=== PATIENT | female | born 1990 | race Caucasian/White ===

== ENCOUNTER 2018-02-10 17:46 | Emergency (ER) | payer BC, SELFPAY ==
--- NOTE | 2018-02-10 17:46 | DT_ITS ---
This patient was seen during an EMR downtime February 07, 2018 - February 14, 2018. This patient may have a combination of paper and electronic documentation or all paper documentation. All documentation is viewable within the e-chart portion of [facility] for each patient visit.
== END 2018-02-10 18:00 | disposition home or self-care (01) ==
LOC: ED 02-11 10:48
PROVIDERS: Emergency Provider Emergency Medicine
DX: O21.1 Hyperemesis gravidarum with metabolic disturbance (principal); Z3A.01 Less than 8 weeks gestation of pregnancy
CPT/HCPCS: 96374; 99283; J7030; A4216; J2405

== ENCOUNTER 2018-02-12 19:03 | Observation (INO) | payer BC, SELFPAY ==
--- NOTE | 2018-02-12 22:00 | DT_ITS ---
This patient was seen during an EMR downtime February 07, 2018 - February 14, 2018. This patient may have a combination of paper and electronic documentation or all paper documentation. All documentation is viewable within the e-chart portion of [facility] for each patient visit.
[2018-02-15 16:30] LABS: Thyroid Stim Hormone (TSH) 0.14 uIU/mL (0.358-3.74)
[2018-02-15 16:40] LABS: BUN 12 mg/dL (7-18); BUN/Creat Ratio 17.6 RATIO (10-20); Creatinine, Serum 0.68 mg/dL (0.55-1.02); EST Glomerular Filtration Rate 108 mL/min (>60); Est Glom Filt Rate - Afr Amer 131 mL/min (>60); Glucose 77 mg/dL (74-106)
[2018-02-15 16:41] LABS: Anion Gap 17 (5-15); Calcium,Total 9.2 mg/dL (8.5-10.1); Chloride 105 mmol/L (98-107); Sodium Level 136 mmol/L (136-145)
== END 2018-02-13 19:30 | disposition home or self-care (01) ==
LOC: ED 02-13 09:46 → MS3 02-13 11:25
PROVIDERS: Admitting Provider Obstetrics & Gynecology; Emergency Provider Emergency Medicine; Visit Provider Obstetrics & Gynecology
DX: O21.0 Mild hyperemesis gravidarum (principal); Z3A.01 Less than 8 weeks gestation of pregnancy; E86.0 Dehydration
CPT/HCPCS: 36415; 80048; 84443; 87086; 96361; 96374; 96376; 99218; 99283; 99284; J7030; A4216; G0378; J2405

== ENCOUNTER 2018-03-01 07:06 | Emergency (ER) | payer BC, SELFPAY ==
[2018-03-01 07:06] VITALS: BP 111/73; PULSE 76; RESP 18; TEMP 36.6; O2SAT 98; BMI 16.7
--- NOTE | 2018-03-01 07:34 | US_ITS ---
STUDY: FIRST TRIMESTER OBSTETRICAL ULTRASOUND REASON FOR EXAM: Female, 28 years old. Left pelvic pain. The patient is . LMP: December 23, 2017. TECHNIQUE: Transvaginal PRIOR ULTRASOUND: None. FINDINGS: There is visualization of a single gestational sac in a normal intrauterine position. There is a visualized yolk sac. The placenta is non-visualized. There is visualization of a live embryo. The crown-rump length (CRL) measures 3.4 cm, indicating an estimated gestational age (EGA) of 10 weeks, 2 days. There is demonstrated cardiac activity with a heart rate of 160 bpm. The estimated gestation age (EGA) by LMP is 9 weeks, 5 days. The estimated date of delivery ([place]) by LMP is September 29, 2018. The estimated gestation age (EGA) by US is 10 weeks, 2 days. The estimated date of delivery ([place]) by US is September 25, 2018. The uterus measures 10.4 cm x 7.3 cm x 6.4 cm. There is no demonstrated uterine fibroid. The cervix is closed. The right ovary measures 2.0 cm x 2.3 cm x 1.7 cm. There is no right ovarian cyst. There is no visualized right adnexal mass or complex lesion. The left ovary measures 3.0 cm x 2.5 cm x 2.1 cm. A dominant follicle is seen within the left ovary measuring 1.4 cm x 1.1 cm x 1.2 cm. There is no visualized left adnexal mass or complex lesion. There is no fluid in the cul de sac. US/Transvaginal w/Preg US IMPRESSION: Single live intrauterine gestation with a mean gestational age of 10 weeks and 2 days. Dominant follicle in the left ovary measuring 1.4 cm x 1.1 cm x 1.2 cm. Electronically Signed: Shahab Abbott MD at 8:41 EDT Tel [phone], Service support ,
--- NOTE | 2018-03-01 07:37 | ED.DCSUM_ITS ---
- ER Visit Summary Date of Service: 03/01/18 Chief Complaint: Left lower quadrant abdominal pain History of Present Illness: The patient is a 28 F presenting with left lower quadrant abdominal pain. Patient states this started in the middle of night. She started have pain in the left lower abdomen. She states that it then radiated to her hip. She denies injury. Denies vaginal bleeding. She is 10 weeks . Denies nausea or vomiting. She states symptoms lasted for approximately 3 hours. She has complete resolution of her symptoms currently. Physical Examination: Vitals are stable. Patient is afebrile. Alert no acute distress. HEENT exam is unremarkable. Neck is supple. Lungs are clear and equal bilaterally. Heart is regular rate and rhythm. Abdomen is soft nontender nondistended. No guarding rebound. Extremities are unremarkable. Skin is warm and dry. No focal neurologic deficit. Remainder of exam is unremarkable. Emergency Department Course and Treatment: Urinalysis shows 10-25 white blood cells, 25-50 red blood cells, 1+ bacteria. Pelvic ultrasound shows single live IUP 10 weeks 2 days. Patient is resting comfortably in the emergency department. She has no return of her symptoms. She is given Keflex. 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 Advised return to ED if worsening complaints Disposition: Discharge home Impression: Abdominal pain resolved; , UTI This note was generated with [employer] dictation software. It may contain incorrect words, spelling, and punctuation that were not noted in review of the chart prior to signing ED Disposition - Plan for ED Patient: Chief Complaint: Abd Pain Instructions: Care for a Healthy Baby, ED UTI Cystitis Female Prescriptions: Cephalexin Suspension [Keflex Suspension] 500 mg PO Q12 #7 days Referrals: Liset Waller CNM [Certified Nurse Cutter Operator [facility]] - Adonis Mccormack MD [Primary Care Provider] -
[2018-03-01 08:03] LABS: Color, Urine Yellow (Yellow); Glucose, Dipstick Normal (Normal); Ketone-Dipstick Negative (Negative); Leukocyte Esterase-Dipstick 100 /ul (Negative); Nitrite-Dipstick Negative (Negative); Occult Blood-Urine 250 /ul (Negative); Protein-Dipstick 30 mg/dl (Negative); Urine Bilirubin Dipstick Negative (Negative); Urine Clarity Sl. Cloudy (Clear); Urine Urobilinogen Normal (Normal)
[2018-03-01 08:19] LABS: Bacteria 1+ /hpf (None Seen); Mucous, Urine 1+ /hpf (<or=2+); Red Blood Cells-Urine 25-50 SEEN /hpf (0-5); Squamous Epithelial Cells - UA 0-5 SEEN /hpf (5-10); White Blood Cells 10-25 SEEN /hpf (0-5)
[2018-03-01 09:15] VITALS: BP 113/80; PULSE 67; RESP 16; O2SAT 100
--- NOTE | 2018-03-01 09:15 | ED.DEP ---
ED Disposition - Plan for ED Patient: Chief Complaint: Abd Pain Instructions: Care for a Healthy Baby, ED UTI Cystitis Female Prescriptions: Cephalexin Suspension [Keflex Suspension] 500 mg PO Q12 #7 days Referrals: Adonis Mccormack MD [Primary Care Provider] - Liset Waller CNM [Certified Nurse Complex Case Manager] -
== END 2018-03-01 09:52 | disposition home or self-care (01) ==
LOC: ED 07:31
PROVIDERS: Emergency Provider Emergency Medicine
DX: O23.41 Unspecified infection of urinary tract in pregnancy, first trimester (principal); Z3A.10 10 weeks gestation of pregnancy
CPT/HCPCS: 76817; 81001; 87086; 87088; 99282

== ENCOUNTER → 2018-08-08 12:03 | Outpatient (CLI) | payer BC, SELFPAY ==
[2018-08-08 12:44] LABS: Fetal Fibronectin Negative
--- OUTSIDE RECORDS SUMMARY | 2018-10-01 18:17 | XMS RPT_ITS ---
:1990 Author Organization OHIP Care Team Providers Name Role Phone DAYNA KAMINSKI Attending Unavailable LUZ WALLER (CNM) Referring Unavailable ASHISH GREGG Attending Unavailable ASHISH GREGG Attending Unavailable ASHISH GREGG Referring Unavailable ASHISH GREGG Attending Unavailable LUZ WALLER (CNM) Attending Unavailable ASHISH GREGG Referring Unavailable LUZ WALLER (CNM) Attending Unavailable LUZ WALLER (CNM) Referring Unavailable LUZ WALLER (CNM) Attending Unavailable LUZ WALLRE (CNM) Referring Unavailable LUZ WALLER (CNM) Attending Unavailable VELASQUEZ WALLERSSICA (CNM) Attending Unavailable VELASQUEZ WALLERSSICA (CNM) Attending Unavailable VELASQUEZ WALLERSSICA (CNM) Referring Unavailable NEYHART RAMIREZ, ASHISH Attending Unavailable PEYTON VILLAFANA (CNM) Attending Unavailable NEYHART RAMIREZ, ASHISH Attending Unavailable NEYHART RAMIREZ, ASHISH Referring Unavailable LUZ WALLER (CNM) Attending Unavailable KAMINSKI, DAYNA A Attending Unavailable NEYHART RAMIREZ, ASHISH Referring Unavailable KAMINSKI, DAYNA A Attending Unavailable NEYHART RAMIREZ, ASHISH Referring Unavailable WALLERLUZ (CNM) Attending Unavailable KAMINSKI, DAYNA A Attending Unavailable NEYHART RAMIREZ, ASHISH Referring Unavailable NEYHART RAMIREZ, ASHISH Referring Unavailable PEYTON VILLAFANA (CNM) Attending Unavailable NEYRYLIET RAMIREZ, ASHISH Attending Unavailable Irma Little Attending Unavailable Irma Little Referring Unavailable Adonis Mccormack Primary Care Unavailable Irma Little Admitting Unavailable Adonis Mccormack Primary Care Unavailable Nettie Spann Admitting Unavailable Nettie Spann Attending Unavailable ANT CESPEDES Attending Unavailable ANT CESPEDES Referring Unavailable Adonis Mccormack Primary Care Unavailable Adonis Mccormack Primary Care Unavailable Susan Arguelles Attending Unavailable Peyton Villafana Attending Unavailable Adonis Mccormack Primary Care Unavailable Peyton Villafana Referring Unavailable PROBLEMS PROBLEMS DATE TYPE CONDITION / CODE ATTENDING STATUS SOURCE 08/10/2018 Unknown O09.219 - Peyton Villafana Active [place] Supervision of [facility] with Hospital history of Repository pre-term labor, unspecified trimester / O09.219(ICD-10) 06/27/2018 Active Encounter for NA Active [facility] [place] [facility] supervision of [facility] other normal Repository , second trimester / Z34.82(ICD-10) 06/27/2018 Active 27 weeks gestation NA Active [facility] Z3A.27(ICD-10) Repository 03/16/2018 Active Anemia NA Active [facility] [place] [facility] complicating [facility] , first Repository trimester / O99.011(ICD-10) 03/16/2018 Active 12 weeks gestation NA Active [facility] Z3A.12(ICD-10) Repository 03/16/2018 Active Encounter for YAMILEX, Active [facility] [place] [facility] DAYNA A [facility] screening for Repository nuchal translucency / Z36.82(ICD-10) 02/21/2018 Active 8 weeks gestation LUZ WALLER Active [facility] [place] [facility] of / ([facility]) [facility] Z3A.08(ICD-10) Repository 02/14/2018 Active Supervision of NA Active [facility] [place] [facility] high risk [facility] , Repository unspecified, first trimester / O09.91(ICD-10) 02/14/2018 Active Unknown / LUZ WALLER Active [facility] [place] [facility] UNK(Unknown) ([facility]) [facility] Repository 06/02/2018 Unknown O21.0 - Mild Zana, Active [place] hyperemesis Nettie [facility] gravidarum / Hospital O21.0(ICD-10) Repository PROCEDURES PROCEDURES No Procedure Records FoundRESULTS RESULTS DISCHARGE INSTRUCTION Observed: 08/19/2018 Status: F Source: [place] 8:24 AM [facility] REPOSITORY [facility] Medical Records Department [address] [place] [address] Instructions for Home/Discharge Instructions 08/19/18822 MR#: [id number] Acct: [id number] Name: SHAYE QUEEN Rep #: [id number] : 1990 28 From: Ashish Ramirez MD PCP: Adonis Mccormack MD Status: ADM IN Discharge Diet: No Restrictions Discharge Activity: Return to Normal Activity, May not drive while taking narcotic pain medications., May Shower May resume sexual activity in: 4-6 weeks Additional Activity Instructions:: Nothing in the vagina for 4-6 weeks. You may return to work/school in 6 weeks. Call your doctor if your incision/area has: Continuous Slow Oozing, Sudden Increased Bleeding, Increased Pain/ Swelling, Increased Redness, Foul Smelling Discharge Additional Instructions: If you experience any of the following, contact your healthcare provider. * Bleeding that soaks a pad every hour for 2 hours * Fever 100.4 or higher * Unrelieved incision or abdominal pain * Swelling, redness, discharge or bleeding from your incision or episiotomy site * Your incision begins to separate * Problems urinating (including inability to urinate or burning while urinating). * Visual changes * Severe headache * Flu-like symptoms * Pain or redness in one of both of your breasts * Pain, warmth, tenderness or swelling in your legs, especially the calf area * Frequent nausea and vomiting * Symptoms of depression or anxiety If you experience any of the following, call 911 or go to the nearest Emergency Room. * Chest pain * Problems breathing * Seizure activity * Partial or complete paralysis of a body part, slurred speech, weakness or drooping of the face, or a sudden inability to walk or hold your balance Allergies/Adverse Reactions: Allergies Penicillins Allergy (Verified 03/01/18 07:08) Unknown Medications to take at Discharge Ibuprofen Liquid [Motrin Liquid] 600 mg PO Q6H PRN PRN 7 Days udc 08/19/18 The following prescriptions were given: Ibuprofen Liquid [Motrin Liquid] 600 mg PO Q6H PRN PRN 7 Days udc PRN Reason: Mild Pain (1-310) When: Call to make an appointment with your doctor in 6 weeks. If you had elevated Blood Pressure or 4th degree laceration you will need to be seen in 2 weeks. Primary Care Physician: Adonis Mccormack MD [Primary Care Provider] - Test Results: Test results from this visit will be discussed in further detail at your follow-up appointment, if applicable. 08/19/18823 <Electronically signed by Ashish Ramirez MD> Date Ashish Donald MD CC: Adonis Mccormack MD OPERATIVE REPORT Observed: 08/18/2018 Status: F Source: [place] 8:58 PM [facility] REPOSITORY [facility] Medical Records Department [address] [place] [address] Operative Report 08/18/182038 MR#: [id number] Acct: [id number] Name: SHAYE QUEEN Rep #: [id number] : 1990 28 From: Irma Little PCP: Adonis Mccormack MD Status: ADM IN Location: [id number] Vaginal Delivery Maternal Presentation: Active Labor Amniotic Membrane Rupture Type: Spontaneous Amniotic Fluid Description: Bloody Final VALENTINA: 09/22/18 Gestational age: 35 Weeks and 0 Days Date of Procedure: 08/18/18 Pre-Operative Diagnosis: (1) labor (2) Suspected placental abruption Post-Operative Diagnosis: (1) labor (2) Placental abruption Surgery/ Procedure Performed: Spontaneous Vaginal Delivery Type of Anesthesia: Epidural Description of Procedure: Patient prepped AND draped when c/c/+2. She pushed to deliver head. Shoulders AND body easily followed. placed on maternal abdomen AND 3VC clamped and cut in delayed fashion. Placenta delivered quickly with minimal traction. Good uterine tone obtained. Presentation: LUIS ANTONIO Placental Delivery Description: Spontaneous Placenta Disposition: [facility] Cord Vessel Description: 3 Vessels Cord Entanglement: None Estimated Blood Loss: 200ml Infant A gender: Female (1 minute): 8 (5 minute): 9 Episiotomy Description: None Laceration: None Medications given after delivery: IV Pitocin Complications: None 08/18/182057 <Electronically signed by Irma Little > Date Irma Little CC: Adonis Mccormack MD; Irma Little Signed CBC-COMPLETE BLOOD CNT Collected: 08/18/2018 Status: F Source: [place] NO DIFF 2:00 PM [facility] REPOSITORY TYPE CODE TESTS RESULT OUT OF RANGE REFERENCE UNITS LAB L100.1000 4.4-11.0 K/mm3 Normal WBC 9.8 LAB L100.1200 4.2-5.4 M/mm3 Low RBC 3.95 LAB L100.1300 12.0-15.0 g/dl Low HGB 11.1 LAB L100.1400 37-47 % Low HCT 33.9 LAB L100.1500 81-99 fL Normal MCV 85.8 LAB L100.1600 27.0-32.0 pg Normal MCH 28.1 LAB L100.1700 32-36 g/gl Normal MCHC 32.7 LAB L100.1810 11.6-14.6 % Normal RDW CV 12.7 LAB L100.1820 35.1-43.9 fl Normal RDW SD 39.1 LAB L100.1900 150-450 K/mm3 Normal PLT 193 LAB L100.2000 6.2-12.0 fl Normal MPV 11.5 Performed By: #### L100.0500, B101.7450 #### [facility] [address] [place], [address] TYPE AND SCREEN Collected: 08/18/2018 Status: F Source: [place] 2:00 PM [facility] REPOSITORY Order Comment: Reason for Type AND Screen/Red Cells: ROUTINE TYPE CODE TESTS RESULT OUT OF RANGE REFERENCE UNITS LAB B10.0800 A Normal BLOOD TYPE GEL POSITIVE LAB B100.4000 Normal Antibody NEGATIVE Screen Performed By: #### L100.0500, B101.7450 #### [facility] [address] [place], [address] HISTORY AND PHYSICAL Observed: 08/18/2018 Status: F Source: [place] EXAM 1:46 PM [facility] REPOSITORY [facility] Medical Records Department [address] [place] [address] History and Physical 08/18/18 1337 MR#: [id number] Acct: [id number] Name: SHAYE QUEEN Rep #: [id number] : 1990 28 From: Irma Little PCP: Adonis Mccormack MD Status: REG CLI Y Location: [place] [address] History Date of Admission: 08/18/18 Final VALENTINA: 09/22/18 Final VALENTINA Source: US <20 weeks Gestational age: 35 Weeks and 0 Days History of this : This is a 28 year-old, G [], P [], at weeks gestational age. Surgical History: Surgical History (Last Updated 08/18/18 @ 13:39 by Irma Little) History of breast surgery Z98.890 History of tonsillectomy Z90.89 Allergies Penicillins Allergy (Verified 03/01/18 07:08) Unknown Home Medications: Home Medications Hydroxyprogesterone Caproate [Shidler] 250 mg IM Q7D 08/18/18 Smoking Status: Never smoker Heart Tracin with mod variability, accels TOCO Analysis: Q 4-5 min History Past Pregnancies: Past Pregnancies h/o 32 AND 34wk deliverie Delivery Name GA/Weeks Outcome Route WeiInfant GeLabor LenAnesthesiDelivery Provider FOB Date ght [facility] a Location Labs: See [facility] H AND P Patient getting weekly Mckenna injections Physical Exam General: Alert, Oriented x3 Abdomen: Soft, Non Tender, Non-Distended, Gravid Estimated gestational size: Appropriate for gestational size Presentation: Cephalic Cervix Dilation (cm): 3 Station: -2 Effacement (%): 80 Assessment/Plan All Active Problems Threatened in early (Acute) UTI (urinary tract infection) during (Acute) 28yo female @ 35 weeks with threatened PTL Admit for observation FWB - BMZ #1 given, EFM reassuring Rapid GBS sent IVF AND admission labs Routine care 08/18/18 1346 <Electronically signed by Irma Little > Date Irma Little Cosigner Signature: Date (if applicable) CC: Adonis Mccormack MD; Irma Little Signed GROUP B STREP DNA Collected: 08/18/2018 Status: F Source: [place] BY PCR 1:35 PM [facility] REPOSITORY Order Comment: Has pt arrived? Y Comments: rapid gbs TYPE CODE TESTS RESULT OUT OF RANGE REFERENCE UNITS LAB L8200.0100 Negative Normal GBS TEST Negative RESULT Performed By: #### L8200.0000 #### [facility] [address] [place], [place], [address] Observed: 08/18/2018 Status: F Source: [place] CULTURE, GROUP B 12:00 AM [facility] STREPTOC[facility]CCUS REPOSITORY RICARDO Culture Group B Beta Streptococcus is not isolated. Performed By: #### M100.1800 #### [facility] [address] [place], [place], [address] PROGRESS Observed: 08/10/2018 Status: COMPLETED Source: [place] 9:58 AM [facility] REPOSITORY HNO ID: [id number] Author: Sangeetha Mccormack Ma Service: (none) Author Type: (none) Type: Progress Notes Filed: 08/10/2018 12:33 PM Note Text: Patient identified by name and date of . Shaye Queen presents today for a vaccination of Tdap. Patient denies an allergy to latex: yes Patient denies a severe (life-threatening) allergy to a previous dose of Tdap, DTP, DTaP, DT or Td vaccine. Yes Patient denies history of epilepsy or neurological problems: Yes Patient is afebrile and denies being moderately or severely ill: Yes Patient denies history of Guillain-Francitas Syndrome (a severe paralytic illness): Yes Tdap Adacel injection was given without incident. See immunizations for details of immunizations administered today. VIS sheet provided: Yes Provider Luz Waller CNM was present in office at time of injection. Sangeetha Mccormack Ma FIBRONECTIN Collected: 08/08/2018 Status: F Source: [place] 11:30 AM [facility] REPOSITORY Order Comment: CALL RESULTS TO: [phone] TYPE CODE TESTS RESULT OUT OF RANGE REFERENCE UNITS LAB L205.0100 Normal fFN Negative Performed By: #### L205.0000 #### [facility] [address] [place], [address] CNPN Observed: 08/08/2018 Status: COMPLETED Source: [place] 12:00 AM [facility] REPOSITORY Telephone (WOOB) SHAYE QUEEN ([id number]) 1990 F Date Time Provider Department 08/08/18 PEYTON VILLAFANA) ELROY During your visit today, we recorded the following information about you: Peyton Villafana APRN.CNM 08/08/2018 2:08 PM Signed Phone call to patient re: negative fFN result. No answer. Unable to leave a message in voice mail box as it was full. Will notify patient in person at next visit on Wednesday08/10/18. Peyton Villafana APRN.ANGY Morales LPN 08/08/2018 2:44 PM Signed Patient called back and was given results Allergies As of Date: 08/08/2018 Noted Allergy Reaction PENICILLINS 04/04/2009 Comments: CHILDHOOD REACTION Date Reviewed: 08/08/2018 Reviewed by: Peyton Villafana - Fully Assessed Reason for Visit: fFN negative result [Other] Primary Visit Diagnosis:History of delivery, currently [O09.219] Prescriptions as of 08/08/2018 Sig: MCKENNA (PF) 275 MG/1.1 ML SUB* PROMETHAZINE 25 MG RECTAL SUP* 25 mg by RECTAL route every 6* DOXYLAMINE 10 MG-PYRIDOXINE (* Day 1: Take 2 tabs at bedtime* Patient not taking: Reported on 02/21/2018 FOLIC ACID 1 MG TABLET Take 1 tablet by mouth once d* Patient not taking: Reported on 05/11/2018 Problem List As Of Date 08/08/2018 Noted Resolved History of delivery, currently *INVALID FOR* More... Vaginal bleeding in [O46.90] INVALID FOR*01/22/2016 More... UTI in [O23.40] INVALID FOR*01/22/2016 More... Nausea and vomiting in [O21.9] INVALID FOR*01/22/2016 More... History of mitral valve prolapse [Z86.79] INVALID FOR* More... Patient requested diagnostic testing [Z01.89] INVALID FOR*01/22/2016 More... 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 Nausea and vomiting in [O21.9] INVALID FOR*03/08/2017 More... MVP (mitral valve prolapse) [I34.1] INVALID FOR* More... UTI (urinary tract infection) in , ant*INVALID FOR*03/08/2017 More... History of delivery, currently *INVALID FOR*03/08/2017 More... History of recent travel [Z78.9] INVALID FOR*03/08/2017 More... BV (bacterial vaginosis) [N76.0, B96.89] INVALID FOR*03/08/2017 Nausea and vomiting during [O21.9] INVALID FOR* More... Anemia in [O99.019] INVALID FOR* More... Encounter Status:Closed by PEYTON VILLAFANA CNM on 08/08/18 PROGRESS Observed: 07/15/2018 Status: COMPLETED Source: [place] 10:10 AM [facility] REPOSITORY HNO ID: [id number] Author: Ashish Ramirez Service: (none) Author Type: Physician Type: Progress Notes Filed: 07/15/2018 11:17 AM Note Text: NST SUMMARY PROVIDER ASSESSMENT AND INTERPRETATION Shaye Sanchez is a 28 year old female, , who is at 30w1d with an AVLENTINA of 09/22/2018, by Ultrasound dating method. Indications for NST: Other: h/o PT deliveries- new onset back pain Baseline: 140 Variability: Moderate Accelerations: Present 15 X 15 Decelerations: None Contractions: TOCO: None Interpretation: Category I and Reactive SIGNATURE: Ashish Donald MD Observed: 07/14/2018 Status: F Source: [place] URINE CULTURE 11:00 [facility] REPOSITORY Sp. Request/Comment: - Specimen received in preservative Culture Result - <10,000 CFU/ml Normal urogenital marion Performed By: #### URCUL #### [facility] [place] [facility] [address], [place] [address] CBC AND DIFFERENTIAL Collected: 06/27/2018 Status: F Source: [place] 10:30 AM [facility] REPOSITORY TYPE CODE TESTS RESULT OUT OF REFERENCE UNITS RANGE LAB WBC 3.70-11.00 k/uL WBC 8.37 LAB RBC 3.90-5.20 m/uL Low RBC 3.59 LAB HGB 11.5-15.5 g/dL Low Hemoglobin 11.0 LAB HCT 36.0-46.0 % Low Hematocrit 34.0 LAB MCV 80.0-100.0 fL MCV 94.7 LAB MCH 26.0-34.0 pG MCH 30.6 LAB MCHC 30.5-36.0 g/dL MCHC 32.4 LAB RDWCV 11.5-15.0 % RDW-CV 12.1 LAB PLTCT 150-400 k/uL Platelet Count 196 LAB MPV 9.0-12.7 fL MPV 11.6 LAB ANEUT % Neut% 74.7 LAB AANEUT 1.45-7.50 k/uL Abs Neut 6.25 LAB ALYMP % Lymph% 19.0 LAB AALYMP 1.00-4.00 k/uL Abs Lymph 1.59 LAB AMONO % [place]% 5.4 LAB AAMONO <0.87 k/uL Abs [place] 0.45 LAB AEOS % Eosin% 0.7 LAB AAEOS <0.46 k/uL Abs Eosin 0.06 LAB ABASO % Baso% 0.2 LAB AABASO <0.11 k/uL Abs Baso <0.03 LAB AUNRBC 0 /100 WBC NRBCs 0.0 LAB ABNRBC <0.01 k/uL Absolute nRBC <0.01 LAB DTYP DTYPE Auto Diff Performed By: #### CBCDIF #### [facility] [address] [place], [place] [address] 50G, 1HR GEST. Collected: 06/27/2018 Status: F Source: [place] GSCN 10:30 AM [facility] REPOSITORY TYPE CODE TESTS RESULT OUT OF REFERENCE UNITS RANGE LAB GLUP 74-134 mg/dL Glucose 114 Screen, Preg Result Comment: [place] [employer] ([place]) guidelines state a gestational diabetes mellitus positive screen is made, in women not previously diagnosed with overt diabetes, when the 1 hr plasma glucose level is equal to or above 140 mg/dL. The [facility] [employer] [facility] [place] recommends a 135 mg/dL cutoff. Performed By: #### GLTGST #### [facility] [place] [facility] [address], [place] [address] PROGRESS Observed: 06/07/2018 Status: COMPLETED Source: [place] 3:35 PM [facility] [place] REPOSITORY HNO ID: [id number] Author: Sangeetha Mccormack Ma Service: (none) Author Type: (none) Type: Progress Notes Filed: 06/08/2018 12:09 PM Note Text: 28 year old female here for INACTIVATED INFLUENZA VACCINE. [id number] Season Patient is identified by name and date of : Yes [] CONTRAINDICATIONS color enhanced section Age less than 6 months? No Allergy to eggs, chicken, chicken feathers, or chicken dander? No Allergy to thimerosal (a preservative) or formaldehyde, gelatin? No History of severe reaction to any vaccine component or a previous dose of influenza vaccination? No History of Guillain-Francitas Syndrome within 6 weeks after a previous influenza vaccine? No Patient is not moderately or severely ill? No Current temperature greater or equal to 100.4F? No History of Bone Marrow Transplant prior 6 months or solid organ transplant in the past 3 months ? No History of fainting after a prior injection or medical procedure? No- ? If patient has fainted in the past, the CDC recommends sitting or lying down for 15 minutes after the vaccination. [] VERIFICATION color enhanced section Was the answer Yes for any of the above contraindications? No contraindications present. Acceptable to proceed with vaccine. Patient/guardian agrees the above answers are true to the best of their knowledge? Yes Flu vaccine information sheet given? Yes See immunization activity in [facility] for details of immunizations adminstered today. Patient age: [age] year old For The 7368-2859 Flu Season 6-35 months old: Fluzone 0.25 ml - IM (Preservative Free) 3 years of age: Fluzone 0.5 ml - IM (Preservative Free) 3 years and older: Fluzone 0.5 ml- IM-(with Preservatives) 65+ years old: 2-49 years old Fluzone High-Dose 0.5 ml - IM (Preservative Free) FLUMIST- intranasal REMEMBER: If patient is less than 9 years of age and this is the first vaccine of Influenza to be received in any flu season, they should receive a second dose in one months time. PROGRESS Observed: 05/26/2018 Status: COMPLETED Source: [place] 10:53 AM [facility] REPOSITORY HNO ID: [id number] Author: Dayna Kaminski Service: (none) Author Type: Physician Type: Progress Notes Filed: 05/26/2018 10:55 AM Note Text: A sylvester intrauterine has been noted. The heart rate is regular without dysrhythmias and falls within the normal range for gestational age. Estimated Date of Delivery: 09/22/18 EGA = 23w0d AGA at the 56 th% Evaluation of the cervix: Evaluation of the cervix has been performed by transvaginal ultrasound secondary to PTD x 2. The cervix measure 33.4 mm. No dynamic changes have been visualized. No sludge is noted near the cervix There is no evidence of hydrops. The amniotic fluid volume is in the normal range. The placenta is fundal. The limitations of ultrasound in detecting malformations and chromosomal anomalies has been addressed. Body mass index is 20.18 kg/m?. RECOMMENDATIONS: - Follow up ultrasound as clinically indicated - On 17 P PROGRESS Observed: 05/12/2018 Status: COMPLETED Source: [place] 9:28 AM [facility] REPOSITORY HNO ID: [id number] Author: Dayna Kaminski Service: (none) Author Type: Physician Type: Progress Notes Filed: 05/12/2018 9:31 AM Note Text: A sylvester intrauterine has been noted. The heart rate is regular without dysrhythmias and falls within the normal range for gestational age. Estimated Date of Delivery: 09/22/18 EGA = 21w0d Evaluation of the cervix: Evaluation of the cervix has been performed by transvaginal ultrasound secondary to PTD x 2. The cervix measure 35 mm. No dynamic changes have been visualized. No sludge is noted near the cervix There is no evidence of hydrops. The amniotic fluid volume is in the normal range. The placenta is fundal. The limitations of ultrasound in detecting malformations and chromosomal anomalies has been addressed. RECOMMENDATIONS: - Follow up ultrasound after 2 weeks for cervical length secondary to history of PTD at 32 and 34 weeks - On 17 P PROGRESS Observed: 04/27/2018 Status: COMPLETED Source: [place] 11:42 AM [facility] REPOSITORY HNO ID: [id number] Author: Dayna Kaminski Service: (none) Author Type: Physician Type: Progress Notes Filed: 04/27/2018 11:49 AM Note Text: A sylvester fetus in utero with symmetric measurements Adequate growth (AGA). Estimated Date of Delivery: 09/22/18 EGA = 18w6d The anatomy appears normal. There are no evident malformations and /or effusions. No genetic markers are noted. The amniotic fluid volume is within normal limits. Norml cervical length without dynamic changes The sensitivity of ultrasound in the detection of malformations overall is approximately 35%. RECOMMENDATIONS: - Follow up ultrasound every 2 weeks for cervical length secondary to PTD x 2 - 17 P therapy secondary to PTD at 32 and 34 weeks SEQUENT SCRN SECOND Collected: 04/13/2018 Status: F Source: [facility] 10:12 AM [facility] REPOSITORY TYPE CODE TESTS RESULT OUT OF REFERENCE UNITS RANGE LAB SE1PAP MoM 1.37 SE1 MALENA A LAB SE2AFP MoM 0.61 SE2 AFP LAB SE2HCG MoM 0.41 SE2 hCG LAB SE2UE3 MoM 1.31 SE2 Unconj uE3 LAB SE2INH MoM 0.67 SE2 Dimrc Inhibin A LAB SE1HCG MoM 0.79 SE1 hCG LAB SE2INT Screen Negative SE2 Interp Screen Negative LAB SE2SDN SE2 Scrn Rsk 1:9900 Dn Synd LAB SE2ADN 1:710 SE2 Age Rsk Dn Snyd LAB SE2STS SE2 Scr Rsk <1:13538 Trsmy 13 LAB SE2STR SE2 Scr Rsk <1:21533 Trsmy18 LAB SE2SON SE2 Scr Rsk 1:7000 ONTD LAB SE2RS View Seq Scrn results in Second Trim Scanned Documents link when available. LAB SEQLRV SEQ Staff Reviewed by Review Pardeep Sifuentes MD, PhD ([id number]) Performed By: #### SEQL2 #### [facility] [address] [address] CNPN Observed: 04/07/2018 Status: COMPLETED Source: [place] 12:00 AM [facility] REPOSITORY Telephone (HIOB) SHAYE SANCHEZ ([id number]) 1990 F Date Time Provider Department 04/07/18 COMB[facility] INFORMATION [facility]ENTER OFFICER MANE During your visit today, we recorded the following information about you: Mary Ellen Hendricks RN 04/07/2018 11:38 AM Signed Call placed to patient to check on status of Mckenna receipt and start. LMTCB. Mary Ellen Hendricks RN 04/07/2018 1:07 PM Signed Patient advises she has yet to hear from [facility] regarding shipping. Call to [facility] with patient on line. Ready to ship, $25 co-pay. Patient recently acquired a secondary [facility] insurance plan. Patient gave policy number to [facility] rep to process to see if this covers the co-pay. They will process this, it will take 3-5 business days. Will check back in a few days. Patient agrees to pay the 1st $25 co-pay in the meantime and knows there is not guarantee the 2nd plan will reimburse. The rep released it, and they will call her in 1 hour or so to arrange delivery to her home. Mary Ellen Hendricks RN 04/11/2018 8:48 AM Signed Call placed to patient to check on status of receipt and start of Mckenna. LMTCB. Mary Ellen Hendricks RN 04/11/2018 11:13 AM Signed Mckenna to arrive Wednesday. Patient to start it the same day. Allergies As of Date: 04/07/2018 Noted Allergy Reaction PENICILLINS 04/04/2009 Comments: CHILDHOOD REACTION Date Reviewed: 03/16/2018 Reviewed by: Sayra Greene Ma - Fully Assessed Reason for Visit: Care Coordination [4625] Cmt: Mckenna update Prescriptions as of 04/07/2018 Sig: PROMETHAZINE 25 MG RECTAL SUP* 25 mg by RECTAL route every 6* DOXYLAMINE 10 MG-PYRIDOXINE (* Day 1: Take 2 tabs at bedtime* Patient not taking: Reported on 02/21/2018 FOLIC ACID 1 MG TABLET Take 1 tablet by mouth once d* Problem List As Of Date 04/07/2018 Noted Resolved History of delivery, currently *INVALID FOR* More... Vaginal bleeding in [O46.90] INVALID FOR*01/22/2016 More... UTI in [O23.40] INVALID FOR*01/22/2016 More... Nausea and vomiting in [O21.9] INVALID FOR*01/22/2016 More... History of mitral valve prolapse [Z86.79] INVALID FOR* More... Patient requested diagnostic testing [Z01.89] INVALID FOR*01/22/2016 More... 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 Nausea and vomiting in [O21.9] INVALID FOR*03/08/2017 More... MVP (mitral valve prolapse) [I34.1] INVALID FOR* More... UTI (urinary tract infection) in , ant*INVALID FOR*03/08/2017 More... History of delivery, currently *INVALID FOR*03/08/2017 More... History of recent travel [Z78.9] INVALID FOR*03/08/2017 More... BV (bacterial vaginosis) [N76.0, B96.89] INVALID FOR*03/08/2017 Nausea and vomiting during [O21.9] INVALID FOR* More... Anemia in [O99.019] INVALID FOR* More... Encounter Status:Closed by MARY ELLEN HENDRICKS RN on 04/07/18 PROGRESS Observed: 03/16/2018 Status: COMPLETED Source: [place] 11:59 AM [facility] REPOSITORY O ID: [id number] Author: Dayna Kaminski Service: (none) Author Type: Physician Type: Progress Notes Filed: 03/16/2018 12:07 PM Note Text: A single intrauterine gestational sac is noted with a regular outline. There is no decidual hemorrhage. The yolk sac is visualized and shows normal shape and echogenicity. A living single fetus is noted. The heart rate is within normal range. The CRL corresponds to the gestational age. Estimated Date of Delivery: 09/22/18 EGA = 12w6d Negative NT screen for Trisomy 21. The sensitivity of nuchal translucency measurement for Trisomy 21 is ~60%. The anatomy appears normal in the areas visualized. RECOMMENDATIONS: - The patient requested the sequential screening. The test has been ordered - Ultrasound examination at 18 to 20 weeks SEQUENT SCRN FIRST Collected: 03/16/2018 Status: F Source: [place] [facility] PATIENTS ONLY 11:29 AM [facility] REPOSITORY TYPE CODE TESTS RESULT OUT OF REFERENCE UNITS RANGE LAB SE1PAP MoM 1.23 SE1 MALENA A LAB SE1HCG MoM 0.77 SE1 hCG LAB SE1INT Final result pending second Final trimester SE1 result pending sample Interp second trimester sample LAB SE1SDN SE1 Scrn 1:5400 Rsk Dn Synd LAB SE1ADN 1:530 SE1 Age Rsk Dn Synd LAB SE1STR SE1 Scr <1:21238 Rsk Trsmy18 LAB SE1ATR SE1 Age 1:2000 Rsk Trsmy18 LAB SE1RS View Seq Scrn results in First Trim Scanned Documents link when available. LAB SEQLRV SEQ Staff Reviewed by Review Pardeep Sifuentes MD, PhD ([id number]) Performed By: #### SEQL1 #### [facility] [place] [facility] [address] [place], [place] [address] Observed: 03/08/2018 Status: F Source: [place] URINE CULTURE 11:15 AM [facility] REPOSITORY Sp. Request/Comment: - Specimen received in preservative Culture Result - <10,000 CFU/ml Normal urogenital marion Performed By: #### URCUL #### [facility] [address] [address] CNPN Observed: 03/03/2018 Status: COMPLETED Source: [place] 12:00 [facility] REPOSITORY Telephone (WOOB) TYRELMARGESHAYE WANG ([id number]) 1990 F Date Time Provider Department 03/03/18 IRMA LITTLE During your visit today, we recorded the following information about you: Demetrice High RN 03/03/2018 11:37 AM Signed Patient 10w0d calling to notify office that she was seen at [facility] ER on 03/01 for abdominal pain. Per patient while she was in the ER it was determined that she had a bladder infection and she was discharged home with an Rx for Keflex, 500 mg BID x 7 days. Patient states she is concerned because the antibiotic is making her nausea worse and she vomited twice yesterday. Per patient she is taking the antibiotic with food. Patient has been struggling with nausea/vomiting this and is currently on phenergan suppositories. Patient states the suppositories have been helping, but states she stopped them because she wasn't sure if she could take them while she was on the antibiotic. Patient instructed to start using the phenergan suppositories again and to continue taking antibiotic. Per patient urinary symptoms have improved. Please address if you have any further instructions for the patient. ER report in [address] for review. Demetrice Little MD 03/03/2018 2:37 PM Signed Please check for urine culture at [facility] If not collected there please get a urine culture She can stop antibiotics until we have the results MD Giovani Pearson LPN 03/03/2018 3:00 PM Signed [facility] is going to run a urine culture off urine sample they collected 03/01/18. Patient notified of directions Josette Sykes RN 03/08/2018 9:24 AM Signed Luz, please review Urine culture results. patient states she is having frequency of urination and pelvic pain that radiates from front to back starting at 3 AM this morning. . Rates pain an 8-10 on pain scale. Please see urine culture report on your desk Carolyn and review in Dr Little absence. Luz Waller APRN.CNM 03/08/2018 9:32 AM Signed Patient was seen in ER on 03/01/18 and started on Keflex and stopped it on 03/03/18. Please have her come in for appointment today. Probable contamination of U/A with low colony count. Luz Waller APRN.CNM Demetrice High RN 03/08/2018 10:02 AM Signed Patient called and appointment given for today. Demetrice High RN Allergies As of Date: 03/03/2018 Noted Allergy Reaction PENICILLINS 04/04/2009 Comments: CHILDHOOD REACTION Date Reviewed: 02/21/2018 Reviewed by: Sangeetha Mccormack Ma - Fully Assessed Reason for Visit: Patient Update [1234] Prescriptions as of 03/03/2018 Sig: PROMETHAZINE 25 MG RECTAL SUP* 25 mg by RECTAL route every 6* DOXYLAMINE 10 MG-PYRIDOXINE (* Day 1: Take 2 tabs at bedtime* Patient not taking: Reported on 02/21/2018 FOLIC ACID 1 MG TABLET Take 1 tablet by mouth once d* Problem List As Of Date 03/03/2018 Noted Resolved History of delivery, currently *INVALID FOR* More... Vaginal bleeding in [O46.90] INVALID FOR*01/22/2016 More... UTI in [O23.40] INVALID FOR*01/22/2016 More... Nausea and vomiting in [O21.9] INVALID FOR*01/22/2016 More... History of mitral valve prolapse [Z86.79] INVALID FOR* More... Patient requested diagnostic testing [Z01.89] INVALID FOR*01/22/2016 More... 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 Nausea and vomiting in [O21.9] INVALID FOR*03/08/2017 More... MVP (mitral valve prolapse) [I34.1] INVALID FOR* More... UTI (urinary tract infection) in , ant*INVALID FOR*03/08/2017 More... History of delivery, currently *INVALID FOR*03/08/2017 More... History of recent travel [Z78.9] INVALID FOR*03/08/2017 More... BV (bacterial vaginosis) [N76.0, B96.89] INVALID FOR*03/08/2017 Nausea and vomiting during [O21.9] INVALID FOR* More... Anemia in [O99.019] INVALID FOR* More... Encounter Status:Closed by GIOVANI MORALES LPN on 03/03/18 EMERGENCY DEPARTMENT Observed: 03/01/2018 Status: F Source: [place] SUMMARY 9:23 AM [facility] REPOSITORY [facility] Medical Records Department [address] [place] [address] Emergency Department Summary 03/01/18 0736 MR#: [id number] Acct: [id number] Name: SHAYE SANCHEZ Rep #: [id number] : 1990 28 From: Susan Arguelles MD PCP: Adonis Mccormack MD Status: REG ER - ER Visit Summary Date of Service: 03/01/18 Chief Complaint: Left lower quadrant abdominal pain History of Present Illness: The patient is a 28 F presenting with left lower quadrant abdominal pain. Patient states this started in the middle of night. She started have pain in the left lower abdomen. She states that it then radiated to her hip. She denies injury. Denies vaginal bleeding. She is 10 weeks . Denies nausea or vomiting. She states symptoms lasted for approximately 3 hours. She has complete resolution of her symptoms currently. Physical Examination: Vitals are stable. Patient is afebrile. Alert no acute distress. HEENT exam is unremarkable. Neck is supple. Lungs are clear and equal bilaterally. Heart is regular rate and rhythm. Abdomen is soft nontender nondistended. No guarding rebound. Extremities are unremarkable. Skin is warm and dry. No focal neurologic deficit. Remainder of exam is unremarkable. Emergency Department Course and Treatment: Urinalysis shows 10-25 white blood cells, 25-50 red blood cells, 1+ bacteria. Pelvic ultrasound shows single live IUP 10 weeks 2 days. Patient is resting comfortably in the emergency department. She has no return of her symptoms. She is given Keflex. She is advised to follow-up with her RESIDENCY COORDINATOR. Advised return to ED if worsening complaints Disposition: Discharge home Impression: Abdominal pain resolved; , UTI This note was generated with Hire[employer] software. It may contain incorrect words, spelling, and punctuation that were not noted in review of the chart prior to signing ED Disposition - Plan for ED Patient: Chief Complaint: Abd Pain Instructions: Care for a Healthy Baby, ED UTI Cystitis Female Prescriptions: Cephalexin Suspension [Keflex Suspension] 500 mg PO Q12 #7 days Referrals: Luz Waller CNM [Certified Nurse Mail Forwarding System Markup Clerk] - Adonis Mccormack MD [Primary Care Provider] - What to do if you have Problems For any increased pain, shortness of breath, bleeding, nausea or vomiting, chest pain, or any unexpected problems, contact your Primary Care Provider. Call [facility] ([phone]) or report to the closest Emergency Room. Call 911 if necessary. 03/01/18922 <Electronically signed by Susan Arguelles MD> Date Susan Arguelles MD Cosigner Signature (If Indicated): Date CC: Adonis Mccormack MD DISCHARGE INSTRUCTION Observed: 03/01/2018 Status: F Source: [place] 9:19 AM [facility] REPOSITORY [facility] Medical Records Department [address] [place] [address] Discharge Instruction 03/01/18914 MR#: [id number] Acct: [id number] Name: SHAYE SANCHEZ Rep #: [id number] : 1990 28 From: Susan Arguelles MD PCP: Adonis Mccormack MD Status: REG ER ED Disposition - Plan for ED Patient: Chief Complaint: Abd Pain Instructions: Care for a Healthy Baby, ED UTI Cystitis Female Prescriptions: Cephalexin Suspension [Keflex Suspension] 500 mg PO Q12 #7 days Referrals: Adonis Mccormack MD [Primary Care Provider] - Luz Waller CNM [Certified Nurse Mail Forwarding System Markup Clerk] - What to do if you have Problems For any increased pain, shortness of breath, bleeding, nausea or vomiting, chest pain, or any unexpected problems, contact your Primary Care Provider. Call [facility] ([phone]) or report to the closest Emergency Room. Call 911 if necessary. 03/01/18 0919 <Electronically signed by Susan Arguelles MD> Date Susan Arguelles MD Cosigner Signature (If Indicated): Date CC: Adonis Mccormack MD URINALYSIS, COMPLETE Collected: 03/01/2018 Status: F Source: [place] 7:35 AM [facility] REPOSITORY Order Comment: How was Urine Obtained? DRAGLINE MECHANIC TO SPECIFY TYPE CODE TESTS RESULT OUT OF RANGE REFERENCE UNITS LAB L400.3000 Yellow COLOR Normal Yellow LAB L400.3050 Clear Normal CLARITY Sl. Cloudy LAB L400.3200 Normal mg/dl Normal GLUCOSE, UR Normal LAB L400.3300 Negative mg/dL Normal BILIRUBIN URINE Negative LAB L400.3400 Negative mg/dl Normal KETONE UR Negative LAB L400.3465 1.002-1.030 Normal SP.GR. DIPSTX 1.010 LAB L400.3550 5.0 - 8.0 pH UR Normal 7.0 LAB L400.3600 Negative mg/dl High PROT 30 DIPSTX LAB L400.3700 Normal mg/dl Normal UROBILI Normal LAB L400.3750 Negative Normal NITRITE UR Negative LAB L400.3780 Negative /ul High OCCULT BLOOD-UR 250 LAB L400.3800 Negative /ul High LEUK ESTERASE 100 LAB L400.4050 0-5 /hpf WBC Normal 10-25 SEEN LAB L400.4100 0-5 /hpf Normal RBC-UA 25-50 SEEN LAB L400.4150 5-10 /hpf SQUAM Normal EPI 0-5 SEEN LAB L400.4300 None Seen /hpf 1+ Normal BACTERIA LAB L400.4350 <or=2+ /hpf 1+ Normal MUCUS, URINE Performed By: #### L400.0001 #### [facility] [address] [place], [place], [address] TRANSVAGINAL W/PREG US Observed: 03/01/2018 Status: F Source: [place] 7:34 AM [facility] REPOSITORY [facility] [place] [address] Transvaginal w/Preg US MR#: [id number] Acct: [id number] Name: SHAYE SANCHEZ Rep #: [id number] : 1990 F 28 From: Shahab Abbott MD PCP: Adonis Mccormack MD Status: REG ER Study: Transvaginal w/Preg US Date of Exam: 03/01/18 Exam# [id number] Ordering Dr: Susan Arguelles MD STUDY: FIRST TRIMESTER OBSTETRICAL ULTRASOUND REASON FOR EXAM: Female, 28 years old. Left pelvic pain. The patient is . LMP: December 23, 2017. TECHNIQUE: Transvaginal PRIOR ULTRASOUND: None. FINDINGS: There is visualization of a single gestational sac in a normal intrauterine position. There is a visualized yolk sac. The placenta is non-visualized. There is visualization of a live embryo. The crown-rump length (CRL) measures 3.4 cm, indicating an estimated gestational age (EGA) of 10 weeks, 2 days. There is demonstrated cardiac activity with a heart rate of 160 bpm. The estimated gestation age (EGA) by LMP is 9 weeks, 5 days. The estimated date of delivery ([place]) by LMP is September 29, 2018. The estimated gestation age (EGA) by US is 10 weeks, 2 days. The estimated date of delivery ([place]) by US is September 25, 2018. The uterus measures 10.4 cm x 7.3 cm x 6.4 cm. There is no demonstrated uterine fibroid. The cervix is closed. The right ovary measures 2.0 cm x 2.3 cm x 1.7 cm. There is no right ovarian cyst. There is no visualized right adnexal mass or complex lesion. The left ovary measures 3.0 cm x 2.5 cm x 2.1 cm. A dominant follicle is seen within the left ovary measuring 1.4 cm x 1.1 cm x 1.2 cm. There is no visualized left adnexal mass or complex lesion. There is no fluid in the cul de sac. US/Transvaginal w/Preg US IMPRESSION: Single live intrauterine gestation with a mean gestational age of 10 weeks and 2 days. Dominant follicle in the left ovary measuring 1.4 cm x 1.1 cm x 1.2 cm. Electronically Signed: Shahab Abbott MD at 8:41 EDT Tel [phone], Service support , CC: Susan Arguelles MD; Adonis Mccormack MD Bookkeepers Supervisor: Signed Observed: 02/28/2018 Status: F Source: [place] CULTURE, URINE 12:00 AM [facility] REPOSITORY THIS IS FROM WHEN PT WAS IN THE ER ON 03/01/18 THEY WANT A CULTURE PLEASE ADD IF POSSIBLE IF NOT THIS CANCEL THIS TEST. Urine Culture ORGANISM 1: Mixed Gram Positive Organisms [place] Count 1000-10,000 MIX CULTURE Mixed contaminants. Submit a new specimen if indicated. Performed By: #### M100.0650 #### [facility] [address] [place] [address]. [place], [address] DOWNTIME REPORT Observed: 02/23/2018 Status: F Source: [place] 2:17 PM [facility] Medical Records Department [facility] [place] [address] Downtime Report MR#: [id number] Acct: [id number] Name: SHAYE SANCHEZ Rep #: [id number] : 1990 28 From: Walker Pop MD PCP: Adonis Mccormack MD Status: DEP ER This patient was seen during an EMR downtime February 07, 2018 - February 14, 2018. This patient may have a combination of paper and electronic documentation or all paper documentation. All documentation is viewable within the e-chart portion of [employer] for each patient visit. DOWNTIME REPORT Observed: 02/23/2018 Status: F Source: [place] 1:25 PM [facility] REPOSITORY [facility] Medical Records Department [address] [facility] [place] [address] Downtime Report MR#: [id number] Acct: [id number] Name: SHAYE SANCHEZ Rep #: [id number] : 1990 28 From: Walker Pop MD PCP: Adonis Mccormack MD Status: DIS BENI This patient was seen during an EMR downtime February 07, 2018 - February 14, 2018. This patient may have a combination of paper and electronic documentation or all paper documentation. All documentation is viewable within the e-chart portion of [employer] for each patient visit. TOXICOLOGY SCREEN,UR Collected: 02/14/2018 Status: F Source: [place] 2:45 PM [facility] [place] REPOSITORY TYPE CODE TESTS RESULT OUT OF REFERENCE UNITS RANGE LAB UPCP2 Negative Negative Phencyclidin e, Urine Result Comment: Cutoff threshold at 25 ng/mL. LAB UBENZ2 Negative Benzodiazepines, Ur Negative Result Comment: Cutoff threshold at 200 ng/mL. LAB UCOC2 Negative Cocaine, Negative Urine Result Comment: Cutoff threshold at 300 ng/mL. LAB UAMPH2 Negative Amphetamines, Urine Negative Result Comment: Cutoff threshold at 1000 ng/mL. LAB UTHC2 Negative Cannabinoids, Urine Negative Result Comment: Cutoff threshold at 50 ng/mL. LAB UOPI2 Negative Opiates, Negative Urine Result Comment: Cutoff threshold at 300 ng/mL. LAB UBARB2 Negative Barbiturates, Urine Negative Result Comment: Cutoff threshold at 200 ng/mL. LAB UETOH <11 mg/dL <11 Ethanol, Urine LAB UOXYC Negative Oxycodone, Negative Urine Result Comment: Cutoff threshold at 100 ng/mL. Comment: Immunoassay screen only. Cross reactivity with other substances can occur with immunoassay screening. Detection of any drug(s) in this urine toxicology panel is presumptive only. These tests are for med ical purposes only and should not be used for compliance monitoring, legal, or forensic use. Samples should be within normal physiological conditions (e.g. pH). This assay does not include adulteration/specimen validity testing. In clinical settings, confirmatory testing is at the practitioner's discretion [1]. If clinically indicated, confirmation by high specificity, quantitative methodology, which includes adulteration/spec imen validity testing, may be requested on the same specimen through Client Services ([phone]) if contacted within 48 hours of initial testing. [1]Substance Abuse and Mental Health Services Administration (2012). Clinical Drug Testing in Primary Care Technical Assistance Publication Series 32. Department of Health and Human Services, [place], p.10. These tests were developed and their performance characteristics determined by [facility] ( [facility]). They have not been cleared or a pproved by the FDA. [facility] is regulated under CLIA as qualified to perform high complexity testing. These tests are used for clinical purposes. They should not be regarded as investigational or for research. Performed By: #### UTOX2 #### [facility] [place] [facility] [address], [place] [id number] CBC Collected: 02/14/2018 Status: F Source: [place] 2:04 [facility] REPOSITORY TYPE CODE TESTS RESULT OUT OF REFERENCE UNITS RANGE LAB WBC 3.70-11.00 k/uL WBC 8.08 LAB RBC 3.90-5.20 m/uL RBC 5.03 LAB HGB 11.5-15.5 g/dL Hemoglobin 14.8 LAB HCT 36.0-46.0 % Hematocrit 43.4 LAB MCV 80.0-100.0 fL MCV 86.3 LAB MCH 26.0-34.0 pG MCH 29.4 LAB MCHC 30.5-36.0 g/dL MCHC 34.1 LAB RDWCV 11.5-15.0 % RDW-CV 12.1 LAB PLTCT 150-400 k/uL Platelet Count 250 LAB MPV 9.0-12.7 fL MPV 11.0 LAB ABSNUC <0.01 k/uL Absolute nRBC <0.01 Performed By: #### CBC, CMP, TSH, SYPHGX, RUBIGG, HBSAG, HIV12C #### [facility] [address] [place], [place] [address] COMP METABOLIC PANEL Collected: 02/14/2018 Status: F Source: [place] 2:04 [facility] REPOSITORY TYPE CODE TESTS RESULT OUT OF REFERENCE UNITS RANGE LAB TP 6.3-8.0 g/dL Protein, High Total 8.3 LAB ALB 3.9-4.9 g/dL Albumin 4.6 LAB CA 8.5-10.2 mg/dL Calcium, Total 9.2 LAB TBIL 0.2-1.3 mg/dL Bilirubin, Total 1.3 LAB ALKP 32-117 U/L Alkaline Phosphatase 70 LAB AST 13-35 U/L AST 27 LAB GLU 74-99 mg/dL Glucose 84 Result Comment: The [place] Diabetes Association (ADA) provides guidance for cutoff values for fasting glucose and random glucose. The ADA defines fasting as no caloric intake for at least 8 hours. Fas ting plasma glucose results between 100 to 125 mg/dL indicate increased risk for diabetes (prediabetes). Fasting plasma glucose results greater than or equal to 126 mg/dL meet the criteria for diagnosis of diabetes. In the absence of unequivocal hyperglycemia, results should be confirmed by repeat testing. In a patient with classic symptoms of hyperglycemia or hyperglycemic crisis, random plasma glucose results greater than or equal to 200 mg/dL meet the criteria for diagnosis of diabetes. Reference: Standards of Medical Care in Diabetes 2016, [place] Diabetes Association. Diabetes Care. 2016.39(Suppl 1). LAB BUN 7-21 mg/dL BUN 8 LAB CRET 0.58-0.96 mg/dL Creatinine Low 0.56 LAB NA 136-144 mmol/L Sodium Low 135 LAB K 3.7-5.1 mmol/L Potassium Low 3.5 LAB CL 97-105 mmol/L Chloride 99 LAB CO2 22-30 mmol/L CO2 Low 18 LAB AGAP 9-18 mmol/L Anion Gap 18 LAB ALT 7-38 U/L ALT 21 LAB GFRAA eGFR- Amer. >60 LAB GFRNAA . eGFR-All Other Races >60 Result Comment: eGFR (Estimated GFR) Units of measure: mL/min/1.73 meters squared eGFR is derived from the reexpressed MDRD Study equation using the following parameters: serum creatinine, age, gender and race. The creatinine assay has been calibrated to be traceable to IDMS. An eGFR <60 mL/min/1.73m2 for >3 months is consistent with chronic kidney disease. Refer to KDOQI guidelines for clinical interpretation. In patients with unstable renal function, e.g. those with acute kidney injury, the eGFR may not accurately reflect actual GFR. Performed By: #### CBC, CMP, TSH, SYPHGX, RUBIGG, HBSAG, HIV12C #### [facility] [address] [place], [place] [address] TSH Collected: 02/14/2018 Status: F Source: [place] 2:04 PM [facility] [place] REPOSITORY TYPE CODE TESTS RESULT OUT OF RANGE REFERENCE UNITS LAB TSH 0.400-5.500 uU/mL Low TSH 0.135 Result Comment: If the patient is , TSH reference range varies by gestational period: First Trimester 0.100-2.500 uU/mL Second Trimester 0.200-3.000 uU/mL Third Trimester 0.300-3.000 uU/mL References: 1. Cm L, Barrie M, Butch EK, et al. Management of Thyroid Dysfunction during and : An Endocrine Society Clinical Practice Guideline. J Clin Endocrinol Metab, 2012:97:6930-4941. 2. [place] BLANKENSHIP. Overview of thyroid disease in . UpToDate. 2016. Accessed on February 21, 2016. Performed By: #### CBC, CMP, TSH, SYPHGX, RUBIGG, HBSAG, HIV12C #### [facility] [address] [place] [address] SYPHILIS IGG WITH Collected: 02/14/2018 Status: F Source: [facility] 2:04 PM [facility] REPOSITORY TYPE CODE TESTS RESULT OUT OF REFERENCE UNITS RANGE LAB SYPHQL Nonreactive Syphilis IgG, Nonreactive Qual Result Comment: In conjunction with this result, the immune status of the patient should be evaluated based on their clinical status, related risk factors, and other diagnostic test results. LAB SYPHLG AI Syphilis IgG <0.2 Result Comment: Antibody index is interpreted as follows: Non reactive SPECIMENS <=0.8 Weak reactive SPECIMENS 0.9 to 5.9 Reactive SPECIMENS >=6.0 Performed By: #### CBC, CMP, TSH, SYPHGX, RUBIGG, HBSAG, HIV12C #### [facility] [address] [place] [address] RUBELLA IGG ANTIBODY Collected: 02/14/2018 Status: F Source: [place] 2:04 PM [facility] REPOSITORY TYPE CODE TESTS RESULT OUT OF RANGE REFERENCE UNITS LAB RUBGQL Negative Abnormal Rubella IgG Positive Alert Ab, Qual Result Comment: Sample is considered positive for IgG antibodies to rubella virus. A positive result indicates previous exposure to Rubella virus or vaccination. LAB RUBQNT Index Value Rubella IgG Ab 4.05 Result Comment: Index values are interpreted as follows: Negative specimens <0.90 Equivocol specimens 0.90 to 0.99 Positive specimens >0.99 The magnitude of the measured result is not indicative of the amount of antibody present. Performed By: #### CBC, CMP, TSH, SYPHGX, RUBIGG, HBSAG, HIV12C #### [place] [phone] HEPATITIS B SURF. AG Collected: 02/14/2018 Status: F Source: [place] [address] [place] [address] REPOSITORY TYPE CODE TESTS RESULT OUT OF REFERENCE UNITS RANGE LAB HBSAG Negative Hepatitis B Negative Surf. Ag Performed By: #### CBC, CMP, TSH, SYPHGX, RUBIGG, HBSAG, HIV12C #### [place] [phone] HIV 12 COMBO (AG/AB) Collected: 02/14/2018 Status: F Source: [place] [address] [place] [address] REPOSITORY TYPE CODE TESTS RESULT OUT OF REFERENCE UNITS RANGE LAB HVAGAB Non Reactive HIV Non Reactive 12 Ag/Ab Result Comment: (NOTE) HIV Information: [place] Rev. Code 3701.243(E): This information has been disclosed to you from confidential records protected from disclosure by state law. You shall make no further disclosure of this information without the specific, written, and informed release of the individual to whom it pertains, or as otherwise permitted by state law. A general authorization for the release of medical or other information is not sufficient for the purpose of the release of HIV test results or diagnoses. Performed By: #### CBC, CMP, TSH, SYPHGX, RUBIGG, HBSAG, HIV12C #### [place] [phone] TYPE AND SCR,PRENATL Collected: 02/14/2018 Status: F Source: [place] [address] [place] [address] REPOSITORY TYPE CODE TESTS RESULT OUT OF REFERENCE UNITS RANGE LAB %ABR A ABO/RH(D) POSITIVE LAB % Antibody NEG Screen Performed By: #### TSPN #### [address] [place], [place] [address] GC/CHLAMYDIA AMPLIF Collected: 02/14/2018 Status: F Source: [place] 2:00 PM [facility] REPOSITORY TYPE CODE TESTS RESULT OUT OF REFERENCE UNITS RANGE LAB GCCTSR GC/Chlam Amp Cervix Source LAB GCAMPL GC Negative Amplification for Neisseria gonorrhoeae by amplification. LAB CLAMPL Chlamydia Negative Amplif for Chlamydia trachomatis by amplification. Performed By: #### GCCT #### [address] [address] Observed: 02/14/2018 Status: F Source: [place] URINE CULTURE 2:00 PM [facility] REPOSITORY Sp. Request/Comment: - Specimen received in preservative Culture Result - No growth (<1,000 CFU/ml) Performed By: #### URCUL #### [address] [address] PROGRESS Observed: 02/14/2018 Status: COMPLETED Source: [place] 1:03 PM [facility] REPOSITORY HNO ID: [id number] Author: Luz Waller Service: (none) Author Type: Mail Forwarding System Markup Clerk Type: Progress Notes Filed: 02/14/2018 4:35 PM Note Text: Dictating Machine Transcriber offered: Patient declines. INITIAL OB ASSESSMENT OB Provider: Luz Waller CNM HPI: Shaye Sanchez is a 28 year old female here to establish Obstetrical Care. Patient's last menstrual period was 12/23/2017 (exact date). from OB Dating Form. Cycle length: 26 days 7w4d with VALENTINA: 09/29/18 Complaints: nausea and vomiting. History of severe N/V with last and had Reglan pump. Has been seen in ER twice and admitted to Medical Surgical unit on 02/12/18 for Hypremesis with weight loss and dehydration with metabolic disturbance. Patient was discharged home yesterday evening. Since being home emesis has only been twice, once when leaving hospital and once today when coming to appointment. Phenergan suppositories have helped and sleeping a lot of the time. Drinking water but has not attempted to eat. Also frequent spitting. Reviewed emotional state through this, denies depression at this time but does have some sadness due to not feeling well. Denies any SI/HI. Boyfriend very attentive and supportive. 110 lbs prior to , currently 100lbs, 10lb weight loss. was unplanned but accepted. Obstetric History T0 L2 SAB1 TAB0 Ectopic0 Multiple0 Live Births2 Prior : never History of 4th degree laceration: No Patient's Risk Screening for delivery: History of abnormal pap: Yes Prior treatment for cervical dysplasia: none. History of STDs: chlamydia Tobacco use: No Caffeine use: Yes Drug use: No Alcohol use: No Multivitamin with Folic acid: No, unable to take pills. Occupation: [employer] heritage: No Would refuse blood transfusion if medically necessary: No BMI 16.14 kg/(m2) Patient BMI over 30? 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 No current facility-administered medications on file prior to visit. Review of Systems: GENERAL: Negative for: Fever or Chills HEENT: Negative for: Headache, Impaired Vision, Ringing in Ears, Nosebleeds NECK: Negative for: Swelling, Pain, Stiffness RESPIRATORY: Negative for: Cough, Shortness of breath, Wheezing GASTROINTESTINAL: Negative for: Heartburn, Constipation, Diarrhea, Blood in stool. Nausea and Vomiting, seen in ER for multiple visit. MUSCULOSKELETAL: Negative for: Muscle or joint pain, stiffness, Joint swelling NEUROLOGIC/PSYCHIATRIC: Negative for: Weakness, Paralysis, Numbness, Tingling, Tremor, Anxiety, Depression, Memory loss SKIN: Negative for: Rash, Itching GENITOURINARY: Negative for: vaginal itching, vaginal discharge, hematuria or dysuria PHYSICAL EXAM: BP 96/58 Ht 5' 6 (1.68m) Wt 100 lb (45.4kg) LMP 12/23/2017 BMI 16.15 kg/(m2). GENERAL: pleasant female in no apparent distress DERMATOLOGY: Normal, without lesions, non-icteric and non-hirsute NECK: Supple, full range of motion, no adenopathy and thyroid normal CHEST: Clear to auscultation Normal inspiratory effort Regular rate and rhythm No murmurs, clicks, rubs or gallops BREAST: soft, non-tender, symmetric, no dominant mass, normal nipple-areolar complex, no lymphadenopathy and no nipple discharge ABDOMEN: soft, non-tender and no masses NEURO: alert and oriented x3,exam grossly non-focal PELVIS: External genitalia normal without lesions. Perineal body intact. No vaginal or cervical lesions. Cervix closed. Uterus 8 week size. No adnexal masses or tenderness. Clinical Pelvimetry: Pelvimetry clinically assessed as adequate Limited OB ultrasound exam: single intrauterine , positive cardiac activity and crown-rump length 8 wk ASSESSMENT: 28 year old at 7w4d gestational age PLAN: 1) Patient oriented to practice. Discussed nutrition, folic acid supplementation, dietary guidelines, exercise, smoking, alcohol, caffeine, and drug use. Discussed routine OB labs including STD/HIV. Discussed aneuploidy screening options including serum screening and nuchal translucency. Patient declines all aneuploidy screening. Declines NT U/S. Will order dating U/S due to approximate LMP and shorter cycle length. CF carrier screening discussed and declined. 2) History of counseled regarding use of 17 hydroxy progestrone, patient to see Physician next visit and will start injections in second trimester. 3) Reviewed N/V and importance of trying to eat. If nothing to eat or drink in 24hrs, severe nausea/vomiting, or worsening symptoms to call or go to ER. Patient would like to continue with Phenergan suppositories and will add Diclegis. Discussed Reglan pump but patient declines at this time. Discussed diet choices, BRATY diet, bland foods, and eating every 1-2hrs. Discussed Sea bands for motion sickness and lemon/love candies to help with nausea. 4) Follow up in one week for N/V. FMLA paperwork to be filled out, unable to work at this time due to severe N/V. 5) PN labs, CMP, and TSH done today. 6) Not taking PNV due to N/V, recommend taking Folic Acid 1,000mcg if possible. If unable to swallow pill can take gummy PNV. Discussed protection for NTD. Follow up in 1 weeks or sooner landenn. Luz Waller APRN.CNM THYROID STIM HORMONE Collected: 02/12/2018 Status: F Source: [place] (TSH) 6:50 PM [facility] REPOSITORY Order Comment: RESULT(S) PREVIOUSLY REPORTED ON MANUAL REQUISITION DURING DOWNTIME. TYPE CODE TESTS RESULT OUT OF RANGE REFERENCE UNITS LAB L501.9520 0.358-3.74 uIU/mL Low TSH 0.14 Performed By: #### L501.9520 #### [facility] [address] [place], [place], [id number] BASIC METABOLIC Collected: 02/12/2018 Status: F Source: [place] PROFILE (BMP) 6:50 PM [facility] REPOSITORY Order Comment: RESULT(S) PREVIOUSLY REPORTED ON MANUAL REQUISITION DURING DOWNTIME. TYPE CODE TESTS RESULT OUT OF RANGE REFERENCE UNITS LAB L501.0100 74-106 mg/dL Normal GLU 77 Result Comment: Please note revised GLUCOSE reference range effective 2017. LAB L501.1000 7-18 mg/dL Normal BUN 12 LAB L501.1100 0.55-1.02 mg/dL Normal CREAT,SERUM 0.68 Result Comment: The validity of the calculated GFR AND GFRAA in patients over 70 years has not been determined. Clinical correlation is essential. LAB L501.1110 >60 mL/min Normal EST GFR 108 LAB L501.1115 >60 mL/min Normal EST GFR - AA 131 LAB L501.1300 10-20 RATIO Normal BUN/CRE 17.6 LAB L501.2200 8.5-10.1 mg/dL Normal CA 9.2 LAB L501.5300 136-145 mmol/L Normal NA 136 LAB L501.5600 3.5-5.1 mmol/L Normal K 4.0 LAB L501.5900 98-107 mmol/L Normal CL 105 LAB L501.6100 21.0-32.0 mmol/L Low CO2 14.0 LAB L501.6200 5-15 High GAP 17 Performed By: #### L500.2500 #### [facility] [address] [place], [place], [address] Observed: 02/12/2018 Status: F Source: [place] CULTURE, URINE 6:40 PM [facility] REPOSITORY RESULT(S) PREVIOUSLY REPORTED ON MANUAL REQUISITION DURING DOWNTIME. Urine Culture Culture exhibits no growth. Performed By: #### M100.0650 #### [facility] [address] [place], [address] PROGRESS Observed: 2018 Status: COMPLETED Source: [place] 5:33 PM [facility] REPOSITORY HNO ID: [id number] Author: Josette Sykes RN Service: (none) Author Type: (none) Type: Progress Notes Filed: 2018 5:46 PM Note Text: #: 1, Date: 09/29/09, Sex: Female, Weight: 4 lb 7 oz (2.013 kg), GA: 32w2d, Delivery: VAGINAL , Apgar1: 7, Apgar5: 8, Living: Living, Comments: delivery in [facility] [place] #: 2, Date: 09/26/14, Sex: Male, Weight: 5 lb 15 oz (2.693 kg), GA: 34w0d, Delivery: Vaginal, Spontaneous Delivery, Apgar1: 2, Apgar5: 6, Living: Living, Comments: Spontaneous labor, PTL, special care nursery for 34weeks retraction, baby transfered to [facility], EBL 250cc #: 3, Date: 05/2016, Sex: None, Weight: None, GA: 9w0d, Delivery: MISSED AB, Apgar1: None, Apgar5: None, Living: None, Comments: [facility] #: 4, Date: None, Sex: None, Weight: None, GA: None, Delivery: None, Apgar1: None, Apgar5: None, Living: None, Comments: None CNNURSE Observed: 2018 Status: COMPLETED Source: [place] 2:00 PM [facility] REPOSITORY Nurse Visit (WOOB) SHAYE SANCHEZ ([id number]) 1990 F Date Time Provider Department 02/10/18 2:00 PM NURSE CHAKA [facility] WILFRED ABBASI During your visit today, we recorded the following information about you: Last Period 12/23/17 Josette Sykes RN 2018 2:34 PM Signed SEQUENTIAL SCREENINGS The [facility] offers sequential screenings for women who are interested in screenings for chromosomal abnormalities and certain defects during a . The sequential screen combines ultrasound and blood tests to determine the risk of chromosomal abnormalities, including Down's Syndrome (Trisomy 21) and Trisomy 18, as well as open neural tube defects including spina bifida. Ultrasound examination is performed between 11 weeks and 13 weeks gestational age. Blood tests are drawn after the ultrasound and again later in the between 15 and 21 weeks gestational age. Please let your physician know if you are interested in this testing. It will require an appointment with our auto glass technician. This is not an ultrasound performed by a physician in our office during a routine visit. SIGNS AND SYMPTOMS OF LABOR 1. Contractions every 10 minutes or more often 2. Clear, pink, or brownish fluid (water) leaking from vagina 3. Feeling that baby is pushing down, pressure 4. Low, dull backache 5. Cramps that feel like a period 6. Cramps with or without diarrhea If you notice any of the above symptoms, contact our office at [phone] and ask to speak with a nurse. After hours, you can call doctors registry at [phone] OR call [facility] at [phone] and ask to have the doctor precision agriculture technician paged. If you consider this an emergency, dial 9-1-1 or go to your nearest emergency department. Cord-Blood Banking Up until recently, the umbilical cord--along with the blood that remained in it after a baby was born and the cord cut--was simply discarded by the hospital. Then, in the late 1980s, researchers discovered that cord blood possessed unusual properties that made it useful in the treatment of patients with some cancers and other illnesses. While the actual process of collecting cord blood is straightforward, many parents are not even aware that this option now exists, much less familiar with all the issues involved. The case for saving your baby's cord blood The blood running back and forth between your baby and the placenta is full of immature cells called stem cells. Unlike embryonic stem cells, which have the ability to develop into any type of body cell, cord-blood stem cells already are locked into a certain, vital function: making all the different components of the blood, such as platelets, white blood cells, and red blood cells-serving, in effect, like bone marrow. When transfused into a patient whose own blood cells have faulty genetic coding or have been destroyed by chemotherapy or other cancer treatments, the cord-blood cells can implant themselves in the bone marrow and generate legions of new, healthy cells. These days, cord-blood transplants most commonly are used in cancer patients when a donor can't be found for a bone-marrow transplant. The treatment is particularly effective in young patients-the [facility] Cord Blood Bank reports a 70 percent success rate in children, but only 20 to 40 percent in adults. Researchers envision improving those odds and see many future applications as well, such as curing sickle cell disease and other blood-related genetic illnesses. So there is a possibility that your child, or someone else, may need these super-healthy and versatile cells one day. The drawbacks Aside from not knowing about this medical option, the main reason most people do not save their baby's stem cells is cost. In a private blood bank, the initial costs run from $275 to $1,500. Most also charge a yearly storage fee of $50 to $95. The advantage of using a private bank is that your sample is saved for only you to use. An alternative to private banking Public cord-blood zamudio are an alternative. These cost no money to use, but your sample is not specifically saved for you. Another person with a more immediate need may use it. If the time should come that you need stem cells, yours may still be available, or you may use donations from other people without charge. You also can direct your sample to go to a relative with an immediate need if the blood type matches. Anyone else needing to use stem cells from a public bank who has not been a donor must pay for it, sometimes tens of thousands of dollars. Will my family benefit from saving stem cells? Right now, situations in which stem cells would be helpful are quite rare. As mentioned earlier, stem-cell transplants are most commonly used for rare genetic conditions and for some types of cancer, including leukemia and lymphoma. And even with these present uses, many questions remain. In cancer treatment, for example, some researchers are concerned about the wisdom of transplanting back into the child the same cells that already showed a propensity to become malignant. Doctors also aren't sure if the number of cells taken at the time of would be enough to treat a full-grown 16-year-old. It is also not completely clear how active the cells would be after years of being stored. The treatment is so new and rare, we just don't have the data yet to resolve these important issues. What do the experts say? The [place] [employer] encourages philanthropic blood banking in public zamudio, but only for families with a current or potential need. Blood-bank proponents encourage any kind of banking, pointing out that research is getting closer and closer to many diverse, live-saving applications. How do I decide? Each family must weigh the pros and cons for themselves. Some families say that any cost is worth their peace of mind. Others say that in the face of uncertainty about the effectiveness of the treatment, they will use their resources elsewhere. Some choose the middle ground of donating publicly, knowing that their sample might benefit another family, if not themselves. For more information, ask your doctor or nurse, and be sure to check out our article on the technical aspects of cord-blood banking. Technical Aspects of Cord-Blood Banking If you are interested in storing your baby's umbilical-cord blood because of its possible use in emerging medical treatments, you must make arrangements with a blood bank before your child is born. The collection procedure is quite simple: After delivery of the baby, the umbilical cord is clamped and cut in the usual way. The blood that remains in the umbilical-cord vessels is then collected in sterile containers. The blood may be removed from the cord with a large needle or allowed to flow freely, depending on the company's collection system. The containers may look like large test tubes or like the plastic bags used in a blood bank. It does not cause the mother or the baby any pain to collect the blood, and no blood is taken that the baby needs at the moment. The nurse, clinical microbiologist, or physician will then label the samples, check them over with you, and package them for a special pickup arranged with a commercial carrier. When the blood arrives at the blood-bank facility, it is processed and the parents are notified. It is then kept in an advanced storage system for years. How do I know that my sample is safe? Power outages and bankruptcies potentially could threaten any organization, but so far none have been reported. It is to be hoped that the scientists in these zamudio would arrange for safe transfer to another facility if the need arose. YOU MUST MAKE ARRANGEMENTS AHEAD OF TIME! Public cord-blood zamudio--DONATION: [employer] [phone] [facility], [place], [facility] Umbilical Cord Blood Bank, Private cord-blood zamudio--SAVING FOR YOUR OWN USE: [employer], (I think this is the least expensive) [employer] [phone] [employer], (252) [employer] [place] [facility], [phone] Cells, [phone] [place] [facility], Cord Blood Registry, [phone]) [employer], An Internet search may provide you with additional listings. Josette Sykes RN 2018 5:46 PM Signed #: 1, Date: 09/29/09, Sex: Female, Weight: 4 lb 7 oz (2.013 kg), GA: 32w2d, Delivery: VAGINAL , Apgar1: 7, Apgar5: 8, Living: Living, Comments: delivery in [place], PROM #: 2, Date: 09/26/14, Sex: Male, Weight: 5 lb 15 oz (2.693 kg), GA: 34w0d, Delivery: Vaginal, Spontaneous Delivery, Apgar1: 2, Apgar5: 6, Living: Living, Comments: Spontaneous labor, PTL, special care nursery for 34weeks retraction, baby transfered to [facility] 250cc #: 3, Date: 05/2016, Sex: None, Weight: None, GA: 9w0d, Delivery: MISSED AB, Apgar1: None, Apgar5: None, Living: None, Comments: [facility] #: 4, Date: None, Sex: None, Weight: None, GA: None, Delivery: None, Apgar1: None, Apgar5: None, Living: None, Comments: None Referring Provider: SELF [200] Allergies As of Date: 2018 Noted Allergy Reaction PENICILLINS 04/04/2009 Comments: CHILDHOOD REACTION Date Reviewed: 2018 Reviewed by: Josette Sykes RN - Fully Assessed Reason for Visit: Care [86] Cmt: Pre-New OB Primary Visit Diagnosis:Supervision of high risk , antepartum [O09.90] Other Visit Diagnoses:Nausea and vomiting in [O21.9] Nausea and vomiting during [O21.9] History of mitral valve prolapse [Z86.79] History of delivery, currently [O09.219] Order(s):UA DIP B/O [[id number]] Order #: [id number] Problem List As Of Date 2018 Noted Resolved History of delivery, currently *INVALID FOR* More... Vaginal bleeding in [O46.90] INVALID FOR*01/22/2016 More... UTI in [O23.40] INVALID FOR*01/22/2016 More... Nausea and vomiting in [O21.9] INVALID FOR*01/22/2016 More... History of mitral valve prolapse [Z86.79] INVALID FOR* More... Patient requested diagnostic testing [Z01.89] INVALID FOR*01/22/2016 More... 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 Nausea and vomiting in [O21.9] INVALID FOR*03/08/2017 More... MVP (mitral valve prolapse) [I34.1] INVALID FOR* More... UTI (urinary tract infection) in , ant*INVALID FOR*03/08/2017 More... History of delivery, currently *INVALID FOR*03/08/2017 More... History of recent travel [Z78.9] INVALID FOR*03/08/2017 More... BV (bacterial vaginosis) [N76.0, B96.89] INVALID FOR*03/08/2017 Nausea and vomiting during [O21.9] INVALID FOR* More... Other instructions from your clinician: SEQUENTIAL SCREENINGS The [facility] offers sequential screenings for women who are interested in screenings for chromosomal abnormalities and certain defects during a . The sequential screen combines ultrasound and blood tests to determine the risk of chromosomal abnormalities, including Down's Syndrome (Trisomy 21) and Trisomy 18, as well as open neural tube defects including spina bifida. Ultrasound examination is performed between 11 weeks and 13 weeks gestational age. Blood tests are drawn after the ultrasound and again later in the between 15 and 21 weeks gestational age. Please let your physician know if you are interested in this testing. It will require an appointment with our auto glass technician. This is not an ultrasound performed by a physician in our office during a routine visit. SIGNS AND SYMPTOMS OF LABOR 1. Contractions every 10 minutes or more often 2. Clear, pink, or brownish fluid (water) leaking from vagina 3. Feeling that baby is pushing down, pressure 4. Low, dull backache 5. Cramps that feel like a period 6. Cramps with or without diarrhea If you notice any of the above symptoms, contact our office at [phone] and ask to speak with a nurse. After hours, you can call doctors registry at [phone] OR call [facility] at [phone] and ask to have the doctor precision agriculture technician paged. If you consider this an emergency, dial 9-1-1 or go to your nearest emergency department. Cord-Blood Banking Up until recently, the umbilical cord--along with the blood that remained in it after a baby was born and the cord cut--was simply discarded by the hospital. Then, in the late 1980s, researchers discovered that cord blood possessed unusual properties that made it useful in the treatment of patients with some cancers and other illnesses. While the actual process of collecting cord blood is straightforward, many parents are not even aware that this option now exists, much less familiar with all the issues involved. The case for saving your baby's cord blood The blood running back and forth between your baby and the placenta is full of immature cells called stem cells. Unlike embryonic stem cells, which have the ability to develop into any type of body cell, cord-blood stem cells already are locked into a certain, vital function: making all the different components of the blood, such as platelets, white blood cells, and red blood cells-serving, in effect, like bone marrow. When transfused into a patient whose own blood cells have faulty genetic coding or have been destroyed by chemotherapy or other cancer treatments, the cord-blood cells can implant themselves in the bone marrow and generate legions of new, healthy cells. These days, cord-blood transplants most commonly are used in cancer patients when a donor can't be found for a bone-marrow transplant. The treatment is particularly effective in young patients- the [facility] Cord Blood Bank reports a 70 percent success rate in children, but only 20 to 40 percent in adults. Researchers envision improving those odds and see many future applications as well, such as curing sickle cell disease and other blood-related genetic illnesses. So there is a possibility that your child, or someone else, may need these super-healthy and versatile cells one day. The drawbacks Aside from not knowing about this medical option, the main reason most people do not save their baby's stem cells is cost. In a private blood bank, the initial costs run from $275 to $1,500. Most also charge a yearly storage fee of $50 to $95. The advantage of using a private bank is that your sample is saved for only you to use. An alternative to private banking Public cord-blood zamudio are an alternative. These cost no money to use, but your sample is not specifically saved for you. Another person with a more immediate need may use it. If the time should come that you need stem cells, yours may still be available, or you may use donations from other people without charge. You also can direct your sample to go to a relative with an immediate need if the blood type matches. Anyone else needing to use stem cells from a public bank who has not been a donor must pay for it, sometimes tens of thousands of dollars. Will my family benefit from saving stem cells? Right now, situations in which stem cells would be helpful are quite rare. As mentioned earlier, stem-cell transplants are most commonly used for rare genetic conditions and for some types of cancer, including leukemia and lymphoma. And even with these present uses, many questions remain. In cancer treatment, for example, some researchers are concerned about the wisdom of transplanting back into the child the same cells that already showed a propensity to become malignant. Doctors also aren't sure if the number of cells taken at the time of would be enough to treat a full-grown 16-year-old. It is also not completely clear how active the cells would be after years of being stored. The treatment is so new and rare, we just don't have the data yet to resolve these important issues. What do the experts say? The [place] [employer] encourages philanthropic blood banking in public zamudio, but only for families with a current or potential need. Blood-bank proponents encourage any kind of banking, pointing out that research is getting closer and closer to many diverse, live-saving applications. How do I decide? Each family must weigh the pros and cons for themselves. Some families say that any cost is worth their peace of mind. Others say that in the face of uncertainty about the effectiveness of the treatment, they will use their resources elsewhere. Some choose the middle ground of donating publicly, knowing that their sample might benefit another family, if not themselves. For more information, ask your doctor or nurse, and be sure to check out our article on the technical aspects of cord-blood banking. Technical Aspects of Cord-Blood Banking If you are interested in storing your baby's umbilical- cord blood because of its possible use in emerging medical treatments, you must make arrangements with a blood bank before your child is born. The collection procedure is quite simple: After delivery of the baby, the umbilical cord is clamped and cut in the usual way. The blood that remains in the umbilical-cord vessels is then collected in sterile containers. The blood may be removed from the cord with a large needle or allowed to flow freely, depending on the company's collection system. The containers may look like large test tubes or like the plastic bags used in a blood bank. It does not cause the mother or the baby any pain to collect the blood, and no blood is taken that the baby needs at the moment. The nurse, clinical microbiologist, or physician will then label the samples, check them over with you, and package them for a special pickup arranged with a commercial carrier. When the blood arrives at the blood- bank facility, it is processed and the parents are notified. It is then kept in an advanced storage system for years. How do I know that my sample is safe? Power outages and bankruptcies potentially could threaten any organization, but so far none have been reported. It is to be hoped that the scientists in these zamudio would arrange for safe transfer to another facility if the need arose. YOU MUST MAKE ARRANGEMENTS AHEAD OF TIME! Public cord-blood zamudio--DONATION: [facility] [phone] [facility], [place], [facility] Umbilical Cord Blood Bank, Private cord-blood zamudio--SAVING FOR YOUR OWN USE: [employer], (I think this is the least expensive) [employer] [phone] [facility], (158) [facility] [place] Cord Blood [facility], [phone] Cells, [phone] [place] [facility], Cord Blood Registry, ([phone]) CORDBLOOD [employer], An Internet search may provide you with additional listings. Disposition: Return in 4 days (on 02/14/2018) for New OB with Luz Waller. Follow-up and Disposition History Recorded Letter Text Dear Shaye Sanchez: How to activate your [facility] Ludia Account 1. Visit the Ludia Signup page at [email or web address] 2. Identify yourself using your one-time use activation code: [email or web address] 3. Follow the on-screen prompts to choose your own secure username and password The following information will be necessary to access your account for the first time: Information needed for sign-up: Your custom activation code used one-time only for the initial account set-up. Your date of The last 4 digits of your social security number What to do next: Fill in the requested information on the Identify Yourself Form at [email or web address] , click Next. Create your login and password, choose a Ludia ID and password that will be easy for you to use, but impossible for anyone else to guess. Pick a security question that will assist you in the event you forget your password the next time you log-on. If you have difficulty activating your account, please call our Ludia helpline at [phone] or toll free at . We hope you enjoy using Ludia! Kindest Regards, [facility] Ludia Team Encounter Status:Closed by JOSETTE SYKES RN on 02/10/18 GC/CHLAMYDIA AMPLIF Collected: 01/19/2018 Status: F Source: [place] 3:45 PM [facility] REPOSITORY TYPE CODE TESTS RESULT OUT OF REFERENCE UNITS RANGE LAB GCCTSR GC/Chlam Amp Cerv[facility] Source LAB GCAMPL GC Negative Amplification for Neisseria gonorrhoeae by amplification. LAB CLAMPL Chlamydia Negative Amplif for Chlamydia trachomatis by amplification. Performed By: #### GCCT #### [facility] [place] [facility] [place] [address] Observed: 01/18/2018 Status: F Source: [place] BACT/CAND VAG GRM ST 3:45 PM [facility] [place] REPOSITORY Smear Result - BACTERIAL VAGINOSIS RESULT: Stain results consistent with normal vaginal marion. Rare Polymorphonuclear leukocytes Few Mononuclear cells Moderate Epithelial cells PENG SPECIES RESULT: No Yeast observed Performed By: #### BVCNSM #### [facility] [place] [facility] [address] [place] [address] Observed: 01/18/2018 Status: F Source: [place] TRICHOMONAS PREP 3:45 PM [facility] [place] REPOSITORY Smear Result - Negative for Trichomonas vaginalis antigen This test was developed and its performance characteristics determined by [facility]'s [facility] [place] ([facility]). It has not been cleared or approved by the FDA. [facility] is regulated under CLIA as qualified to perform high-complexity testing. This test is used for clinical purposes. It should not be regarded as investigational or for research. Performed By: #### TRICHO #### [facility] [place] [facility] [address] [place] [address] PROGRESS Observed: 01/18/2018 Status: COMPLETED Source: [place] 2:52 PM [facility] REPOSITORY HNO ID: [id number] Author: Luz Waller Service: (none) Author Type: Mail Forwarding System Markup Clerk Type: Progress Notes Filed: 01/18/2018 3:43 PM Note Text: Dictating Machine Transcriber offered: Patient declines. Shaye Sanchez is a 27 year old female who presents for problem visit for MINESH. HPI: IMNESH today for chlamydia. Was treated on 07/09/17 and 10/13/17. Partner was not treated in July. No longer with previous partner. New partner in last two months. New partner had STD testing prior to having intercourse with patient. No complaints today. PAST MEDICAL HISTORY Diagnosis Date - MVP (mitral valve prolapse) PAST SURGICAL HISTORY Procedure Laterality Date - BREAST AUGMENTATION W/PROSTHETIC IMPLANT 11/2012 - COLP CERVIX /VAGINA W/BX OF CERVIX 12/2014 NIC 1 - REMOVAL OF TONSILS,<12 Y/O Tonsillectomy and adnoids FAMILY HISTORY Problem Relation Age of Onset - Hypertension Mother - Cancer Maternal Grandmother LUNG CANCER - Diabetes Maternal Grandfather - Heart Maternal Grandfather - Cancer Paternal Grandmother - Heart Paternal Grandfather Social History Marital status: Single Spouse name: Years of education: 12 Number of children: 2 Occupational History Occupation Employer Comment [employer] Social History Main Topics Smoking status: Never Smoker Smokeless tobacco: Never Used Alcohol use: No Drug use: No Sexual activity: Not Currently Partners with: Male control/protection: None Comment: ok No current outpatient prescriptions on file. No current facility-administered medications for this visit. Allergies As of Date: 01/18/2018 Allergen Noted Reaction PENICILLINS 04/04/2009 Fully Assessed 01/18/2018 REVIEW OF SYSTEMS Abdomen: No bloating, early satiety, indigestion, or increased flatulence. No abdominal pain, nausea, vomiting, diarrhea, or constipation. Bladder: No dysuria, gross hematuria, urinary frequency, urinary urgency, or incontinence. Breast: No breast lumps, nipple d/c, overlying skin changes, redness or skin retraction. Expanded ROS: N/A Allergies and current medication updated:Yes EXAM: BP 96/64 Wt 109 lb (49.4kg) LMP 12/23/2017 GENERAL: pleasant, female in no apparent distress HEENT: Normocephalic and atraumatic NECK: Supple and full range of motion DERMATOLOGY: Normal and without lesions CHEST: Clear to auscultation Normal inspiratory effort Regular rate and rhythm No murmurs, clicks, rubs or gallops ABDOMEN: soft, non-tender and no masses PELVIC: external genitalia normal, normal Bartholin's glands, urethra, Kempner's glands, no vulvar lesions, no cervical lesions, good vaginal support, normal appearing perineal body and perianal region. Small amount of thick yellow vaginal discharge, no odor. Cervix friable. NEURO: alert and oriented x3,exam grossly non-focal EXTREMITIES: normal ASSESSMENT AND PLAN: 1. History of chlamydia infection - ICD9: V12.09, ICD10: Z86.19 (primary diagnosis) -GC/CT done today 2. Vaginal discharge - ICD9: 623.5, ICD10: N89.8 -BV, yeast, trich tested today due to new partner and vaginal discharge. 3. control counseling - ICD9: V25.09, ICD10: Z30.09 -Reviewed different control options. Patient not using anything at this time and does not desire . Information and handout Provided for different control options. 4. High risk sexual behavior - ICD9: V69.2, ICD10: Z72.51 -Reviewed importance of wearing condom to reduce risk of STD transmission RTC for annual exam ULYSSES CarmonaOV Observed: 01/18/2018 Status: COMPLETED Source: [place] 2:45 PM [facility] REPOSIT[facility] Office Visit (WOOB) SHAYE SANCHEZ ([id number]) 1990 F Date Time Provider Department 01/18/18 2:45 PM LUZ WALLER (ANGY) WOOB During your visit today, we recorded the following information about you: Blood pressure Weight Last Period 96/64 49.4 kg 12/23/17 Luz Waller APRN.CNM 01/18/2018 3:43 PM Signed Dictating Machine Transcriber offered: Patient declines. Shaye Sanchez is a 27 year old female who presents for problem visit for MINESH. HPI: MINESH today for chlamydia. Was treated on 07/09/17 and 2/7/18. Partner was not treated in July. No longer with previous partner. New partner in last two months. New partner had STD testing prior to having intercourse with patient. No complaints today. PAST MEDICAL HISTORY Diagnosis Date - MVP (mitral valve prolapse) PAST SURGICAL HISTORY Procedure Laterality Date - BREAST AUGMENTATION W/PROSTHETIC IMPLANT 11/2012 - COLP CERVIX /VAGINA W/BX OF CERVIX 12/2014 NIC 1 - REMOVAL OF TONSILS,<12 Y/O Tonsillectomy and adnoids FAMILY HISTORY Problem Relation Age of Onset - Hypertension Mother - Cancer Maternal Grandmother LUNG CANCER - Diabetes Maternal Grandfather - Heart Maternal Grandfather - Cancer Paternal Grandmother - Heart Paternal Grandfather Social History Marital status: Single Spouse name: Years of education: 12 Number of children: 2 Occupational History Occupation Employer Comment [employer]. Social History Main Topics Smoking status: Never Smoker Smokeless tobacco: Never Used Alcohol use: No Drug use: No Sexual activity: Not Currently Partners with: Male control/protection: None Comment: ok No current outpatient prescriptions on file. No current facility-administered medications for this visit. Allergies As of Date: 01/18/2018 Allergen Noted Reaction PENICILLINS 04/04/2009 Fully Assessed 01/18/2018 REVIEW OF SYSTEMS Abdomen: No bloating, early satiety, indigestion, or increased flatulence. No abdominal pain, nausea, vomiting, diarrhea, or constipation. Bladder: No dysuria, gross hematuria, urinary frequency, urinary urgency, or incontinence. Breast: No breast lumps, nipple d/c, overlying skin changes, redness or skin retraction. Expanded ROS: N/A Allergies and current medication updated:Yes EXAM: BP 96/64 Wt 109 lb (49.4kg) LMP 12/23/2017 GENERAL: pleasant, female in no apparent distress HEENT: Normocephalic and atraumatic NECK: Supple and full range of motion DERMATOLOGY: Normal and without lesions CHEST: Clear to auscultation Normal inspiratory effort Regular rate and rhythm No murmurs, clicks, rubs or gallops ABDOMEN: soft, non-tender and no masses PELVIC: external genitalia normal, normal Bartholin's glands, urethra, Kempner's glands, no vulvar lesions, no cervical lesions, good vaginal support, normal appearing perineal body and perianal region. Small amount of thick yellow vaginal discharge, no odor. Cervix friable. NEURO: alert and oriented x3,exam grossly non-focal EXTREMITIES: normal ASSESSMENT AND PLAN: 1. History of chlamydia infection - ICD9: V12.09, ICD10: Z86.19 (primary diagnosis) -GC/CT done today 2. Vaginal discharge - ICD9: 623.5, ICD10: N89.8 -BV, yeast, trich tested today due to new partner and vaginal discharge. 3. control counseling - ICD9: V25.09, ICD10: Z30.09 -Reviewed different control options. Patient not using anything at this time and does not desire . Information and handout Provided for different control options. 4. High risk sexual behavior - ICD9: V69.2, ICD10: Z72.51 -Reviewed importance of wearing condom to reduce risk of STD transmission RTC for annual exam ULYSSES Carmona APRN.CNM 01/18/2018 4:17 PM Signed Addended by: LUZ WALLER on: 01/18/2018 04:17 PM Modules accepted: Orders Referring Provider: SELF [[id number]] Allergies As of Date: 01/18/2018 Noted Allergy Reaction PENICILLINS 04/04/2009 Comments: CHILDHOOD REACTION Date Reviewed: 01/18/2018 Reviewed by: Luz (Angy) Sridhar - Fully Assessed Reason for Visit: Follow Up [171] Primary Visit Diagnosis:History of chlamydia infection [Z86.19] Other Visit Diagnoses:Vaginal discharge [N89.8] control counseling [Z30.09] High risk sexual behavior [Z72.51] Order(s):BACT/PENG VAG GRAM STAIN [SQBVCNSM] Order #: [id number] FUTURE TRICHOMONAS PREP [SQTRICHO] Order #: [id number] GC/CHLAMYDIA DNA DET [SQGCCAMP] Order #: [id number] Problem List As Of Date 01/18/2018 Noted Resolved History of delivery, currently *INVALID FOR*01/22/2016 More... Vaginal bleeding in [O46.90] INVALID FOR*01/22/2016 More... UTI in [O23.40] INVALID FOR*01/22/2016 More... Nausea and vomiting in [O21.9] INVALID FOR*01/22/2016 More... History of mitral valve prolapse [Z86.79] INVALID FOR* More... Patient requested diagnostic testing [Z01.89] INVALID FOR*01/22/2016 More... 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 Nausea and vomiting in [O21.9] INVALID FOR*03/08/2017 More... MVP (mitral valve prolapse) [I34.1] INVALID FOR* More... UTI (urinary tract infection) in , ant*INVALID FOR*03/08/2017 More... History of delivery, currently *INVALID FOR*03/08/2017 More... History of recent travel [Z78.9] INVALID FOR*03/08/2017 More... BV (bacterial vaginosis) [N76.0, B96.89] INVALID FOR*03/08/2017 Disposition: Return for Annual exam . Follow-up and Disposition History Recorded Encounter Status:Closed by LUZ WALLER on 01/18/18 GC/CHLAMYDIA AMPLIF Collected: 10/13/2017 Status: F Source: [place] 3:39 PM [facility] [place] REPOSITORY TYPE CODE TESTS RESULT OUT OF RANGE REFERENCE UNITS LAB GCCTSR GC/Chlam Amp Source Cervix LAB GCAMPL GC Amplification Negative for Neisseria gonorrhoeae by amplification. LAB CLAMPL Chlamydia Abnormal Amplif Positive for Alert Chlamydia trachomatis by amplification. Result Comment: In low prevalence populations, the likelihood of a false positive may be higher than a true positive. Retesting by another method may be appropriate for patients who lack risk factors or clinical signs and symptoms consistent with infection. Performed By: #### GCCT #### [facility] [address] [place], [place] [address] PROGRESS Observed: 10/13/2017 Status: COMPLETED Source: [place] 2:37 PM [facility] [place] REPOSITORY HNO ID: [id number] Author: Luz Waller Service: (none) Author Type: Mail Forwarding System Markup Clerk Type: Progress Notes Filed: 10/13/2017 3:57 PM Note Text: Shaye Sanchez is a 27 year old female who presents for problem visit For MINESH HPI: MINESH for positive chlamydia on 07/09/17. Current partner x 4 months. Completed treatment for chlamydia, as did partner. No complaints. Using condoms intermittently. PAST MEDICAL HISTORY Diagnosis Date - MVP (mitral valve prolapse) PAST SURGICAL HISTORY Procedure Laterality Date - BREAST AUGMENTATION W/PROSTHETIC IMPLANT 11/2012 - COLP CERVIX /VAGINA W/BX OF CERVIX 12/2014 NIC 1 - REMOVAL OF TONSILS,<12 Y/O Tonsillectomy and adnoids FAMILY HISTORY Problem Relation Age of Onset - Hypertension Mother - Cancer Maternal Grandmother LUNG CANCER - Diabetes Maternal Grandfather - Heart Maternal Grandfather - Cancer Paternal Grandmother - Heart Paternal Grandfather Social History Marital status: Single Spouse name: Years of education: 12 Number of children: 2 Occupational History Occupation Employer Comment [employer] Social History Main Topics Smoking status: Never Smoker Smokeless status: Never Used Alcohol use: No Drug use: No Sexual activity: Not Currently Partners with: Male control/protection: None Comment: ok No current outpatient prescriptions on file. No current facility-administered medications for this visit. Allergies As of Date: 10/13/2017 Allergen Noted Reaction PENICILLINS 04/04/2009 Fully Assessed 10/13/2017 REVIEW OF SYSTEMS Abdomen: No bloating, early satiety, indigestion, or increased flatulence. No abdominal pain, nausea, vomiting, diarrhea, or constipation. Bladder: No dysuria, gross hematuria, urinary frequency, urinary urgency, or incontinence. Breast: No breast lumps, nipple d/c, overlying skin changes, redness or skin retraction. Expanded ROS: N/A Allergies and current medication updated:Yes EXAM: BP 98/58 Wt 106 lb (48.1kg) LMP 10/05/2017 GENERAL: pleasant, female in no apparent distress HEENT: Normocephalic and atraumatic NECK: Supple and full range of motion DERMATOLOGY: Normal and without lesions PELVIC: external genitalia normal, normal Bartholin's glands, urethra, Kempner's glands, no vulvar lesions, no cervical lesions, good vaginal support, physiologic discharge present, normal appearing perineal body and perianal region BIMANUAL: uterus normal size, shape and consistency, no adnexal masses and non-tender NEURO: alert and oriented x3,exam grossly non-focal EXTREMITIES: normal ASSESSMENT AND PLAN: ASSESSMENT/PLAN: 1. Screen for STD (sexually transmitted disease) - ICD9: V74.5, ICD10: Z11.3 (primary diagnosis) -GC/CT done today 2. Chlamydial infection - ICD9: 079.98, ICD10: A74.9 3. Control Counseling - Reviewed control options. Patient declines control at this time. Denies desire for conception. Recommended consistent condom use and to take multivitamin with folic acid. ANGY Carmona CNM ALLERGIES ALLERGIES DATE TYPE / CODE NAME / CODE REACTION SEVERITY SOURCE 03/01/2018 Drug Penicillins/[id number] Unknown Unknown [place] Allergy/[phone](RXNORM) [facility] [id number]([facility] ED CT) Repository 04/04/2009 Drug PENICILLINS [facility] Class/[address] [place] [address]([facility] Repository CT) ENCOUNTERS ENCOUNTERS ADMIT/DISCHARGE ACCOUNT ADMITTING ENCOUNTER LOCATION SOURCE NUMBER CLASS 08/18/2018/08/20/20 [id number] [facility] Inpatient [address] ing:WPRoom: Repository UK113Tpy: 1 08/18/2018/08/22/20 [id number] Ambulatory [address] [place] Repository 08/10/2018/08/11/20 [id number] Ambulatory [address] [place] Repository 08/08/[id number] [facility] ing:LABSPEC Repository 08/08/2018/08/09/20 [id number] Ambulatory [address] [place] Repository 07/26/2018/07/27/20 [id number] Ambulatory [address] [place] Repository 07/15/2018/07/18/20 [id number] Ambulatory [address] [place] [place] [facility] 07/14/2018/07/15/20 [id number] Ambulatory [address] [facility] [place] [facility] 06/27/2018/06/27/20 [id number] Ambulatory [address] [facility] [place] [facility] 06/27/2018/06/28/20 [id number] Ambulatory [address] [facility] [place] [facility] 06/07/2018/06/09/20 [id number] Ambulatory [address] [facility] [place] [facility] 05/26/2018/05/27/20 [id number] Ambulatory [address] [place] [facility] 05/12/2018/09/07 [id number] Ambulatory [place] [facility] [place] [facility] 05/11/2018/05/14/20 [id number] Ambulatory [address] [facility] [place] [facility] 04/27/2018/04/28/20 [id number] Ambulatory [address] [facility] [place] [facility] 04/13/2018/04/13/20 [id number] Ambulatory [address] [facility] [place] [facility] 04/13/2018/04/14/20 [id number] Ambulatory [address] [facility] [place] [facility] 03/16/2018/03/16/20 [id number] Ambulatory [address] [facility] [place] [facility] 03/16/2018/03/16/20 [id number] Ambulatory [address] [facility] [place] [facility] 03/16/2018/03/25/20 [id number] Ambulatory [address] [place] [facility] 03/08/2018/03/10/20 [id number] Ambulatory [address] Repository 03/01/2018/03/01/20 [id number] Emergency [place] ing:ED Repository 02/21/2018/02/23/20 [id number] Ambulatory [address] Repository 02/14/2018 [id number] Ambulatory [facility] [place] [facility] 02/14/2018/02/15/20 [id number] Ambulatory [address] Repository 02/12/2018/02/14/20 [id number] [place] [address] ing:VF7Fijb: Repository [id number]: 1 02/10/2018/02/11/20 [id number] Emergency [place] ing:ED Repository 02/10/2018/02/16/20 [id number] Ambulatory [address] [facility] [place] [facility] 01/18/2018/01/21/20 [id number] Ambulatory [address] [place] [facility] 10/13/2017/10/14/19 [id number] Ambulatory [address] Repository PAYERS PAYERS ENCOUNTER GUARANTOR PAYER SUBSCRIBER SOURCE 08/18/2018 SHAYE Jackson Primary SHAYE Sinha [id number] SR [facility] [place]: [address] Number: [id number] [facility] [address]Duv: [id number] Repository Date:5701-04-52[address] () [id number] [place] [address] [id number]: 08/18/2018 Secondary NOT GIVENUNK [place] Insurance:SELF PAY [facility] Number: Effective Repository Date:2018-08-18 08/08/2018 SHAYE Jackson Primary SHAYE Sinha [id number] SR Insurance:ANTHEMPolic [place]: Community [address] [place] [address], y Number: [id number] [facility] [address]Zhb: [id number] Repository Date:2078-38-40TD [address] () [id number] [place] [address] 934[address]AU: 08/08/2018 Secondary NOT GIVENUNK [place] Insurance:SELF PAY [facility] Number: Effective Repository Date:2018-08-08 03/01/2018 SHAYE Jackson Primary SHAYE Sinha [id number] SR Insurance:ANTHEMPolic [place]: [address], y Number: [id number] [facility]iance [facility] Hospital [address]Isj: [id number] Repository Date:9532-53-08HL [address] () [id number], [place] [address]SH: 03/01/2018 Secondary NOT GIVENUNK [place] Insurance:SELF PAY [facility] Number: Effective Repository Date:2018-03-01 02/12/2018 SHAYE Jackson Primary SHAYE Sinha [id number] SR Insurance:ANTHEMPolic [place]OB: [address], y Number: [id number] [facility]iance Indian Hospital [address]Ypr: [id number] Repository Date:5776-30-26HL [address] () [id number] [address]EL: 02/12/2018 Secondary NOT GIVENUNK [place] Insurance:SELF PAY [facility] Number: Effective Repository Date:2018-02-12 2018 SHAYE Jackson Primary SHAYE Sinha [id number] SR Insurance:ANTHEMPolic [place]GE[place]INDOB: [address], Number: [id number] [facility]iance [facility] Hospital [address]Vfm: [id number] Repository Date:6982-20-37[id number], [place] [address]OV: 2018 Secondary NOT GIVENPRUDENCIO Sinha Insurance:SELF PAY [facility] Number: Effective Repository Date:2018
== END ==
PROVIDERS: Referring Provider Advanced Practice Midwife; Visit Provider Advanced Practice Midwife
DX: O09.219 Supervision of pregnancy with history of pre-term labor, unspecified trimester (principal); Z3A.00 Weeks of gestation of pregnancy not specified
CPT/HCPCS: 82731

== ENCOUNTER 2018-08-18 15:30 | Inpatient (IN) | payer BC, SELFPAY ==
[2018-08-18 11:48] VITALS: BMI 24.5
[2018-08-18] MEDS: Betamethasone/Betamethasone 30 MG/5 ML Vial 12 MG IM (12:06)
--- NOTE | 2018-08-18 13:37 | PCM.HP.OB ---
History Date of Admission: 08/18/18 Final [place]: 09/22/18 Final [place] Source: US <20 weeks Gestational age: 35 Weeks and 0 Days History of this : This is a 28 year-old, G [], P [], at weeks gestational age. Surgical History: Surgical History (Last Updated 08/18/18 @ 13:39 by Esthela Ybarra) History of breast surgery Z98.890 History of tonsillectomy Z90.89 Allergies Penicillins Allergy (Verified 03/01/18 07:08) Unknown Home Medications: Home Medications Hydroxyprogesterone Caproate [[place]] 250 mg IM Q7D 08/18/18 Smoking Status: Never smoker Heart Tracin with mod variability, accels TOCO Analysis: Q 4-5 min History Past Pregnancies: Past Pregnancies h/o 32 & 34wk deliverie Delivery Date Name GA/Weeks Outcome Route Weight Gender Labor Length Anesthesia Delivery Location Provider FOB Labs: See [facility] Patient getting weekly Henrietta injections Physical Exam General: Alert, Oriented x3 Abdomen: Soft, Non Tender, Non-Distended, Gravid Estimated gestational size: Appropriate for gestational size Presentation: Cephalic Cervix Dilation (cm): 3 Station: -2 Effacement (%): 80 Assessment/Plan All Active Problems Threatened in early (Acute) UTI (urinary tract infection) during (Acute) 28yo female @ 35 weeks with threatened PTL Admit for observation FWValerio - GISELLA #1 given, EFM reassuring Rapid GBS sent IVF & admission labs Routine care
--- NOTE | 2018-08-18 13:42 | HP.PCM_ITS ---
History Date of Admission: 08/18/18 Final [place]: 09/22/18 Final [place] Source: US <20 weeks Gestational age: 35 Weeks and 0 Days History of this : This is a 28 year-old, G [], P [], at weeks gestational age. Surgical History: Surgical History (Last Updated 08/18/18 @ 13:39 by Esthela Ybarra) History of breast surgery Z98.890 History of tonsillectomy Z90.89 Allergies Penicillins Allergy (Verified 03/01/18 07:08) Unknown Home Medications: Home Medications Hydroxyprogesterone Caproate [[place]] 250 mg IM Q7D 08/18/18 Smoking Status: Never smoker Heart Tracin with mod variability, accels TOCO Analysis: Q 4-5 min History Past Pregnancies: Past Pregnancies h/o 32 & 34wk deliverie Delivery Date Name GA/Weeks Outcome Route Weight Gender Labor Length Anesthesia Delivery Location Provider FOB Labs: See [facility] Patient getting weekly Henrietta injections Physical Exam General: Alert, Oriented x3 Abdomen: Soft, Non Tender, Non-Distended, Gravid Estimated gestational size: Appropriate for gestational size Presentation: Cephalic Cervix Dilation (cm): 3 Station: -2 Effacement (%): 80 Assessment/Plan All Active Problems Threatened in early (Acute) UTI (urinary tract infection) during (Acute) 28yo female @ 35 weeks with threatened PTL Admit for observation FWValerio - GISELLA #1 given, EFM reassuring Rapid GBS sent IVF & admission labs Routine care
[2018-08-18] MEDS: Lactated Ringers 1,000 ML 50 ML IV ×2 (14:00→15:40)
[2018-08-18] MEDS: Lactated Ringers 1,000 ML 999 ML IV (14:01)
[2018-08-18 14:37] LABS: Hematocrit 33.9 % (37-47); Hemoglobin 11.1 g/dl (12.0-15.0); Mean Corp Hgb Conc 32.7 g/gl (32-36); Mean Corpuscular Hgb 28.1 pg (27.0-32.0); Mean Corpuscular Volume 85.8 fL (81-99); Mean Platelet Vol. 11.5 fl (6.2-12.0); Platelet Count 193 K/mm3 (150-450); RBC Distribution Width CV 12.7 % (11.6-14.6); RBC Distribution Width SD 39.1 fl (35.1-43.9); Red Blood Count 3.95 M/mm3 (4.2-5.4); White Blood Count 9.8 K/mm3 (4.4-11.0)
[2018-08-18 14:38] LABS: Scan Indicated on CBC? Y/N NO
[2018-08-18 15:13] LABS: Group B Strep DNA By PCR Negative (Negative); Internal Control PASS; Probe Check PASS; Specimen Processing Control PASS
[2018-08-18] MEDS: fentaNYL-bupivacaine (epidural) 100 ML BAG EPIDURAL (16:10)
[2018-08-18] MEDS: Oxytocin 30 units/NS 500 ml 30 UNITS/500 ML IV.SOLN 334 UNITS IV (20:10)
--- NOTE | 2018-08-18 20:39 | PCM.OB.VAG ---
Vaginal Delivery Maternal Presentation: Active Labor Amniotic Membrane Rupture Type: Spontaneous Amniotic Fluid Description: Bloody Final VALENTINA: 09/22/18 Gestational age: 35 Weeks and 0 Days Date of Procedure: 08/18/18 Pre-Operative Diagnosis: (1) labor (2) Suspected placental abruption Post-Operative Diagnosis: (1) labor (2) Placental abruption Surgery/ Procedure Performed: Spontaneous Vaginal Delivery Type of Anesthesia: Epidural Description of Procedure: Patient prepped & draped when c/c/+2. She pushed to deliver head. Shoulders & body easily followed. Infant placed on maternal abdomen & 3VC clamped and cut in delayed fashion. Placenta delivered quickly with minimal traction. Good uterine tone obtained. Presentation: LUIS ANTONIO Placental Delivery Description: Spontaneous Placenta Disposition: [facility] Cord Vessel Description: 3 Vessels Cord Entanglement: None Estimated Blood Loss: 200ml Infant A gender: Female (1 minute): 8 (5 minute): 9 Episiotomy Description: None Laceration: None Medications given after delivery: IV Pitocin Complications: None
[2018-08-18] MEDS: Oxytocin 30 units/NS 500 ml 30 UNITS/500 ML IV.SOLN 167 UNITS IV (20:40)
[2018-08-18 23:31] VITALS: BP 114/71; PULSE 80; RESP 16; TEMP 37.7
[2018-08-19 04:24] VITALS: BP 117/73; PULSE 69; RESP 16; TEMP 37.4; O2SAT 97
--- NOTE | 2018-08-19 08:11 | PCM.PN.OB ---
Subjective: Patient doing well. Tolerating regular diet without nausea or vomiting. Ambulating and voiding without difficulty. Pain controlled. No CP, SOB, leg pain. - Physical Exam General: Alert, No apparent distress HEENT: Atraumatic Lungs: - - No increased resp effort Abdomen: Soft, - - ATTP, FF Extremities: No Calf Tenderness Skin: No rashes Neurological: Neuro grossly intact Psych/Mental Status: Normal Affect, Appropriate Vital Signs Temp Pulse Resp BP Pulse Ox 99.3 F H 69 16 117/73 97 08/19/18 04:24 08/19/18 04:24 08/19/18 04:24 08/19/18 04:24 08/19/18 04:24 Oxygen Delivery Method Room Air Weight: 149 lb 7.574 oz Body Mass Index (BMI) 24.5 Intake and Output for Last 24 Hours 08/17/18 08/18/18 08/19/18 23:59 23:59 23:59 Intake Total 2448 / 2448 Output Total 300 / 300 700 / 700 Balance 2148 / 2148 -700 / -700 Laboratory Tests Past 24 Hrs 08/18/18 08/18/18 08/18/18 13:35 14:00 14:00 WBC 9.8 RBC 3.95 L Hgb 11.1 L Hct 33.9 L MCV 85.8 MCH 28.1 MCHC 32.7 RDW 12.7 RDW Differential 39.1 Plt Count 193 MPV 11.5 Group B Strep DNA Negative Specimen Comment Not Reportable Blood Type A POSITIVE Antibody Screen NEGATIVE Medical Necessity - Tobacco Use Smoking Status: Never smoker Assessment/Plan All Active Problems (Last Updated 08/18/18 @ 13:39 by Esthela Ybarra) UTI (urinary tract infection) during (Acute) Threatened in early (Acute) day #1 - Doing well - Routine care
--- NOTE | 2018-08-19 08:24 | DCINST_ITS ---
Discharge Diet: No Restrictions Discharge Activity: Return to Normal Activity, May not drive while taking narcotic pain medications., May Shower May resume sexual activity in: 4-6 weeks Additional Activity Instructions:: Nothing in the vagina for 4-6 weeks. You may return to work/school in 6 weeks. Call your doctor if your incision/area has: Continuous Slow Oozing, Sudden Increased Bleeding, Increased Pain/ Swelling, Increased Redness, Foul Smelling Discharge Additional Instructions: If you experience any of the following, contact your healthcare provider. * Bleeding that soaks a pad every hour for 2 hours * Fever 100.4 or higher * Unrelieved incision or abdominal pain * Swelling, redness, discharge or bleeding from your incision or episiotomy site * Your incision begins to separate * Problems urinating (including inability to urinate or burning while urinating). * Visual changes * Severe headache * Flu-like symptoms * Pain or redness in one of both of your breasts * Pain, warmth, tenderness or swelling in your legs, especially the calf area * Frequent nausea and vomiting * Symptoms of depression or anxiety If you experience any of the following, call 911 or go to the nearest Emergency Room. * Chest pain * Problems breathing * Seizure activity * Partial or complete paralysis of a body part, slurred speech, weakness or drooping of the face, or a sudden inability to walk or hold your balance Allergies/Adverse Reactions: Allergies Penicillins Allergy (Verified 03/01/18 07:08) Unknown Medications to take at Discharge Ibuprofen Liquid [Motrin Liquid] 600 mg PO Q6H PRN PRN 7 Days udc 08/19/18 The following prescriptions were given: Ibuprofen Liquid [Motrin Liquid] 600 mg PO Q6H PRN PRN 7 Days udc PRN Reason: Mild Pain (1-310) When: Call to make an appointment with your doctor in 6 weeks. If you had elevated Blood Pressure or 4th degree laceration you will need to be seen in 2 weeks. Primary Care Physician: Adonis Mccormack MD [Primary Care Provider] - Test Results: Test results from this visit will be discussed in further detail at your follow- up appointment, if applicable.
[2018-08-19 08:57] VITALS: BP 125/82; PULSE 72; RESP 18; TEMP 36.9; O2SAT 96
[2018-08-19] MEDS: Ibuprofen 100 MG/5 ML UDC 600 MG PO (09:25)
[2018-08-19 12:00] VITALS: BP 113/68; PULSE 81; RESP 16; TEMP 36.4; O2SAT 96
[2018-08-19] MEDS: Acetaminophen 650 MG/20 ML UDC 1000 MG PO (13:28)
[2018-08-19 14:00] VITALS: BP 113/68; PULSE 93; RESP 16; TEMP 36.4; O2SAT 96
[2018-08-19 18:00] VITALS: BP 123/76; PULSE 93; RESP 16; TEMP 36.8; O2SAT 97
[2018-08-19 22:00] VITALS: BP 118/70; PULSE 89; RESP 17; TEMP 36.6
--- NOTE | 2018-08-20 08:00 | PCM.PN.OB ---
Subjective: pt seen at bedside, doing well. pt reports good pain control. lochia mild. breast feeding without concerns. Voiding w/o difficulty. - Physical Exam General: Alert, Oriented x3 Abdomen: Soft, Non Tender, Non-Distended, - - fundus firm Extremities: No Calf Tenderness Vital Signs Temp Pulse Resp BP Pulse Ox 97.9 F 89 17 118/70 97 08/19/18 22:00 08/19/18 22:00 08/19/18 22:00 08/19/18 22:00 08/19/18 18:00 Oxygen Delivery Method Room Air Weight: 67.8 kg Body Mass Index (BMI) 24.5 Intake and Output for Last 24 Hours 08/18/18 08/19/18 08/20/18 23:59 23:59 23:59 Intake Total 2448 / 2448 Output Total 300 / 300 700 / 700 Balance 2148 / 2148 -700 / -700 Medical Necessity - Tobacco Use Smoking Status: Never smoker Assessment/Plan All Active Problems (Last Updated 08/18/18 @ 13:39 by Esthela Ybarra) UTI (urinary tract infection) during (Acute) Threatened in early (Acute) PPD#2, doing well routine care pain mgmt dc home or to hotel if stays for elevated bili levels
[2018-08-20 08:40] VITALS: BP 112/69; PULSE 75; RESP 16; TEMP 36.9; O2SAT 94
[2018-08-20] MEDS: Ibuprofen 100 MG/5 ML UDC 600 MG PO (09:30)
[2018-08-20 14:00] VITALS: BP 117/76; PULSE 70; RESP 16; TEMP 36.7; O2SAT 98
[2018-08-20 19:01] VITALS: BP 116/73; PULSE 80; RESP 16; TEMP 36.7; O2SAT 98
--- OUTSIDE RECORDS SUMMARY | 2018-10-04 06:58 | XMS RPT_ITS ---
:1990 Author Organization OHIP Care Team Providers Name Role Phone LUZ WALLER (CNM) Attending Unavailable VELASQUEZ WALLERSSICA (CNM) Referring Unavailable VELASQUEZ WALLERSSICA (CNM) Attending Unavailable VELASQUEZ WALLERSSICA (CNM) Attending Unavailable SRIDHAR LUZ (CNM) Referring Unavailable SRIDHAR LUZ (CNM) Attending Unavailable VELASQUEZ WALLERSSICA (CNM) Attending Unavailable VELASQUEZ WALLERSSICA (CNM) Referring Unavailable SRIDHAR LUZ (CNM) Referring Unavailable DAYNA KAMINSKI Attending Unavailable ASHISH GREGG Attending Unavailable ASHISH GREGG Referring Unavailable NEYHART RAMIREZ, ASHISH Attending Unavailable NEYHART RAMIREZ, ASHISH Referring Unavailable NEYHART RAMIREZ, ASHISH Referring Unavailable KAMINSKI, DAYNA A Attending Unavailable NEYHART RAMIREZ, ASHISH Referring Unavailable LUZ WALLER (CNM) Attending Unavailable KAMINSKI, DAYNA A Attending Unavailable NEYHART RAMIREZ, ASHISH Referring Unavailable KAMINSKI, DAYNA A Attending Unavailable NEYHART RAMIREZ, ASHISH Referring Unavailable LUZ WALLER (CNM) Attending Unavailable NEYHART RAMIREZ, ASHISH Attending Unavailable NEYHART RAMIREZ, ASHISH Referring Unavailable PEYTON VILLAFANA (CNM) Attending Unavailable NEYHART RAMIREZ, ASHISH Attending Unavailable NEYHART RAMIREZ, ASHISH Attending Unavailable PEYTON VILLAFANA (CNM) Attending Unavailable LUZ WALLER (CNM) Attending Unavailable NEYRYLIET RAMIREZ, ASHISH Attending Unavailable Irma Little Attending Unavailable Irma Little Referring Unavailable Adonis Mccormack Primary Care Unavailable Irma Little Admitting Unavailable Adonis Mccormack Primary Care Unavailable Nettie Spann Admitting Unavailable Nettie Spann Attending Unavailable NAT CESPEDES Attending Unavailable ANT CESPEDES Referring Unavailable Adonis Mccormack Primary Care Unavailable Adonis Mccormack Primary Care Unavailable Susan Arguelles Attending Unavailable Peyton Villafana Attending Unavailable Adonis Mccormack Primary Care Unavailable Peyton Villafana Referring Unavailable PROBLEMS PROBLEMS DATE TYPE CONDITION / CODE ATTENDING STATUS SOURCE 08/10/2018 Unknown O09.219 - Peyton Villafana Active [place] Supervision of [facility] with Hospital history of Repository pre-term labor, unspecified trimester / O09.219(ICD-10) 06/27/2018 Active Encounter for NA Active [facility] supervision of [facility] other normal Repository , second trimester / Z34.82(ICD-10) 06/27/2018 Active 27 weeks gestation NA Active [facility] / [facility] Z3A.27(ICD-10) Repository 03/16/2018 Active Anemia NA Active [facility] complicating [facility] , first Repository trimester / O99.011(ICD-10) 03/16/2018 Active 12 weeks gestation NA Active [facility] / [facility] Z3A.12(ICD-10) Repository 03/16/2018 Active Encounter for YAMILEX, Active [facility] DAYNA A Main [facility] screening for Repository nuchal translucency / Z36.82(ICD-10) 02/21/2018 Active 8 weeks gestation LUZ WALLER Active [facility] of / ([facility]) [facility] Z3A.08(ICD-10) Repository 02/14/2018 Active Supervision of NA Active [facility] high risk [facility] , Repository unspecified, first trimester / O09.91(ICD-10) 06/02/2018 Unknown O21.0 - Mild Zana, Active [place] hyperemesis Nettie [facility] gravidarum / Hospital O21.0(ICD-10) Repository 01/18/2018 Active Unknown / LUZ WALLER Active [facility] UNK(Unknown) ([facility]) [facility] Repository PROCEDURES PROCEDURES No Procedure Records FoundRESULTS RESULTS DISCHARGE INSTRUCTION Observed: 08/19/2018 Status: F Source: [place] 8:24 AM [facility] REPOSITORY [facility] Medical Records Department [address] [place] [address] Instructions for Home/Discharge Instructions 08/19/18822 MR#: [id number] Acct: [id number] Name: SHAYE QUEEN Rep #: [id number] : 1990 28 From: Ashish Ramirez MD [...] OPERATIVE REPORT Observed: 08/18/2018 Status: F Source: [place] 8:58 PM [facility] REPOSITORY [facility] Medical Records Department [address] [place] [address] Operative Report 08/18/182038 MR#: [id number] Acct: [id number] Name: SHAYE QUEEN Rep #: [id number] : 1990 28 From: Irma Little PCP: Adonis Mccormack MD Status: ADM IN Location: [id number] Vaginal Delivery Maternal Presentation: Active Labor Amniotic [...] F Source: [place] NO DIFF 2:00 PM [facility] REPOSITORY TYPE CODE TESTS RESULT OUT OF [...] 11.5 Performed By: #### L100.0500, B101.7450 #### [facility] [address] [place], [address] TYPE AND SCREEN Collected: 08/18/2018 Status: F Source: [place] 2:00 PM [facility] REPOSITORY Order Comment: Reason for Type AND Screen/Red Cells: ROUTINE TYPE CODE TESTS RESULT OUT OF RANGE REFERENCE UNITS LAB B10.0800 A Normal BLOOD TYPE GEL POSITIVE LAB B100.4000 Normal Antibody NEGATIVE Screen Performed By: #### L100.0500, B101.7450 #### [facility] [address] [facility] [place], [address] HISTORY AND PHYSICAL Observed: 08/18/2018 Status: F Source: [place] EXAM 1:46 PM [facility] REPOSITORY [facility] Medical Records Department [address] [place] [address] History and Physical 08/18/18 1337 MR#: [id number] Acct: [id number] Name: SHAYE QUEEN Rep #: [id number] : 1990 28 From: Irma Little PCP: Adonis Mccormack MD Status: REG CLI Y Location: [place] [address] History Date of Admission: 08/18/18 Final VALENTINA: 09/22/18 Final VALENTINA Source: US <20 weeks Gestational age: 35 Weeks and 0 Days History of this : This is a 28 year-old, G [], P [], at weeks gestational age. Surgical History: Surgical History (Last Updated 08/18/18 @ 13:39 by Irma iLttle) History of breast surgery Z98.890 History of tonsillectomy Z90.89 Allergies Penicillins Allergy (Verified 03/01/18 07:08) Unknown Home Medications: Home Medications Hydroxyprogesterone Caproate [Mckenna] 250 mg IM Q7D 08/18/18 Smoking Status: Never smoker Heart Tracin with mod variability, accels TOCO Analysis: Q 4-5 min History Past Pregnancies: Past Pregnancies h/o 32 AND 34wk deliverie Delivery Name GA/Weeks Outcome Route WeiInfant GeLabor LenAnesthesiDelivery Provider FOB Date ght nder [facility] a Location Labs: See [facility] H [...] F Source: [place] BY PCR 1:35 PM [facility] REPOSITORY Order Comment: Has pt arrived? Y Comments: rapid gbs TYPE CODE TESTS RESULT OUT OF RANGE REFERENCE UNITS LAB L8200.0100 Negative Normal GBS TEST Negative RESULT Performed By: #### L8200.0000 #### [facility] [address] [place], [place], [address] Observed: 08/18/2018 Status: F Source: [place] CULTURE, GROUP B 12:00 AM [facility] STREPTOCOCCUS REPOSITORY RICARDO Culture Group B Beta Streptococcus is not isolated. Performed By: #### M100.1800 #### [facility] [address] [facility] [address] [place], [place], [address] PROGRESS Observed: 08/10/2018 Status: COMPLETED Source: [place] 9:58 AM [facility] REPOSITORY HNO ID: [id number] Author: Sangeetha Mccormack Ma Service: (none) Author [...] severely ill: Yes Patient denies history of Guillain-[place] Syndrome (a severe paralytic illness): Yes Tdap Adacel injection was given without incident. See immunizations for details of immunizations administered today. VIS sheet provided: Yes Provider Luz Waller CNM was present in office at time of injection. Sangeetha Mccormack Ma FIBRONECTIN Collected: 08/08/2018 Status: F Source: [place] 11:30 AM [facility] REPOSITORY Order Comment: CALL RESULTS TO: [phone] TYPE CODE TESTS RESULT OUT OF RANGE REFERENCE UNITS LAB L205.0100 Normal fFN Negative Performed By: #### L205.0000 #### [facility] [address] [place], [address] CNPN Observed: 08/08/2018 Status: COMPLETED Source: [place] 12:00 AM [facility] REPOSITORY Telephone (WOOB) SHAYE QUEEN ([id number]) 1990 F Date Time Provider Department 08/08/18 [...] 08/08/18 PROGRESS Observed: 07/15/2018 Status: COMPLETED Source: [place] 10:10 AM [facility] REPOSITORY HNO ID: [id number] Author: Ashish Ramirez Service: (none) Author Type: Physician Type: Progress Notes Filed: 07/15/2018 11:17 AM Note Text: NST SUMMARY PROVIDER ASSESSMENT AND INTERPRETATION Shaye Sanchez is a 28 year old female, , who is at 30w1d with an VALENTINA of 09/22/2018, by Ultrasound dating method. Indications for NST: Other: h/o PT deliveries- new onset back pain Baseline: 140 Variability: Moderate Accelerations: Present 15 X 15 Decelerations: None Contractions: TOCO: None Interpretation: Category I and Reactive SIGNATURE: Ashish Donald MD Observed: 07/14/2018 Status: F Source: [place] URINE CULTURE 11:00 [facility] REPOSITORY Sp. Request/Comment: - Specimen received in preservative Culture Result - <10,000 CFU/ml Normal urogenital marion Performed By: #### URCUL #### [facility] [address], [place] [address] CBC AND DIFFERENTIAL Collected: 06/27/2018 Status: F Source: [place] 10:30 AM [facility] REPOSITORY TYPE CODE TESTS RESULT OUT [...] k/uL Abs Lymph 1.59 LAB AMONO % Upson% 5.4 LAB AAMONO <0.87 k/uL Abs Upson 0.45 LAB AEOS % Eosin% 0.7 LAB AAEOS <0.46 k/uL Abs Eosin 0.06 LAB ABASO % Baso% 0.2 LAB AABASO <0.11 k/uL Abs Baso <0.03 LAB AUNRBC 0 /100 WBC NRBCs 0.0 LAB ABNRBC <0.01 k/uL Absolute nRBC <0.01 LAB DTYP DTYPE Auto Diff Performed By: #### CBCDIF #### [facility] [address] [place], [place] [address] 50G, 1HR GEST. Collected: 06/27/2018 Status: F Source: [place] GSCN 10:30 AM [facility] REPOSITORY TYPE CODE TESTS RESULT OUT OF REFERENCE UNITS RANGE LAB GLUP 74-134 mg/dL Glucose 114 Screen, Preg Result Comment: [place] [employer] of [employer] and Gynec[employer] ([place]) guidelines state a gestational diabetes mellitus positive screen is made, in women not previously diagnosed with overt diabetes, when the 1 hr plasma glucose level is equal to or above 140 mg/dL. The [facility] [place] recommends a 135 mg/dL cutoff. Performed By: #### GLTGST #### [facility] [address], [place] [address] PROGRESS Observed: 06/07/2018 Status: COMPLETED Source: [place] 3:35 PM [facility] [place] REPOSITORY HNO ID: [id number] Author: Sangeetha Mccormack Ma Service: (none) Author Type: (none) Type: Progress Notes Filed: 06/08/2018 12:09 PM Note Text: 28 year old female here for INACTIVATED INFLUENZA VACCINE. 6815-1593 Season Patient is identified by name and date of : Yes [] CONTRAINDICATIONS color enhanced section Age less than 6 months? No Allergy to eggs, chicken, chicken feathers, or chicken dander? No Allergy to thimerosal (a preservative) or formaldehyde, gelatin? No History of severe reaction to any vaccine component or a previous dose of influenza vaccination? No History of Guillain-[place] Syndrome within 6 weeks after a previous [...] sheet given? Yes See immunization activity in [facility] for details of immunizations adminstered today. Patient age: [age] year old For The 9777-9637 Flu Season 6-35 months old: Fluzone 0.25 [...] time. PROGRESS Observed: 05/26/2018 Status: COMPLETED Source: [place] 10:53 AM [facility] REPOSITORY HNO ID: [id number] Author: Dayna Kaminski Service: (none) Author Type: [...] P PROGRESS Observed: 05/12/2018 Status: COMPLETED Source: [place] 9:28 AM [facility] REPOSITORY HNO ID: [id number] Author: Dayna Kaminski Service: (none) Author Type: [...] P PROGRESS Observed: 04/27/2018 Status: COMPLETED Source: [place] 11:42 AM [facility] REPOSITORY HNO ID: [id number] Author: Dayna Kaminski Service: (none) Author Type: [...] Collected: 04/13/2018 Status: F Source: [facility] 10:12 AM [facility] REPOSITORY TYPE CODE TESTS RESULT OUT [...] Dn Snyd LAB SE2STS SE2 Scr Rsk <1:11010 Trsmy 13 LAB SE2STR SE2 Scr Rsk <1:28633 Trsmy18 LAB SE2SON SE2 Scr Rsk 1:7000 ONTD LAB SE2RS View Seq Scrn results in Second Trim Scanned Documents link when available. LAB SEQLRV SEQ Staff Reviewed by Review Pardeep Sifuentes MD, PhD ([id number]) Performed By: #### SEQL2 #### [facility] [address] [place] [address] CNPN Observed: 04/07/2018 Status: COMPLETED Source: [place] 12:00 AM [facility] REPOSITORY Telephone (HIOB) SHAYE SANCHEZ ([id number]) 1990 F Date Time Provider Department 04/07/18 DEVELOPMENT ASSISTANT MANE During your visit today, we recorded the following information about you: Mary Ellen Hendricks RN 04/07/2018 11:38 AM Signed Call placed to patient to check on status of Saunemin receipt and start. LMTCB. Mary Ellen Hendricks RN 04/07/2018 1:07 PM Signed Patient advises she has yet to hear from [facility] regarding shipping. Call to [facility] with patient on line. Ready to ship, $25 co-pay. Patient recently acquired a secondary [facility] insurance plan. Patient gave policy number to [...] Fully Assessed Reason for Visit: Care Coordination [6553] Cmt: Saunemin update Prescriptions as of 04/07/2018 Sig: PROMETHAZINE [...] 03/16/2018 Status: COMPLETED Source: [place] 11:59 AM [facility] REPOSITORY O ID: [id number] Author: Dayna Kaminski Service: (none) Author Type: [...] SCRN FIRST Collected: 03/16/2018 Status: F Source: [place] [facility] PATIENTS ONLY 11:29 AM [facility] REPOSITORY TYPE CODE TESTS RESULT OUT OF REFERENCE UNITS RANGE LAB SE1PAP MoM 1.23 SE1 MALENA A LAB SE1HCG MoM 0.77 SE1 hCG LAB SE1INT Final result pending second Final trimester SE1 result pending sample Interp second trimester sample LAB SE1SDN SE1 Scrn 1:5400 Rsk Dn Synd LAB SE1ADN 1:530 SE1 Age Rsk Dn Synd LAB SE1STR SE1 Scr <1:87268 Rsk Trsmy18 LAB SE1ATR SE1 Age 1:2000 Rsk Trsmy18 LAB SE1RS View Seq Scrn results in First Trim Scanned Documents link when available. LAB SEQLRV SEQ Staff Reviewed by Review Pardeep Sifuentes MD, PhD ([id number]) Performed By: #### SEQL1 #### [facility] [address] [place], [place] [address] Observed: 03/08/2018 Status: F Source: [place] URINE CULTURE 11:15 AM [facility] REPOSITORY Sp. Request/Comment: - Specimen received in preservative Culture Result - <10,000 CFU/ml Normal urogenital marion Performed By: #### URCUL #### [facility] [address] [place] [address] CNPN Observed: 03/03/2018 Status: COMPLETED Source: [place] 12:00 [facility] REPOSITORY Telephone (WOOB) TYRELMARGESHAYE WANG ([id number]) 1990 F Date Time Provider Department 03/03/18 IRMA LITTLE During your visit today, we recorded the following information about you: Demetrice High RN 03/03/2018 11:37 AM Signed Patient 10w0d calling to notify office that she was seen at [facility] ER on 03/01 for abdominal pain. Per [...] Signed Please check for urine culture at [facility] If not collected there please get a urine culture She can stop antibiotics until we have the results MD Giovani Pearson LPN 03/03/2018 3:00 PM Signed [facility] is going to run a urine culture [...] EMERGENCY DEPARTMENT Observed: 03/01/2018 Status: F Source: [place] SUMMARY 9:23 AM [facility] REPOSITORY [facility] Medical Records Department [address] [place] [address] Emergency Department Summary 03/01/18 0736 MR#: [id number] Acct: [id number] Name: SHAYE SANCHEZ Rep #: [id number] : 1990 28 From: Susan Arguelles MD [...] She is advised to follow-up with her SERVICE ADVISOR. Advised return to ED if worsening complaints Disposition: Discharge home Impression: Abdominal pain resolved; , UTI This note was generated with Reply.ioation software. It may contain incorrect words, spelling, and punctuation that were not noted in review of the chart prior to signing ED Disposition - Plan for ED Patient: Chief Complaint: Abd Pain Instructions: Care for a Healthy Baby, ED UTI Cystitis Female Prescriptions: Cephalexin Suspension [Keflex Suspension] 500 mg PO Q12 #7 days Referrals: Luz Waller CNM [Certified Nurse National Van Owner Operator] - Adonis Mccormack MD [Primary Care Provider] - What to do if you have Problems For any increased pain, shortness of breath, bleeding, nausea or vomiting, chest pain, or any unexpected problems, contact your Primary Care Provider. Call [facility] ([phone]) or report to the closest Emergency Room. Call 911 if necessary. 03/01/18922 <Electronically signed by Susan Arguelles MD> Date Susan Arguelles MD Cosigner Signature (If Indicated): Date CC: Adonis Mccormack MD DISCHARGE INSTRUCTION Observed: 03/01/2018 Status: F Source: [place] 9:19 AM [facility] REPOSITORY [facility] Medical Records Department [address] [place] [address] Discharge Instruction 03/01/18914 MR#: [id number] Acct: [id number] Name: SHAYE SANCHEZ Rep #: [id number] : 1990 28 From: Susan Arguelles MD PCP: Adonis Mccormack MD Status: REG ER ED Disposition - Plan for ED Patient: Chief Complaint: Abd Pain Instructions: Care for a Healthy Baby, ED UTI Cystitis Female Prescriptions: Cephalexin Suspension [Keflex Suspension] 500 mg PO Q12 #7 days Referrals: Adonis Mccormack MD [Primary Care Provider] - Luz Waller CNM [Certified Nurse National Van Owner Operator] - What to do if you have Problems For any increased pain, shortness of breath, bleeding, nausea or vomiting, chest pain, or any unexpected problems, contact your Primary Care Provider. Call [facility] ([phone]) or report to the closest Emergency Room. Call 911 if necessary. 03/01/18 0919 <Electronically signed by Susan Arguelles MD> Date Susan Arguelles MD Cosigner Signature (If Indicated): Date CC: Adonis Mccormack MD URINALYSIS, COMPLETE Collected: 03/01/2018 Status: F Source: [place] 7:35 AM [facility] REPOSITORY Order Comment: How was Urine Obtained? MANAGER PRODUCTION TO SPECIFY TYPE CODE TESTS RESULT OUT [...] MUCUS, URINE Performed By: #### L400.0001 #### [facility] [address] [place], [place], [address] TRANSVAGINAL W/PREG US Observed: 03/01/2018 Status: F Source: [place] 7:34 AM [facility] REPOSITORY [facility] [place] [address] Transvaginal w/Preg US MR#: [id number] Acct: [id number] Name: SHAYE SANCHEZ Rep #: [id number] : 1990 F 28 From: Shahab Abbott MD PCP: Adonis Mccormack MD Status: REG ER Study: Transvaginal w/Preg US Date of Exam: 03/01/18 Exam# [id number] Ordering Dr: Susan Arguelles MD STUDY: FIRST [...] 2 days. The estimated date of delivery (VALENTIAN) by US is September 25, 2018. The [...] Shahab Abbott MD at 8:41 EDT Tel [phone], Service support , CC: Susan Arguelles MD; Adonis Mccormack MD Cvicu Nurse: Signed Observed: 02/28/2018 Status: F Source: [place] CULTURE, URINE 12:00 AM [facility] REPOSITORY THIS IS FROM WHEN PT WAS IN THE ER ON 03/01/18 THEY WANT A CULTURE PLEASE ADD IF POSSIBLE IF NOT THIS CANCEL THIS TEST. Urine Culture ORGANISM 1: Mixed Gram Positive Organisms [place] Count 1000-10,000 MIX CULTURE Mixed contaminants. Submit a new specimen if indicated. Performed By: #### M100.0650 #### [facility] [address] [place] [address]. [place], [address] DOWNTIME REPORT Observed: 02/23/2018 Status: F Source: [place] 2:17 PM [facility] Medical Records Department [facility] [place] [address] Downtime Report MR#: [id number] Acct: [id number] Name: SHAYE SANCHEZ Rep #: [id number] : 1990 28 From: Walker Pop MD PCP: Adonis Mccormack MD Status: DEP ER This patient was seen during an EMR downtime February 07, 2018 - February 14, 2018. This patient may have a combination of paper and electronic documentation or all paper documentation. All documentation is viewable within the e-chart portion of exsulin for each patient visit. DOWNTIME REPORT Observed: 02/23/2018 Status: F Source: [place] 1:25 PM [facility] REPOSITORY [facility] Medical Records Department [address] [facility] [place] [address] Downtime Report MR#: [id number] Acct: [id number] Name: SHAYE SANCHEZ Rep #: [id number] : 1990 28 From: Walker Pop MD PCP: Adonis Mccormack MD Status: DIS BENI This patient was seen during an EMR downtime February 07, 2018 - February 14, 2018. This patient may have a combination of paper and electronic documentation or all paper documentation. All documentation is viewable within the e-chart portion of exsulin for each patient visit. TOXICOLOGY SCREEN,UR Collected: 02/14/2018 Status: F Source: [place] 2:45 PM [facility] [place] REPOSITORY TYPE CODE TESTS RESULT OUT OF [...] on the same specimen through Client Services ([phone]) if contacted within 48 hours of initial testing. [1]Substance Abuse and Mental Health Services Administration (2012). Clinical Drug Testing in Primary Care Technical Assistance Publication Series 32. Department of Health and Human Services, [place], p.10. These tests were developed and their performance characteristics determined by [facility]'s [facility] [place] ( [facility]). They have not been cleared or a pproved by the FDA. [facility] is regulated under CLIA as qualified to perform high complexity testing. These tests are used for clinical purposes. They should not be regarded as investigational or for research. Performed By: #### UTOX2 #### [facility] [address], [place] [id number] CBC Collected: 02/14/2018 Status: F Source: [place] 2:04 [facility] REPOSITORY TYPE CODE TESTS RESULT [...] CMP, TSH, SYPHGX, RUBIGG, HBSAG, HIV12C #### [facility] [address] [place], [place] [address] COMP METABOLIC PANEL Collected: 02/14/2018 Status: F Source: [place] 2:04 [facility] REPOSITORY TYPE CODE TESTS RESULT OUT OF REFERENCE UNITS RANGE LAB TP 6.3-8.0 g/dL Protein, High Total 8.3 LAB ALB 3.9-4.9 g/dL Albumin 4.6 LAB CA 8.5-10.2 mg/dL Calcium, Total 9.2 LAB TBIL 0.2-1.3 mg/dL Bilirubin, Total 1.3 LAB ALKP 32-117 U/L Alkaline Phosphatase 70 LAB AST 13-35 U/L AST 27 LAB GLU 74-99 mg/dL Glucose 84 Result Comment: The [place] Diabetes Association (ADA) provides guidance for cutoff [...] Standards of Medical Care in Diabetes 2016, [place] Diabetes Association. Diabetes Care. 2016.39(Suppl 1). LAB [...] CMP, TSH, SYPHGX, RUBIGG, HBSAG, HIV12C #### [facility] [address] [place], [place] [address] TSH Collected: 02/14/2018 Status: F Source: [place] 2:04 PM [facility] [place] REPOSITORY TYPE CODE TESTS RESULT OUT OF [...] Clinical Practice Guideline. J Clin Endocrinol Metab, 2012:97:6748-3005. 2. [place] BLANKENSHIP. Overview of thyroid disease in . UpToDate. 2016. Accessed on February 21, 2016. Performed By: #### CBC, CMP, TSH, SYPHGX, RUBIGG, HBSAG, HIV12C #### [facility] [address] [place] [address] SYPHILIS IGG WITH Collected: 02/14/2018 Status: F Source: [facility] 2:04 PM [facility] REPOSITORY TYPE CODE TESTS RESULT OUT [...] CMP, TSH, SYPHGX, RUBIGG, HBSAG, HIV12C #### [facility] nWay [address] [place] [address] RUBELLA IGG ANTIBODY Collected: 02/14/2018 Status: F Source: [place] 2:04 PM [facility] REPOSITORY TYPE CODE TESTS RESULT OUT [...] CMP, TSH, SYPHGX, RUBIGG, HBSAG, HIV12C #### [place] [phone] HEPATITIS B SURF. AG Collected: 02/14/2018 Status: F Source: [place] 2:[address] [place] [address] REPOSITORY TYPE CODE TESTS RESULT OUT OF REFERENCE UNITS RANGE LAB HBSAG Negative Hepatitis B Negative Surf. Ag Performed By: #### CBC, CMP, TSH, SYPHGX, RUBIGG, HBSAG, HIV12C #### [place] [phone] HIV 12 COMBO (AG/AB) Collected: 02/14/2018 Status: F Source: [place] 2:[address] [place] [address] REPOSITORY TYPE CODE TESTS RESULT OUT OF REFERENCE UNITS RANGE LAB HVAGAB Non Reactive HIV Non Reactive 12 Ag/Ab Result Comment: (NOTE) HIV Information: [place] Rev. Code 3701.243(E): This information has been [...] CMP, TSH, SYPHGX, RUBIGG, HBSAG, HIV12C #### [place] [phone] TYPE AND SCR,PRENATL Collected: 02/14/2018 Status: F Source: [place] 2:[address] [place] [address] REPOSITORY TYPE CODE TESTS RESULT OUT OF REFERENCE UNITS RANGE LAB %ABR A ABO/RH(D) POSITIVE LAB % Antibody NEG Screen Performed By: #### TSPN #### [address] [place], [place] [address] GC/CHLAMYDIA AMPLIF Collected: 02/14/2018 Status: F Source: [place] 2:00 PM [facility] REPOSITORY TYPE CODE TESTS RESULT OUT OF REFERENCE UNITS RANGE LAB GCCTSR GC/Chlam Amp Cervix Source LAB GCAMPL GC Negative Amplification for Neisseria gonorrhoeae by amplification. LAB CLAMPL Chlamydia Negative Amplif for Chlamydia trachomatis by amplification. Performed By: #### GCCT #### [address] [address] Observed: 02/14/2018 Status: F Source: [place] URINE CULTURE 2:00 PM [facility] REPOSITORY Sp. 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 INITIAL OB ASSESSMENT OB [...] acid: No, unable to take pills. Occupation: [employer] heritage: No Would refuse blood transfusion if medically necessary: No BMI 16.14 kg/(m2) Patient BMI over 30? 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 TYPE CODE TESTS RESULT OUT OF RANGE REFERENCE UNITS LAB L501.9520 0.358-3.74 uIU/mL Low TSH 0.14 Performed By: #### L501.9520 #### [facility] [address] [place], [place], [id number] BASIC METABOLIC Collected: 02/12/2018 Status: F Source: [place] PROFILE (BMP) 6:50 PM [facility] REPOSITORY Order Comment: RESULT(S) PREVIOUSLY REPORTED ON [...] GAP 17 Performed By: #### L500.2500 #### [facility] [address] [place], [place], [address] Observed: 02/12/2018 Status: F Source: [place] CULTURE, URINE 6:40 PM [facility] REPOSITORY RESULT(S) PREVIOUSLY REPORTED ON MANUAL REQUISITION DURING DOWNTIME. Urine Culture Culture exhibits no growth. Performed By: #### M100.0650 #### [facility] [address] [place], [address] PROGRESS Observed: 2018 Status: COMPLETED Source: [place] 5:33 PM [facility] REPOSITORY HNO ID: [id number] Author: Josette Sykes RN Service: (none) Author Type: (none) Type: Progress Notes Filed: 2018 5:46 PM Note Text: #: 1, Date: 09/29/09, Sex: Female, Weight: 4 lb 7 oz (2.013 kg), GA: 32w2d, Delivery: VAGINAL , Apgar1: 7, Apgar5: 8, Living: Living, Comments: delivery in [facility] #: 2, Date: 09/26/14, Sex: Male, Weight: 5 lb 15 oz (2.693 kg), GA: 34w0d, Delivery: Vaginal, Spontaneous Delivery, Apgar1: 2, Apgar5: 6, Living: Living, Comments: Spontaneous labor, PTL, special care nursery for 34weeks retraction, baby transfered to [facility], EBL 250cc #: 3, Date: 05/2016, Sex: None, Weight: None, GA: 9w0d, Delivery: MISSED AB, Apgar1: None, Apgar5: None, Living: None, Comments: [facility] #: 4, Date: None, Sex: None, Weight: None, GA: None, Delivery: None, Apgar1: None, Apgar5: None, Living: None, Comments: None CNNURSE Observed: 2018 Status: COMPLETED Source: [place] 2:00 PM [facility] REPOSITORY Nurse Visit (WOOB) SHAYE SANCHEZ ([id number]) 1990 F Date Time Provider Department 02/10/18 2:00 PM NURSE CHAKA [facility] During your visit today, we recorded the following information about you: Last Period 12/23/17 Josette Sykes RN 2018 2:34 PM Signed SEQUENTIAL SCREENINGS The [facility] offers sequential screenings for women who are [...] It will require an appointment with our critical power install technician. This is not an ultrasound performed [...] the above symptoms, contact our office at [phone] and ask to speak with a nurse. After hours, you can call doctors registry at [phone] OR call [facility] at [phone] and ask to have the doctor concert or lecture hall manager paged. If you consider this an emergency, [...] treatment is particularly effective in young patients-the [facility] Cord Blood Bank reports a 70 percent [...] issues. What do the experts say? The [place] [employer] encourages philanthropic blood banking [...] baby needs at the moment. The nurse, director clinical data, or physician will then label the samples, [...] AHEAD OF TIME! Public cord-blood zamudio--DONATION: [employer] [phone] [facility], [place], Operated By [facility]'s Placental Blood Program, [facility] Umbilical Cord Blood Bank, Private cord-blood zamudio--SAVING FOR YOUR OWN USE: [employer], (I think this is the least expensive) [employer] [phone] [employer], ([phone]) [employer] [place] Cord Blood Bank, [phone] Cells, [phone] [place] [employer], Cord Blood Registry, ([phone]) CORDBLOOD [employer], An Internet search may provide you with additional listings. Josette Sykes RN 2018 5:46 PM Signed #: 1, Date: 09/29/09, Sex: Female, Weight: 4 lb 7 oz (2.013 kg), GA: 32w2d, Delivery: VAGINAL , Apgar1: 7, Apgar5: 8, Living: Living, Comments: delivery in [place], PROM #: 2, Date: 09/26/14, Sex: Male, Weight: 5 lb 15 oz (2.693 kg), GA: 34w0d, Delivery: Vaginal, Spontaneous Delivery, Apgar1: 2, Apgar5: 6, Living: Living, Comments: Spontaneous labor, PTL, special care nursery for 34weeks retraction, baby transfered to [facility] EB 250cc #: 3, Date: 05/2016, Sex: None, Weight: None, GA: 9w0d, Delivery: MISSED AB, Apgar1: None, Apgar5: None, Living: None, Comments: [facility] #: 4, Date: None, Sex: None, Weight: [...] of delivery, currently [O09.219] Order(s):UA DIP B/O [9632831] Order #: [id number] Problem List As Of Date 2018 Noted [...] instructions from your clinician: SEQUENTIAL SCREENINGS The [facility] offers sequential screenings for women who are [...] It will require an appointment with our critical power install technician. This is not an ultrasound performed [...] the above symptoms, contact our office at [phone] and ask to speak with a nurse. After hours, you can call doctors registry at [phone] OR call [facility] at [phone] and ask to have the doctor concert or lecture hall manager paged. If you consider this an emergency, [...] is particularly effective in young patients- the [facility] Cord Blood Bank reports a 70 percent [...] issues. What do the experts say? The [place] [employer] encourages philanthropic blood banking [...] baby needs at the moment. The nurse, director clinical data, or physician will then label the samples, [...] AHEAD OF TIME! Public cord-blood zamudio--DONATION: [employer] [phone] [facility], [place], Operated By [facility] Placental Blood Program, [facility] Umbilical Cord Blood Bank, Private cord-blood zamudio--SAVING FOR YOUR OWN USE: [employer], (I think this is the least expensive) [employer] [phone] [employer], (862) [employer] [place] Cord Blood Bank, [phone] 700-CORD Cells, [phone] [place] [employer], Cord Blood Registry, (861) CORDBLOOD [employer], An Internet search may provide you with additional listings. Disposition: Return in 4 days (on 02/14/2018) for New OB with Luz Waller. Follow-up and Disposition History Recorded Letter Text Dear Shaye Sanchez: How to activate your [facility] tok tok tok Account 1. Visit the tok tok tok Signup page at [email or web address] 2. Identify yourself using your one-time use activation code: [email or web address] 3. Follow the on-screen prompts to choose [...] information on the Identify Yourself Form at [email or web address] , click Next. Create your login and password, choose a tok tok tok ID and password that will be easy for you to use, but impossible for anyone else to guess. Pick a security question that will assist you in the event you forget your password the next time you log-on. If you have difficulty activating your account, please call our tok tok tok helpline at [phone] or toll free at . We hope you enjoy using tok tok tok! Kindest Regards, [facility] tok tok tok Team Encounter Status:Closed by JOSETTE SYKES RN on 02/10/18 GC/CHLAMYDIA AMPLIF Collected: 01/19/2018 Status: F Source: [place] 3:45 PM [facility] REPOSITORY TYPE CODE TESTS RESULT OUT OF REFERENCE UNITS RANGE LAB GCCTSR GC/Chlam Amp Cervix Source LAB GCAMPL GC Negative Amplification for Neisseria gonorrhoeae by amplification. LAB CLAMPL Chlamydia Negative Amplif for Chlamydia trachomatis by amplification. Performed By: #### GCCT #### [facility] [address] [place] [place] [address] Observed: 01/18/2018 Status: F Source: [place] BACT/CAND VAG GRM ST 3:45 PM [facility] [place] REPOSITORY Smear Result - BACTERIAL VAGINOSIS RESULT: Stain results consistent with normal vaginal marion. Rare Polymorphonuclear leukocytes Few Mononuclear cells Moderate Epithelial cells PENG SPECIES RESULT: No Yeast observed Performed By: #### BVCNSM #### [facility] nWay [address] [place] [address] Observed: 01/18/2018 Status: F Source: [place] TRICHOMONAS PREP 3:45 PM [facility] [place] REPOSITORY Smear Result - Negative for Trichomonas vaginalis antigen This test was developed and its performance characteristics determined by [facility]'s Joseph Makenzie [facility] Pathology and Laboratory Medicine [place] ([facility]). It has not been cleared or approved by the FDA. [facility] is regulated under CLIA as qualified to perform high-complexity testing. This test is used for clinical purposes. It should not be regarded as investigational or for research. 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 Shaye Sanchez is a [...] children: 2 Occupational History Occupation Employer Comment [employer]. Social History Main Topics Smoking status: Never [...] external genitalia normal, normal Bartholin's glands, urethra, Orem's glands, no vulvar lesions, no cervical lesions, [...] ULYSSES CarmonaOV Observed: 01/18/2018 Status: COMPLETED Source: [place] 2:45 PM [facility] REPOSITORY Office Visit (WOOB) SHAYE SANCHEZ ([id number]) 1990 F Date Time Provider Department 01/18/18 2:45 PM LUZ WALLER (ANGY) WOOB During your visit today, we recorded the following information about you: Blood pressure Weight Last Period 96/64 49.4 kg 12/23/17 Luz Waller APRN.CNM 01/18/2018 3:43 PM Signed 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 Social History Main Topics Smoking status: Never [...] external genitalia normal, normal Bartholin's glands, urethra, Orem's glands, no vulvar lesions, no cervical lesions, [...] Order(s):BACT/PENG VAG GRAM STAIN [SQBVCNSM] Order #: [id number] FUTURE TRICHOMONAS PREP [SQTRICHO] Order #: [id number] GC/CHLAMYDIA DNA DET [SQGCCAMP] Order #: [id number] Problem List As Of Date 01/18/2018 Noted [...] GC/CHLAMYDIA AMPLIF Collected: 10/13/2017 Status: F Source: [place] 3:39 PM [facility] [place] REPOSITORY TYPE CODE TESTS RESULT OUT OF [...] with infection. Performed By: #### GCCT #### [facility] [address] [place], [place] [address] PROGRESS Observed: 10/13/2017 Status: COMPLETED Source: [place] 2:37 PM [facility] [place] REPOSITORY HNO ID: [id number] Author: Luz Waller Service: (none) Author Type: National Van Owner Operator Type: Progress Notes Filed: 10/13/2017 3:57 PM [...] children: 2 Occupational History Occupation Employer Comment [employer]. Social History Main Topics Smoking status: Never [...] external genitalia normal, normal Bartholin's glands, urethra, Orem's glands, no vulvar lesions, no cervical lesions, [...] / CODE REACTION SEVERITY SOURCE 03/01/2018 Drug Penicillins/[id number] Unknown Unknown Bharath Allergy/416 0476(RXNORM) [facility] 250010([facility] ED CT) Repository 04/04/2009 Drug PENICILLINS [facility] Class/82336 Main [place] 1003([facility] Repository CT) ENCOUNTERS ENCOUNTERS ADMIT/DISCHARGE ACCOUNT ADMITTING ENCOUNTER LOCATION SOURCE NUMBER CLASS 08/18/2018/08/20/20 [id number] Irma Little Inpatient [address] ing:WPRoom: Repository [id number]: 1 08/18/2018/08/22/20 [id number] Ambulatory [address] Main [place] Repository 08/10/2018/08/11/20 [id number] Ambulatory [address] Main [place] Repository 08/08/2018 [id number] Ambulatory [facility] ing:LABSPEC Repository 08/08/2018/08/09/20 [id number] Ambulatory [address] Main [place] Repository 07/26/2018/07/27/20 [id number] Ambulatory [address] Main [place] Repository 07/15/2018/07/18/20 [id number] Ambulatory [address] Main [place] Repository 07/14/2018/07/15/20 [id number] Ambulatory [address] Main [place] Repository 06/27/2018/06/27/20 [id number] Ambulatory [address] Main [place] Repository 06/27/2018/06/28/20 [id number] Ambulatory [address] Main [place] Repository 06/07/2018/06/09/20 [id number] Ambulatory [address] Main [place] Repository 05/26/2018/05/27/20 [id number] Ambulatory [address] Main [place] Repository 05/12/2018/09/07 [id number] Ambulatory [place] [facility] Main [place] Repository 05/11/2018/05/14/20 [id number] Ambulatory [address] Main [place] Repository 04/27/2018/04/28/20 [id number] Ambulatory [address] Main [place] Repository 04/13/2018/04/13/20 [id number] Ambulatory [address] Main [place] Repository 04/13/2018/04/14/20 [id number] Ambulatory [address] Main [place] Repository 03/16/2018/03/16/20 [id number] Ambulatory [address] Main [place] Repository 03/16/2018/03/16/20 [id number] Ambulatory [address] Main [place] Repository 03/16/2018/03/25/20 [id number] Ambulatory [address] [place] Repository 03/08/2018/03/10/20 [id number] Ambulatory [address] Repository 03/01/2018/03/01/20 [id number] Emergency [place] ing:ED Repository 02/21/2018/02/23/20 [id number] Ambulatory [address] Repository 02/14/2018 [id number] Ambulatory [facility] [place]aur Repository 02/14/2018/02/15/20 [id number] Ambulatory [address] Repository 02/12/2018/02/14/20 [id number] [place] [address] ing:NP3Iwjl: Repository [id number]: 1 02/10/2018/02/11/20 [id number] Emergency [place] ing:ED Repository 02/10/2018/02/16/20 [id number] Ambulatory [address] Main [place] Repository 01/18/2018/01/21/20 [id number] Ambulatory [address] [place] Repository 10/13/2017/10/14/19 [id number] Ambulatory [address] Repository PAYERS PAYERS ENCOUNTER GUARANTOR PAYER SUBSCRIBER SOURCE 08/18/2018 SHAYE Jackson Primary SHAYE Sinha [id number] SR [facility] [place]: [address] Number: [id number] [address]Kjt: [id number] Repository Date:7969-28-49WA [address] () [id number] [place] [address]WI: 08/18/2018 Secondary NOT GIVENUNK [place] Insurance:SELF PAY [facility] Number: Effective Repository Date:2018-08-18 08/08/2018 SHAYE Jackson Primary SHAYE Sinha [id number] SR Insurance:ANTHEMPolic [place]: Community [address] [place] [address], y Number: [id number] Health Clinic [address]Yig: [id number] Repository Date:1828-78-77XA [address] () [id number] [place] [address]BR: 08/08/2018 Secondary NOT GIVENUNK Bharath Insurance:SELF PAY [facility] Number: Effective Repository Date:2018-08-08 03/01/2018 SHAYE Jackson Primary SHAYE Sinha [id number] SR Insurance:ANTHEMPolic [place]INDOB: [address], y Number: [id number] Health Clinic [address]Mik: [id number] Repository Date:3209-67-41HF BOX () [id number], [place] [address]FI: 03/01/2018 Secondary NOT GIVENUNK [place] Insurance:SELF PAY [facility] Number: Effective Repository Date:2018-03-01 02/12/2018 SHAYE Jackson Primary SHAYE Sinha [id number] SR Insurance:ANTHEMPolic STITZLEINDOB: [address], y Number: [id number] Health Clinic [address]Ukf: [id number] Repository Date:2491-11-64GK BOX () [id number] [place] [address]LB: 02/12/2018 Secondary NOT GIVENUNK Bharath Insurance:SELF PAY [facility] Number: Effective Repository Date:2018-02-12 2018 SHAYE Jackson Primary SHAYE Sinha [id number] SR Insurance:ANTHEMPolic STIMARGELEINDOB: [address], Number: [id number] Health Clinic [address]Lzm: [id number] Repository Date:6900-02-04[address]CEJ, [place] [address]VQ: 2018 Secondary NOT GIVENPRUDENCIO Sinha Insurance:SELF PAY [facility] Number: Effective Repository Date:2018
== END 2018-08-20 19:05 | disposition home or self-care (01) | DRG 805 ==
LOC: WPOUT 15:37 → WP 15:37
PROVIDERS: Admitting Provider Obstetrics & Gynecology; Referring Provider Obstetrics & Gynecology; Visit Provider Obstetrics & Gynecology
DX: O60.14X0 Preterm labor third trimester with preterm delivery third trimester, not applicable or unspecified (principal); O45.93 Premature separation of placenta, unspecified, third trimester; Z3A.35 35 weeks gestation of pregnancy; Z37.0 Single live birth
CPT/HCPCS: 59025; 59050; 85027; 86850; 86900; 87081; 87653; 99218; J7120; G0378; J0702

== ENCOUNTER 2018-11-06 09:26 | Emergency (ER) | payer BC, SELFPAY ==
[2018-11-06 09:27] VITALS: BP 120/76; PULSE 98; RESP 16; TEMP 36.9; O2SAT 97; BMI 22.4
--- NOTE | 2018-11-06 10:32 | ED.DEP ---
ED Disposition - Plan for ED Patient: Instructions: ED Upper Resp Infec No Abx Tx Prescriptions: Albuterol Inhaler [Ventolin Hfa] 1 - 2 puff INHALATION Q4H PRN PRN #1 inhaler PRN Reason: Wheezing Fluticasone 0.05% [Flonase Nasal [place]] 1 spray NASAL BID #1 nasal.sry Referrals: Adonis Mccormack MD [Primary Care Provider] -
--- NOTE | 2018-11-06 10:32 | ED.DCSUM_ITS ---
- ER Visit Summary Date of Service: 11/06/18 Chief Complaint: [] Runny nose cough is Wednesday History of Present Illness: The patient is a 28 F [] she is here complaining of runny nose and cough that began Wednesday she is here with her 9-year-old daughter has intermittent right ear pain, they are both being seen as patients, the patient reports about a week ago she was diagnosed with strep throat cysts through outpatient providers completed amoxicillin and then developed a runny nose and a cough, she has no other complaints no fever no abdominal pain no nausea or vomiting Physical Examination: [] Are within normal range she is afebrile General, no distress resting comfortably HEENT is generally unremarkable, she does have quite a bit of rhinorrhea her airways intact the throat is unremarkable the neck is supple The neck is supple no adenopathy Cardiovascular, regular rate and rhythm Lungs, clear bilateral Abdomen, soft nontender Extremities, no clubbing cyanosis or edema Neurologic, awake alert answering questions appropriately moving all 4 extremities Test Results: [] Emergency Department Course and Treatment: [] Pain to the given her history and physical exam recent antibiotic she likely has URI she will be started on Flonase Proventil and she will follow with her family doctor for further management Treatment Plan: [] Disposition: [] Stable home Impression: [] URI with cough This note was generated with [place] Direct Auto dictation software. It may contain incorrect words, spelling, and punctuation that were not noted in review of the chart prior to signing ED Disposition - Plan for ED Patient: Referrals: Adonis Mccormack MD [Primary Care Provider] -
== END 2018-11-06 11:11 | disposition home or self-care (01) ==
PROVIDERS: Emergency Provider Emergency Medicine
DX: J06.9 Acute upper respiratory infection, unspecified (principal); H92.01 Otalgia, right ear
CPT/HCPCS: 99282

== ENCOUNTER 2021-05-29 09:08 | Emergency (ER) | payer OTHER, SELFPAY ==
[2021-05-29 09:08] VITALS: BP 116/81; PULSE 107; RESP 16; TEMP 36.6; O2SAT 100; BMI 22.9
--- NOTE | 2021-05-29 09:26 | EX.ED.VIS.UR ---
HPI HPI - URI History of Present Illness Chief Complaint: Headache Detail of Chief Complaint: Viral symptoms. Informant: patient Onset/Context/Timing Onset: Days Context: Gradual Onset Timing: Continuous Current Severity: Mild Maximum Severity: Mild Associated Symptoms Associated Symptoms: Positive for Nasal Congestion, Headache, Myalgias, Nausea, Vomiting, Diarrhea, Shortness of Breath and Productive Cough Narrative Narrative: 31-year-old female past medical history depression on Lexapro. Said since Wednesday evening has had body aches nausea, vomiting diarrhea. Also has a cough of clear phlegm and mild shortness of breath. No hemoptysis. No chest pain. No dysuria. Prior similar symptoms: No Recent Illness/Hospitalization: No ROS ROS ED ROS Narrative Nausea, vomiting, diarrhea, cough and shortness of breath. Review of Systems ROS Unobtainable: Denies due to encephalopathy Constitutional Constitutional ED: Denies fever(s) Eyes Eyes: Denies change in vision ENT ENT ED: Denies ear pain or sore throat Cardiovascular Cardiovascular: Denies chest pain Respiratory/Chest Respiratory/Chest: Reports cough, dyspnea and sputum Gastrointestinal Gastrointestinal: Reports diarrhea, nausea and vomiting; Denies abdominal pain or melena Genitourinary Genitourinary ED: Denies dysuria Musculoskeletal Musculoskeletal: Reports myalgias Integumentary Denies rash Neurologic Neurologic: Reports headache(s) Psychiatric Psychiatric: Denies depression Endocrine Endocrinology: Denies polyuria Hematologic/Lymphatic Hematologic/Lymphatic: Denies easy bruising Allergic/Immunologic Allergic/Immunologic ED: Denies urticaria PFSH PFSH Medical History (Updated 05/29/21 @ 11:[address] Marc Graham MD) Anemia Anxiety MVP (mitral valve prolapse) Home Medications albuterol sulfate 1 - 2 puff INHALATION Q4H PRN PRN #1 inhaler 11/06/18 [Rx Last Taken Unknown] fluticasone propionate 1 spray NASAL BID #1 nasal.sry 11/06/18 [Rx Last Taken Unknown] Allergy/AdvReac Type Severity Reaction Status Date / Time Penicillins Allergy Unknown Verified 05/29/21 09:11 Surgical History History of breast surgery History of tonsillectomy Social History Smoking Status: Never smoker EXAM Physical Exam Narrative Exam Narrative: 31 of female no acute distress vital signs stable afebrile. HEENT exam normal. Neck nontender no meningismus. No lymphadenopathy. Lungs clear to auscultation bilaterally. Heart regular rhythm no murmur. Abdomen soft nontender. Moving all 4 extremities. Calves nontender no edema no cords. Neurologic exam normal. Skin unremarkable. Patient does not look septic or toxic. Const Vital Signs: 05/29/21 09:08 05/29/21 09:28 Temperature 97.8 F 97.8 F Temperature Source Temporal Temporal Pulse Rate 107 H 107 H Respiratory Rate 16 16 Blood Pressure 116/81 H 116/81 H Blood Pressure Mean 92 92 Pulse Ox 100 100 Oxygen Delivery Method Room Air Room Air Positive well nourished and well developed; Negative for obese, cachectic or contractures General Appearance ED: well developed and NAD; Negative for cachectic, contractures or pallor Nutritional Appearance: Negative for cachectic or obese HEENT Reports moist mucous membranes normocephalic and atraumatic External Ear: external ears normal Eyes PERRL and EOMs intact bilaterally Neck no lymphadenopathy, supple, no meningeal signs and no JVD General: Negative for anterior neck swelling Resp normal respiratory effort and clear to auscultation bilaterally Auscultation: Negative for rales, rhonchi or wheezes Cardio S1 normal heart sound, S2 normal heart sound and no murmurs Rate: tachycardic Rhythm: regular rhythm GI non-tender, non-distended and no masses Inspection: Negative for abdominal distention Auscultation: normoactive bowel sounds Palpation: soft; Negative for tender or guarding Back/Spine no CVA tenderness and normal ROM General Back: Negative for CVA tenderness Cervical Spine: Negative for cervical spine tenderness Extremity normal to inspection and full ROM General Extremety ED: Negative for cyanosis or tenderness General Extremity: Negative for cyanosis Neuro oriented x3 and CN's II-XII intact bilaterally Sensorium / Orientation: alert, oriented to person, oriented to place and oriented to time; Negative for orientation impaired, lethargic or stuporous Motor Exam: strength 5/5 throughout Psych mental status grossly normal Attitude: No agitated Mood & Affect: Negative for depressed, anxious or tearful Skin General Skin Exam: Negative for jaundice or pallor Lesions: no lesions Rashes: no rashes MDM MDM MDM Narrative Medical decision making narrative: Female viral infectious etiology. Possible Covid will be checked. Chest x-ray and Covid rapid test pending. Treated with IV fluids, Toradol and Zofran. Exam benign. Repeat exam patient is doing well at 11:10 AM. She denies discussed her test results. She will be quarantine for 10 days. Lab Data Attestation: I reviewed the patient's lab results. Lab results narrative: Positive. Rapid test. Radiography Diagnostic Testing: Radiology Impression Chest X-Ray 05/29/21 10:05 IMPRESSION: Bilateral breast implants limiting the evaluation of the right cardiac border. Cannot rule out a small right middle lobe infiltrate. Electronically Signed: Shahab Abbott MD at 10:47 EDT , Service support , Portable chest x-ray single view interpreted by myself and the radiologist no acute abnormality. There were chest wall implants so I did some obscuring the right heart border but no obvious pneumonia seen. Discharge Plan Triage Chief Complaint: Headache ED Provider: Marc Graham Dx/Rx/DC Orders Clinical Impression: COVID-19 Instructions: Human Coronaviruses Prescriptions: No Action fluticasone propionate 1 SPRAY spray,suspension 1 spray NASAL BID Qty: 1 RF: 0 albuterol sulfate 1 INHALER inhaler 1 - 2 puff Inhalation Q4H PRN PRN (Reason: Wheezing) Qty: 1 RF: 0 Primary Care Provider: Care Physician,No Primary Referrals: Eleazar Womack MD [STAFF PHYSICIAN] - 1 Week if not improving Care Physician,No Primary [Primary Care Provider] - Activity Restrictions/Additional Instructions: Plenty of fluids and rest. Alternate Tylenol and Motrin for fever Follow-up if not improving return if feeling worse. Off work through wednesday Disposition Disposition: Home, Self Care
[2021-05-29 09:28] VITALS: BP 116/81; PULSE 107; RESP 16; TEMP 36.6; O2SAT 100
[2021-05-29] MEDS: Ketorolac 30 MG/ML Syringe IV (09:51)
[2021-05-29] MEDS: Ondansetron 4 MG/2 ML Vial IV (09:51)
[2021-05-29] MEDS: 0.9% Normal Saline 1,000 ML 1000 ML IV (09:51)
--- NOTE | 2021-05-29 10:05 | RAD_ITS ---
STUDY: X-RAY CHEST REASON FOR EXAM: Female, 31 years old. Cough TECHNIQUE: Single AP portable view of the chest. COMPARISON: Comparison is made with prior examination dated 05/31/2015. FINDINGS: With again, bilateral breast implants are seen. Questionable early right middle lobe infiltrate. There is no demonstrated pleural abnormality. Normal size heart. Normal mediastinum and vince. Normal visualized pulmonary arteries. Normal visualized aortic arch and descending thoracic aorta. Normal visualized thoracic spine. Normal visualized ribs, clavicles, and shoulders. There is no demonstrated abnormality of the visualized soft tissue structures of the upper abdomen. RAD/Chest 1 View (Portable) IMPRESSION: Bilateral breast implants limiting the evaluation of the right cardiac border. Cannot rule out a small right middle lobe infiltrate. Electronically Signed: Shahab Abbott MD at 10:47 EDT , Service support ,
[2021-05-29 11:44] VITALS: BP 120/82; PULSE 99; RESP 17; TEMP 36.9; O2SAT 99
== END 2021-05-29 11:47 | disposition home or self-care (01) ==
PROVIDERS: Emergency Provider Emergency Medicine
DX: U07.1 COVID-19 (principal); F32.9 Major depressive disorder, single episode, unspecified; Z79.899 Other long term (current) drug therapy
CPT/HCPCS: 71045; 80053; 85025; 87426; 96361; 96374; 96375; 99283; 99284; J7030; J7040; A4216; J2405

== ENCOUNTER 2021-05-29 20:42 | Emergency (ER) | payer OTHER, SELFPAY ==
[2021-05-29 20:43] VITALS: BP 114/78; PULSE 72; RESP 16; TEMP 36.5; O2SAT 99; BMI 21.6
--- NOTE | 2021-05-29 20:55 | EX.ED.DYSGE1 ---
HPI History of Present Illness Chief Complaint: Nausea/Vomiting Detail of Chief Complaint: Covid positive Informant: patient and spouse/S.O. Onset/Context/Timing Onset: Days (Onset of symptoms May 25) Context: Sudden Onset Timing: Continuous and Waxes and wanes Quality: Predominantly GI Location: Generalized with respiratory and GI involvement Current Severity: Mild Maximum Severity: Severe Worsened by: Nothing Relieved by: Nothing Associated Symptoms Associated Symptoms: Temperature 102.0 ?F, respiratory and GI with vomiting Narrative Narrative: Patient is a 31-year-old woman whose onset of symptoms was May 25. Her test was performed today and positive. She does report mild headache. She denies photophobia, neck pain or neck stiffness. She does report mild nasal congestion. She denies ear pain, drainage from ears or decreased hearing. She does report sore throat. She does have mild cough. She denies dyspnea. She states she has vomited 10 times since she was discharged late this morning. was not able to lease picker prescription for Zofran. She denies diarrhea presently. She denies urologic symptoms. She does report dry mouth, thirst and lightheadedness. She also reports myalgias. She denies hematemesis, melena medic easier. Prior similar symptoms: Yes Recent Illness/Hospitalization: Yes PFSH [facility] Medical History Anemia Anxiety MVP (mitral valve prolapse) Home Medications escitalopram oxalate 20 mg PO DAILY 05/29/21 [History Last Taken Unknown] metoclopramide HCl 10 mg PO 4X/DAY PRN #10 tab 05/29/21 [Rx Last Taken Unknown] Allergy/AdvReac Type Severity Reaction Status Date / Time Penicillins Allergy Unknown Verified 05/29/21 20:43 Surgical History History of breast surgery History of tonsillectomy Social History (Updated 05/29/21 @ 20:[address] Joel Sage MD) household members: spouse Smoking Status: Never smoker alcohol intake: never substance use type: does not use ROS ROS ED Constitutional Constitutional ED: Reports chills and fever(s); Denies subjective, sweats or weight loss Eyes Eyes: Denies blurry vision, change in vision or diplopia ENT ENT ED: Reports rhinorrhea and sore throat; Denies ear pain Cardiovascular Cardiovascular: Denies chest pain, orthopnea, palpitations, paroxysmal nocturnal dyspnea or racing heartbeat Respiratory/Chest Respiratory/Chest: Reports cough and dyspnea; Denies dyspnea on exertion, orthopnea, paroxysmal nocturnal dyspnea or sputum Gastrointestinal Gastrointestinal: Reports abdominal pain, nausea and vomiting; Denies constipation, diarrhea or melena Genitourinary Genitourinary ED: Denies dysuria, hematuria or urinary frequency Musculoskeletal Musculoskeletal: Reports arthralgias and myalgias; Denies back pain or neck pain Integumentary Denies rash Neurologic Neurologic: Reports headache(s) and weakness; Denies paresthesias Endocrine Endocrinology: Denies polydipsia, polyphagia or polyuria Hematologic/Lymphatic Hematologic/Lymphatic: Denies easy bleeding or easy bruising Allergic/Immunologic Allergic/Immunologic ED: Denies urticaria EXAM Physical Exam Const Vital Signs: 05/29/21 20:43 Temperature 97.7 F L Temperature Source Temporal Pulse Rate 72 Respiratory Rate 16 Blood Pressure 114/78 Blood Pressure Mean 90 Pulse Ox 99 Oxygen Delivery Method Room Air Positive well nourished and well developed General Appearance ED: well developed and other Patient appears ill but not toxic. HEENT Reports TM's clear and dry mucous membranes HEENT Narrative: Head is atraumatic normocephalic. Nares patent. Posterior pharynx no erythema or exudate. Tympanic Membrane ED: Yes TM's clear Mouth ED: Yes dry mucous membranes Mouth: dry mucous membranes Eyes PERRL and EOMs intact bilaterally General Eye ED: Negative for pale conjunctiva or scleral icterus Neck no lymphadenopathy, supple and no JVD Chest Wall palpation of chest normal Resp normal respiratory effort and clear to auscultation bilaterally Cardio regular rate, regular rhythm, S1 normal heart sound, S2 normal heart sound and no murmurs GI normal to inspection, nondistended, normoactive bowel sounds and non-tender Palpation: soft Back/Spine no CVA tenderness Thoracic Spine / Upper Back: Negative for paraspinal muscle tenderness Extremity normal to inspection General Extremety ED: Negative for edema or tenderness General Extremity: Negative for edema Neuro oriented x3, CN's II-XII intact bilaterally and no sensory deficits noted Sensorium / Orientation: Negative for alert Motor Exam: strength 5/5 throughout Psych mental status grossly normal Skin no rashes or lesions noted and no wounds MDM MDM MDM Narrative Medical decision making narrative: Patient presents with symptoms consistent with Covid. Will treat with antiemetic, IV fluids and since she had no blood work obtained on prior visit will obtain basic metabolic panel to assess anion gap, electrolytes and renal function. CBC was obtained to assess for anemia. Patient has not vomited since arrival. Plan is discharged with prescription for Reglan. Lab Data Attestation: I reviewed the patient's lab results. Lab results narrative: Patient has an elevated BUN and BUN to creatinine ratio consistent with prerenal azotemia and significant vomiting. Potassium is normal. Renal function is normal. Labs: Laboratory Results - last 24 hr 05/29/21 21:36 Sodium 140 Potassium 3.6 Chloride 111 H Carbon Dioxide 24.0 Anion Gap 5 BUN 20 H Creatinine 0.68 Estim Creat Clear Calc 105.89 Est GFR (MDRD) Af Amer 127 Est GFR (MDRD) Non-Af 105 BUN/Creatinine Ratio 29.2 H Glucose 93 Calcium 8.6 Total Bilirubin 0.80 AST 47 H ALT 51 Alkaline Phosphatase 84 Total Protein 8.4 H Albumin 3.9 Globulin 4.5 H Albumin/Globulin Ratio 0.9 Discharge Plan Triage Chief Complaint: Nausea/Vomiting ED Provider: Joel Sage Dx/Rx/DC Orders Clinical Impression: COVID-19, Vomiting, Acute prerenal azotemia Instructions: Coronavirus Disease 2019 (COVID-19): Caring for Yourself or Others, ED Vomiting (Adult) Prescriptions: New metoclopramide HCl [metoclopramide HCl] 10 MG tablet 10 mg PO 4X/DAY PRN (Reason: Headache) Qty: 10 RF: 0 No Action escitalopram oxalate 20 mg tablet 20 mg PO DAILY RF: 0 Primary Care Provider: Rubens Benitez NP Referrals: Rubens Benitez NP, CAMPAIGN MARKETING MANAGER-C [Primary Care Provider] - Disposition Disposition: Home, Self Care
[2021-05-29] MEDS: DiphenhydrAMINE 50 MG/ML Syringe 25 MG IV (21:40)
[2021-05-29] MEDS: Metoclopramide 10 MG/2 ML Vial 5 MG IV (21:41)
[2021-05-29 21:48] LABS: Absolute Lymphocyte Count 0.57 X10^3/uL (0.83-4.51); Absolute Neutrophil Count 4.2 X10^3/uL (2.0-7.7); Basophil# 0.01 X10^3/uL; Basophil% 0.2 % (0-1); Eosinophil# 0.02 X10^3/uL; Eosinophils% 0.4 % (0-5); Hematocrit 43.5 % (37-47); Lymphocyte # 0.57 X10^3/ul (0.83-4.51); Mean Corp Hgb Conc 32.2 g/dL (32-36); Mean Corpuscular Hgb 28.6 pg (27.0-32.0); Mean Corpuscular Volume 88.8 fL (81-99); Mean Platelet Vol. 9.8 fl (6.2-12.0); Monocyte# 0.35 X10^3/uL; Monocyte% 6.8 % (0-10); NRBC Flagged by Analyzer 0 % (0-5); Neutrophil % 81.2 % (47-70); POSITIVE DIFFERENTIAL YES; Platelet Count 197 K/mm3 (150-450); RBC Distribution Width SD 41.9 fl (35.1-43.9); White Blood Count 5.2 K/mm3 (4.4-11.0)
[2021-05-29 22:06] LABS: ALB/GLOB Ratio 0.9 RATIO (0.9-2.4); AST(SGOT) 47 U/L (15-37); Alanine Aminotransfer ALT/SGPT 51 U/L (13-56); Albumin, Serum 3.9 g/dL (3.2-5.0); Alkaline Phosphatase 84 U/L (45-117); Anion Gap 5 (5-15); BUN 20 mg/dL (7-18); BUN/Creat Ratio 29.2 RATIO (10-20); Calcium,Total 8.6 mg/dL (8.5-10.1); Chloride 111 mmol/L (98-107); Creatinine, Serum 0.68 mg/dL (0.55-1.02); EST Glomerular Filtration Rate 105 mL/min (>60); Est Glom Filt Rate - Afr Amer 127 mL/min (>60); Estimated Creatinine Clearance 105.89 ml/min; Globulin 4.5 g/dL (2.2-4.2); Glucose 93 mg/dL (74-106); Potassium 3.6 mmol/L (3.5-5.1); Protein, Total 8.4 g/dL (6.4-8.2); Sodium Level 140 mmol/L (136-145)
[2021-05-29 22:18] LABS: Differential Comment SCANNED; Differential Indicated SCAN CRITERIA MET; Platelet Estimate ADEQUATE (ADEQ); Red Cell Morphology NORM C+C NORMAL (NORM C&C)
== END 2021-05-29 22:56 | disposition home or self-care (01) ==
PROVIDERS: Emergency Provider Emergency Medicine; PCP Nurse Practitioner Family
DX: U07.1 COVID-19 (principal); R39.2 Extrarenal uremia; F41.9 Anxiety disorder, unspecified; Z79.899 Other long term (current) drug therapy
CPT/HCPCS: 80053; 85025; 96361; 96374; 96375; 99284; J7040; A4216

== ENCOUNTER 2021-06-01 08:48 | Emergency (ER) | payer OTHER, SELFPAY ==
[2021-06-01 08:49] VITALS: BP 120/91; PULSE 91; RESP 14; TEMP 36.2; O2SAT 99; BMI 22.9
[2021-06-01] MEDS: 0.9% Normal Saline 1,000 ML 999 ML IV (09:41)
[2021-06-01] MEDS: Ondansetron 4 MG/2 ML Vial IV (09:42)
[2021-06-01] MEDS: dexAMETHasone 10 MG/ML Vial IV (09:42)
[2021-06-01 09:44] LABS: Absolute Lymphocyte Count 0.51 X10^3/uL (0.83-4.51); Absolute Neutrophil Count 2.1 X10^3/uL (2.0-7.7); Basophil# 0.01 X10^3/uL; Basophil% 0.4 % (0-1); Hemoglobin 15.5 g/dL (12.0-15.0); Lymphocyte # 0.51 X10^3/ul (0.83-4.51); Lymphocyte % 17.9 % (19-41); Mean Corp Hgb Conc 33.7 g/dL (32-36); Mean Corpuscular Hgb 28.9 pg (27.0-32.0); Mean Corpuscular Volume 85.7 fL (81-99); Mean Platelet Vol. 9.6 fl (6.2-12.0); Monocyte# 0.28 X10^3/uL; Monocyte% 9.8 % (0-10); NRBC Flagged by Analyzer 0 % (0-5); Neutrophil # 2.05 X10^3/uL (2.7-7.7); Neutrophil % 71.9 % (47-70); POSITIVE DIFFERENTIAL YES; Platelet Count 175 K/mm3 (150-450); RBC Distribution Width CV 13.2 % (11.6-14.6); RBC Distribution Width SD 41.3 fl (35.1-43.9); Red Blood Count 5.37 M/mm3 (4.2-5.4); White Blood Count 2.9 K/mm3 (4.4-11.0)
[2021-06-01 09:46] LABS: Differential Indicated SCAN CRITERIA MET
[2021-06-01 10:04] LABS: Anion Gap 9 (5-15); BUN 14 mg/dL (7-18); BUN/Creat Ratio 17.7 RATIO (10-20); Calcium,Total 9.3 mg/dL (8.5-10.1); Chloride 109 mmol/L (98-107); Creatinine, Serum 0.79 mg/dL (0.55-1.02); EST Glomerular Filtration Rate 89 mL/min (>60); Est Glom Filt Rate - Afr Amer 107 mL/min (>60); Estimated Creatinine Clearance 91.14 ml/min; Glucose 117 mg/dL (74-106); Magnesium 2.1 mg/dL (1.6-2.6); Potassium 3.6 mmol/L (3.5-5.1); Sodium Level 140 mmol/L (136-145)
--- NOTE | 2021-06-01 10:34 | EX.ED.DYSGE1 ---
HPI History of Present Illness Chief Complaint: Nausea/Vomiting/Diarrhea Narrative Narrative: Is a 31-year-old female who was diagnosed with Covid on May 29. She states that she has Zofran and Reglan at home but had continued to have bouts of vomiting despite taking this. She states she also has increased generalized weakness and fatigue. She states as she feels she is not getting better she presents for reevaluation. [facility] Medical History Anemia Anxiety MVP (mitral valve prolapse) Home Medications escitalopram oxalate 20 mg PO DAILY 05/29/21 [History Last Taken Unknown] metoclopramide HCl 10 mg PO 4X/DAY PRN #10 tab 05/29/21 [Rx Last Taken Unknown] dexamethasone [Decadron] 6 mg PO DAILY #10 tab 06/01/21 [Rx Last Taken Unknown] Allergy/AdvReac Type Severity Reaction Status Date / Time Penicillins Allergy Unknown Verified 05/29/21 20:43 Surgical History History of breast surgery History of tonsillectomy Social History (Updated 05/29/21 @ 20:[address] Joel Sage MD) household members: spouse Smoking Status: Never smoker alcohol intake: never substance use type: does not use ROS ROS ED Constitutional Constitutional ED: Reports chills, fever(s) and subjective ENT ENT ED: Reports rhinorrhea and sore throat Cardiovascular Cardiovascular: Denies chest pain Respiratory/Chest Respiratory/Chest: Reports cough; Denies dyspnea Gastrointestinal Gastrointestinal: Reports abdominal pain, diarrhea, nausea and vomiting Genitourinary Genitourinary ED: Denies dysuria Musculoskeletal Musculoskeletal: Reports myalgias Integumentary Denies rash Neurologic Neurologic: Denies headache(s) Hematologic/Lymphatic Hematologic/Lymphatic: Denies easy bleeding or easy bruising EXAM Physical Exam Const Vital Signs: 06/01/21 08:49 Temperature 97.1 F L Temperature Source Temporal Pulse Rate 91 Respiratory Rate 14 Blood Pressure 120/91 H Blood Pressure Mean 100 Pulse Ox 99 Oxygen Delivery Method Room Air Positive well nourished and well developed General Appearance ED: well developed HEENT Reports moist mucous membranes Eyes PERRL and EOMs intact bilaterally Neck supple Neck Narrative: Positive anterior cervical lymphadenopathy noted Resp normal respiratory effort and clear to auscultation bilaterally Resp Narrative: No nasal flaring retractions tachypnea or accessory muscle use Cardio regular rate and regular rhythm GI non-distended GI Narrative: Mild diffuse pain with palpation with hyperactive bowel sounds but no voluntary guarding or rigidity Palpation: soft Extremity normal to inspection Neuro oriented x3 and CN's II-XII intact bilaterally Sensorium / Orientation: alert Psych mental status grossly normal Skin no rashes or lesions noted Skin Narrative: Skin turgor is normal MDM MDM MDM Narrative Medical decision making narrative: Patient presented to the ER afebrile and in no acute respiratory distress. Her history and exam is most consistent with COVID-19. With report of persistent nausea and vomiting I did elect to perform basic electrolyte studies. Patient's electrolytes showed no clinically significant findings. Her white blood cell count is decreased at 2.9 but this is consistent with her Covid diagnosis. On reevaluation she remains in no acute distress and has a persistent soft nonsurgical abdomen. Therefore she'll be added Decadron to her Zofran and Reglan and is safe for discharge. Lab Data Attestation: I reviewed the patient's lab results. Labs: Laboratory Results - last 24 hr 06/01/21 06/01/21 09:35 09:35 WBC 2.9 L RBC 5.37 Hgb 15.5 H Hct 46.0 MCV 85.7 MCH 28.9 MCHC 33.7 RDW Std Deviation 41.3 RDW Coeff of Ming 13.2 Plt Count 175 MPV 9.6 Immature Gran % (Auto) 0.000 Neut % (Auto) 71.9 H Lymph % (Auto) 17.9 L Summers % (Auto) 9.8 Eos % (Auto) 0.0 Baso % (Auto) 0.4 Absolute Neuts (auto) 2.1 Absolute Lymphs (auto) 0.51 L Nucleated RBC % 0 Diff Path Review May foll Sodium 140 Potassium 3.6 Chloride 109 H Carbon Dioxide 22.0 Anion Gap 9 BUN 14 Creatinine 0.79 Estim Creat Clear Calc 91.14 Est GFR (MDRD) Af Amer 107 Est GFR (MDRD) Non-Af 89 BUN/Creatinine Ratio 17.7 Glucose 117 H Calcium 9.3 Magnesium 2.1 Discharge Plan Triage Chief Complaint: Nausea/Vomiting/Diarrhea ED Provider: Jayant Portillo Dx/Rx/DC Orders Clinical Impression: COVID-19, Vomiting Instructions: Coronavirus Disease 2019 (COVID-19): Caring for Yourself or Others Prescriptions: New dexamethasone [Decadron] 6 mg tablet 6 mg PO DAILY Qty: 10 RF: 0 No Action escitalopram oxalate 20 mg tablet 20 mg PO DAILY RF: 0 metoclopramide HCl [metoclopramide HCl] 10 MG tablet 10 mg PO 4X/DAY PRN (Reason: Headache) Qty: 10 RF: 0 Primary Care Provider: Rubens Benitez NP Referrals: Rubens Benitez NP, ORTHOPEDIC TECHNICIAN-C [Primary Care Provider] - Disposition Disposition: Home, Self Care
[2021-06-02 14:18] LABS: Pathologist Review Reviewed
== END 2021-06-01 11:02 | disposition home or self-care (01) ==
PROVIDERS: Emergency Provider Emergency Medicine; PCP Nurse Practitioner Family
DX: U07.1 COVID-19 (principal)
CPT/HCPCS: 80048; 83735; 85025; 96361; 96374; 96375; 99283; J7030; J2405

== ENCOUNTER 2021-06-03 03:45 | Emergency (ER) | payer OTHER, SELFPAY ==
--- NOTE | 2021-06-03 06:19 | EDS_ITS ---
HPI History of Present Illness Informant: patient Onset/Context/Timing Onset: Days Context: Gradual Onset Current Severity: Moderate Maximum Severity: Moderate Narrative Narrative: Patient presents secondary to nausea and vomiting. She was diagnosed with Covid on May 29 after developing symptoms on the . She has had problems with nausea and vomiting. She has Zofran at home but states she ran out of the [employer] that was working for her. She is also on Decadron. Patient presents this morning due to nausea and vomiting and unable to keep anything down. She denies having fevers or chills. No diarrhea. Minimal cough. PFSH [facility] Medical History Anemia Anxiety MVP (mitral valve prolapse) Home Medications escitalopram oxalate 20 mg PO DAILY 05/29/21 [History Last Taken Unknown] metoclopramide HCl 10 mg PO 4X/DAY PRN #10 tab 05/29/21 [Rx Last Taken Unknown] dexamethasone [Decadron] 6 mg PO DAILY #10 tab 06/01/21 [Rx Last Taken Unknown] dexamethasone [Decadron] 6 mg PO DAILY #10 tab 06/01/21 [Rx Last Taken Unknown] metoclopramide HCl [Reglan] 10 mg PO Q6H PRN #14 tab 06/03/21 [Rx Last Taken Unknown] potassium chloride 20 meq PO BID 3 Days #6 tab 06/03/21 [Rx Last Taken Unknown] Allergy/AdvReac Type Severity Reaction Status Date / Time Penicillins Allergy Unknown Verified 05/29/21 20:43 Surgical History History of breast surgery History of tonsillectomy Social History household members: spouse Smoking Status: Never smoker alcohol intake: never substance use type: does not use ROS ROS ED Constitutional Constitutional ED: Denies chills or fever(s) Eyes Eyes: Denies blurry vision or change in vision ENT ENT ED: Denies ear pain, rhinorrhea or sore throat Cardiovascular Cardiovascular: Denies chest pain or palpitations Respiratory/Chest Respiratory/Chest: Reports cough Gastrointestinal Gastrointestinal: Reports abdominal pain, nausea and vomiting Genitourinary Genitourinary ED: Denies dysuria Musculoskeletal Musculoskeletal: Reports myalgias Integumentary Denies rash Neurologic Neurologic: Denies weakness Endocrine Endocrinology: Denies polydipsia or polyuria Allergic/Immunologic Allergic/Immunologic ED: Denies urticaria EXAM Physical Exam Const Positive well nourished and well developed General Appearance ED: well developed HEENT Reports moist mucous membranes Eyes PERRL and EOMs intact bilaterally Neck supple Chest Wall inspection of chest normal and palpation of chest normal Resp normal respiratory effort and clear to auscultation bilaterally Cardio regular rate and regular rhythm GI Auscultation: hypoactive bowel sounds Palpation: soft and tender other (Mild diffuse tenderness to palpation. No guarding or rebound.) Extremity normal to inspection Neuro oriented x3 Sensorium / Orientation: alert Skin no rashes or lesions noted MDM MDM MDM Narrative Medical decision making narrative: Patient was given Reglan and Benadryl to help control nausea. Lab work obtained. Lab Data Attestation: I reviewed the patient's lab results. Labs: CBC reveals normal white count 3.95. Hemoglobin 15.1. Platelet count 177,000. BMP significant for potassium of 2.8. Creatinine normal at 0.896. Urinalysis obtained but not a clean sample making interpretation difficult. Treatment and Re-Evaluation Comments:: Patient's lab work is reviewed. Potassium is low at 2.8. This time she is tolerating p.o. fluids but does not feel that she can tolerate oral potassium supplementation. IV potassium is ordered. Urinalysis is not a clean sample and was primarily obtained to look at urine ketones. She does have 50 urine ketones. She was given a 500 cc IV fluid bolus here. Patient will be discharged following completion of her potassium. New prescription for Reglan will be provided as well as 3 additional days of potassium replacement.. Discharge Plan Triage ED Provider: Mary Ellen Spencer Dx/Rx/DC Orders Clinical Impression: Hypokalemia, Vomiting, COVID-19 Prescriptions: New metoclopramide HCl [Reglan] 10 mg tablet 10 mg PO Q6H PRN (Reason: nausea and vomiting) Qty: 14 RF: 0 potassium chloride 20 mEq tablet extended release 20 meq PO BID 3 Days Qty: 6 RF: 0 No Action escitalopram oxalate 20 mg tablet 20 mg PO DAILY RF: 0 metoclopramide HCl [metoclopramide HCl] 10 MG tablet 10 mg PO 4X/DAY PRN (Reason: Headache) Qty: 10 RF: 0 dexamethasone [Decadron] 6 mg tablet 6 mg PO DAILY Qty: 10 RF: 0 dexamethasone [Decadron] 6 mg tablet 6 mg PO DAILY Qty: 10 RF: 0 Primary Care Provider: Rubens Benitez NP Referrals: Rubens Benitez NP, MUSIC INDUSTRY INTERN-C [Primary Care Provider] - 1 Week Disposition Disposition: Home, Self Care
[2021-06-03 07:31] LABS: Color, Urine Amber (Yellow); Glucose, Dipstick NEGATIVE (Normal); Ketone-Dipstick 50 mg/dl (Negative); Protein-Dipstick 100 mg/dl (Negative); Urine Bilirubin Dipstick 1 mg/dL (Negative); Urine Clarity Cloudy (Clear); Urine Urobilinogen 4 mg/dl (Normal)
[2021-06-03 07:32] LABS: Bacteria 2+ /hpf (None Seen); Leukocyte Esterase-Dipstick 100 /ul (Negative); Mucous, Urine 4+ /hpf (<or=2+); Nitrite-Dipstick Positive (Negative); Occult Blood-Urine 250 /ul (Negative); Red Blood Cells-Urine 25-50 SEEN /hpf (0-5); Squamous Epithelial Cells - UA 10-25 SEEN /hpf (5-10); White Blood Cells 10-25 SEEN /hpf (0-5)
[2021-06-03 10:03] LABS: BUN 14 mg/dL (7-18); BUN/Creat Ratio 15.6 RATIO (10-20); Calcium,Total 9.7 mg/dL (8.5-10.1); Chloride 106 mmol/L (98-107); EST Glomerular Filtration Rate 77 mL/min (>60); Est Glom Filt Rate - Afr Amer 93 mL/min (>60); Glucose 119 mg/dL (74-106); Potassium 2.8 mmol/L (3.5-5.1); Sodium Level 140 mmol/L (136-145)
[2021-06-03 10:04] LABS: Anion Gap 12 (5-15)
--- NOTE | 2021-06-03 10:34 | ED.RN ---
ALL POTASSIUM GIVEN PER PAPER CHARTING
--- NOTE | 2021-06-03 10:39 | ED.RN ---
All IV potassium given. See downtime forms.
[2021-06-03 10:42] VITALS: BP 120/61; PULSE 80; RESP 14; O2SAT 100
[2021-06-03 10:47] LABS: Hematocrit 44.9 % (37-47); Hemoglobin 15.1 g/dL (12.0-15.0); Mean Corp Hgb Conc 33.6 g/dL (32-36); Mean Corpuscular Hgb 28.5 pg (27.0-32.0); Mean Corpuscular Volume 84.9 fL (81-99); Mean Platelet Vol. 10.5 fl (6.2-12.0); Platelet Count 177 K/mm3 (150-450); RBC Distribution Width SD 40.2 fl (35.1-43.9); Red Blood Count 5.29 M/mm3 (4.2-5.4)
[2021-06-03 10:48] LABS: Absolute Lymphocyte Count 1.15 X10^3/uL (0.83-4.51); Absolute Neutrophil Count 2.4 X10^3/uL (2.0-7.7); Differential Comment SCANNED; Differential Indicated SCAN CRITERIA MET; Lymphocyte # 1.15 X10^3/ul (0.83-4.51); Lymphocyte % 29.1 % (19-41); Monocyte% 9.9 % (0-10); NRBC Flagged by Analyzer 0 % (0-5); Neutrophil % 60.7 % (47-70); POSITIVE MORPHOLOGY YES
[2021-06-03 10:49] LABS: Atypical Lymphocyte RARE %
== END 2021-06-03 10:45 | disposition home or self-care (01) ==
PROVIDERS: Emergency Provider Emergency Medicine; PCP Nurse Practitioner Family
DX: U07.1 COVID-19 (principal); E87.6 Hypokalemia; I34.1 Nonrheumatic mitral (valve) prolapse; F41.9 Anxiety disorder, unspecified; Z79.01 Long term (current) use of anticoagulants; Z79.899 Other long term (current) drug therapy
CPT/HCPCS: 36415; 80048; 81001; 85025; 96365; 96366; 96375; 99284; J7030; A4216

== ENCOUNTER 2021-06-11 13:04 | Inpatient (IN) | payer OTHER, SELFPAY ==
[2021-06-11] VITALS (11 sets, daily range): BP systolic 102–124; BP diastolic 70–97; PULSE 80–111; RESP 14–27; TEMP 36.7–39.1; O2SAT 95–100; BMI 22.4
--- NOTE | 2021-06-11 13:28 | RAD_ITS ---
STUDY: X-RAY CHEST REASON FOR EXAM: Female, 31 years old. Fever and cough TECHNIQUE: Single AP portable view of the chest. COMPARISON: 05/29/2021 FINDINGS: Lungs are expanded with subtle interstitial and airspace opacifications in the lower lung ham more conspicuous than on the previous study. This pattern of opacification suggests Covid pneumonia, but can also be seen with multifocal pneumonitis or drug interaction/toxicity. Normal size heart. Normal mediastinum and vince. Normal visualized pulmonary arteries. Normal visualized aortic arch and descending thoracic aorta. Normal visualized thoracic spine. Normal visualized ribs, clavicles, and shoulders. There is no demonstrated abnormality of the visualized soft tissue structures of the upper abdomen. RAD/Chest 1 View (Portable) IMPRESSION: Lungs are expanded with subtle interstitial and airspace opacifications in the lower lung ham more conspicuous than on the previous study. Follow-up recommended to show resolution Electronically Signed: Gavin Nicholson MD at 13:55 EDT , Service support ,
--- NOTE | 2021-06-11 13:28 | EKG12_ITS ---
Test Reason : GENERAL ILLNESS Blood Pressure : / mmHG Vent. Rate : 107 BPM Atrial Rate : 107 BPM P-R Int : 202 ms QRS Dur : 078 ms QT Int : 314 ms P-R-T Axes : 031 088 -25 degrees QTc Int : 419 ms Sinus tachycardia Nonspecific ST-T Changes Abnormal ECG Confirmed by BENJAMIN TOLENTINO, SLADE ([id number]), associate editor DAVE DUTTON ([id number]) on 06/16/2021 10:50:11 AM Referred By: JEFRY Confirmed By:HOSEA ALEXANDER MD
--- NOTE | 2021-06-11 13:47 | VDUE_ITS ---
Reason For Study: Pain Left Proximal Left jugular vein is spontaneous, widely patent, phasic, with no intraluminal echogenicity noted. Left subclavian vein is spontaneous, widely patent, phasic, with no intraluminal echogenicity noted. Left Arm Lt AxillaryV and Lt BrachialV are dilated and non compressible consistent with acute DVT Lt BasilicV and Lt CephalicV are dilated and non compressible consistent with acute SVT. Left Lower Arm Left radial vein is compressible. Left ulnar vein is compressible. Patient Safety Study was abbreviated due to Covid19 protocol. Prelim given to Dr. Casarez. VL/Venous Duplex US, Unilateral Interpretation Summary Acute deep venous thrombosis left axillary and brachial veins Superficial thrombophlebitis lleft cephalic and basilic veins Abreviated Covid 19 protocol Ordering Physician: Jcarlos Casarez Referring Physician: Rubens Benitez Performed By: Aleksandra Davila RDCS, RVT ?
--- NOTE | 2021-06-11 13:47 | CT_ITS ---
STUDY: CTA CHEST REASON FOR EXAM: Female, 31 years old. Acute substernal chest pain RADIATION DOSAGE (If Supplied By Facility): CTDIvol = ( 5.8 ) mGy, DLP = ( 126.86 ) mGycm TECHNIQUE: The examination was performed with the intravenous administration of IV 100mL Isovue-370. Post-processing of the angiographic images was performed, with multiplanar reformation and 3D reconstruction. Individualized dose optimization techniques were used for this CT. COMPARISON: None. FINDINGS: Bilateral breast implants free of complication Low-density filling defect noted within the distal aspect of the right main pulmonary artery extending into branches leading to the right middle and lower lobes. No filling defects noted within branches leading to the right upper lobe. No filling defects noted within the proximal branches of the left pulmonary artery. Normal thoracic aorta and visualized great vessels. There is no demonstrated aortic dissection. Normal heart and pericardium. Normal mediastinum. Normal hilar regions. Normal visualized trachea and bronchi. The lungs are well expanded. Patchy interstitial and airspace opacifications noted in the periphery of both lower lung ham with small pleural effusions and atelectasis. Pattern of opacification suggests Covid pneumonia, but could also be seen with multifocal pneumonitis. Normal pleura. Normal chest wall structures. Normal osseous structures. Normal visualized upper abdomen. CT/CTA Chest W/WO Contrast IMPRESSION: Filling defects noted within the distal aspect of the right main pulmonary artery extending into branches leading to the right middle and right lower lobes. Patchy interstitial and airspace opacifications of both lung ham with dependent atelectasis. Differential as described above. Bilateral breast implants removed complication Pectus excavatum deformity N.B. : The above Results were Read Back by Gavin Nicholson MD to Jcarlos Casarez DO, and understanding confirmed on 06/11/2021 15:48:09 (ET). Electronically Signed: Gavin Nicholson MD at 15:51 EDT , Service support ,
[2021-06-11] MEDS: Morphine 4 MG/ML Syringe IV ×2 (14:03→16:16)
[2021-06-11] MEDS: 0.9% Normal Saline 1,000 ML 999 ML IV (14:03)
[2021-06-11] MEDS: Ondansetron 4 MG/2 ML Vial IV (14:03)
[2021-06-11 14:06] LABS: Absolute Lymphocyte Count 1.56 X10^3/uL (0.83-4.51); Absolute Neutrophil Count 7.3 X10^3/uL (2.0-7.7); Basophil# 0.02 X10^3/uL; Basophil% 0.2 % (0-1); Eosinophil# 0.05 X10^3/uL; Eosinophils% 0.5 % (0-5); Hematocrit 41.2 % (37-47); Lymphocyte # 1.56 X10^3/ul (0.83-4.51); Lymphocyte % 15.4 % (19-41); Mean Corpuscular Hgb 28.7 pg (27.0-32.0); Mean Corpuscular Volume 84.4 fL (81-99); Mean Platelet Vol. 9.3 fl (6.2-12.0); Monocyte# 1.12 X10^3/uL; NRBC Flagged by Analyzer 0 % (0-5); Neutrophil # 7.34 X10^3/uL (2.7-7.7); Neutrophil % 72.3 % (47-70); Platelet Count 370 K/mm3 (150-450); RBC Distribution Width CV 12.5 % (11.6-14.6); RBC Distribution Width SD 37.3 fl (35.1-43.9); Red Blood Count 4.88 M/mm3 (4.2-5.4); White Blood Count 10.2 K/mm3 (4.4-11.0)
--- NOTE | 2021-06-11 14:14 | EDS_ITS ---
HPI History of Present Illness Chief Complaint: General Illness Narrative Narrative: 31-year-old female with a 16-17 of COVID-19 symptoms. She reports that she has worsening pain on left upper extremity over the antecubital fossa mostly. She also states that she had an IV in this placed on her last visit. She presents with a fever, tachycardia, tachypnea. Patient does report right-sided chest pain as well. Patient has not been taking her potassium chloride at home for hypokalemia and has not been taking dexamethasone. She states of them COVID- 19 she is not had any significant medical problems. [facility] Medical History Anemia Anxiety MVP (mitral valve prolapse) Home Medications metoclopramide HCl 10 mg PO 4X/DAY PRN #10 tab 05/29/21 [Rx Last Taken 06/09/21] acetaminophen 500 mg PO DAILY PRN 06/11/21 [History Last Taken 06/10/21] dexamethasone 4 mg PO DAILY 06/11/21 [History Last Taken 06/09/21] escitalopram oxalate 20 mg PO DAILY 06/11/21 [History Last Taken 2 Weeks Ago ~05/28/21] Allergy/AdvReac Type Severity Reaction Status Date / Time Penicillins Allergy Unknown Verified 05/29/21 20:43 Surgical History History of breast surgery History of tonsillectomy Social History household members: spouse Smoking Status: Never smoker alcohol intake: never substance use type: does not use ROS ROS ED Constitutional Constitutional ED: Reports chills and fever(s) Eyes Eyes: Denies blurry vision or diplopia ENT ENT ED: Denies rhinorrhea or sore throat Cardiovascular Cardiovascular: Reports chest pain and racing heartbeat Respiratory/Chest Respiratory/Chest: Reports cough and dyspnea Gastrointestinal Gastrointestinal: Reports abdominal pain, nausea and vomiting Genitourinary Genitourinary ED: Denies dysuria or hematuria Musculoskeletal Musculoskeletal: Denies back pain or neck pain Integumentary Reports other Details: Swelling and pain over left antecubital fossa and left upper arm Neurologic Neurologic: Reports headache(s); Denies paresthesias EXAM Physical Exam Const Vital Signs: 06/11/21 13:04 06/11/21 13:40 06/11/21 13:43 Temperature 102.3 F H Temperature Source Temporal Pulse Rate 111 H 102 H Respiratory Rate 24 H 27 H Respiratory Effort Normal Respiratory Pattern Normal Blood Pressure 124/97 H 122/85 H Blood Pressure Mean 106 97 Pulse Ox 98 100 100 Oxygen Delivery Method Room Air Room Air Room Air 06/11/21 15:00 06/11/21 15:08 06/11/21 16:01 Temperature 99.1 F 99.1 F Temperature Source Temporal Temporal Pulse Rate 102 H 82 Respiratory Rate 21 H 15 Respiratory Effort Respiratory Pattern Blood Pressure 111/76 111/76 Blood Pressure Mean 87 87 Pulse Ox 98 98 Oxygen Delivery Method Room Air Room Air Positive well nourished General Appearance ED: NAD HEENT Reports dry mucous membranes Negative for trauma Mouth ED: Yes dry mucous membranes Mouth: dry mucous membranes Eyes PERRL and EOMs intact bilaterally Chest Wall Chest: other Tenderness to palpation over the right ribs diffusely. No crepitance. No erythema or rash. Resp normal respiratory effort Auscultation: Negative for rales, rhonchi or wheezes Cardio regular rate Rate: tachycardic GI normal to inspection, nondistended, normoactive bowel sounds Neuro oriented x3 and CN's II-XII intact bilaterally Sensorium / Orientation: alert Skin Skin Narrative: Pain and swelling over the left antecubital fossa extending into the left brachial region. MDM MDM MDM Narrative Medical decision making narrative: Patient a 16-17 of COVID-19 symptoms presenting with fever, tachycardia, tachypnea. Sepsis work-up was initiated. Patient had EKG which on my interpretation shows T wave inversions and ST depressions from V3 to V6. Patient also does have similar findings and lead II, lead III, lead aVF. No ST elevation. This appears to be new since her previous EKG. She is reporting right-sided chest pain. Chest x-ray on my interpretation. Attempted to give the patient Tylenol but she refuses. She states she has not been taking anything by mouth. Patient's CBC shows no leukocytosis and her white blood cell count is 10.2 which is actually increased since her previous visits when she was leukopenic. Hemoglobin hematocrit are stable. Platelets are normal. Renal function is normal with potassium still low at 2.9. Will check a magnesium prior to giving her potassium which will need to be given LFTs are normal with exception of a total bilirubin of 1.9. Lactic acid 1.4. Troponin is 4. Will obtain delta troponin. I did obtain a duplex ultrasound of the left upper ext remity which is positive for blood clots in the axillary, brachial, basilic, cephalic veins. This was reported to me by the cardiovascular technician. Patient CTA of the chest also showed extensive clot from the right main distally. This is likely the source of her chest pain. Given the extensive DVT and PE I discussed the patient with the hospitalist for admission and heparin drip. Patient given a second dose of morphine for pain. Impression: 1. Pulmonary embolism 2. DVT 3. Abnormal EKG 4. Hypokalemia Lab Data Attestation: I reviewed the patient's lab results. Labs: Laboratory Results - last 24 hr 06/11/21 06/11/21 06/11/21 13:52 13:52 13:52 WBC 10.2 RBC 4.88 Hgb 14.0 Hct 41.2 MCV 84.4 MCH 28.7 MCHC 34.0 RDW Std Deviation 37.3 RDW Coeff of Ming 12.5 Plt Count 370 MPV 9.3 Immature Gran % (Auto) 0.600 Neut % (Auto) 72.3 H Lymph % (Auto) 15.4 L [place] % (Auto) 11.0 H Eos % (Auto) 0.5 Baso % (Auto) 0.2 Absolute Neuts (auto) 7.3 Absolute Lymphs (auto) 1.56 Nucleated RBC % 0 Sodium 137 Potassium 2.9 L Chloride 101 Carbon Dioxide 29.0 Anion Gap 7 BUN 12 Creatinine 0.68 Estim Creat Clear Calc 105.89 Est GFR (MDRD) Af Amer 128 Est GFR (MDRD) Non-Af 106 BUN/Creatinine Ratio 17.6 Glucose 109 H Lactic Acid 1.4 Calcium 9.0 Magnesium Total Bilirubin 1.90 H AST 32 ALT 54 Alkaline Phosphatase 102 Troponin I High Sens 4 Total Protein 8.2 Albumin 3.4 Globulin 4.8 H Albumin/Globulin Ratio 0.7 L 06/11/21 06/11/21 13:52 15:03 WBC RBC Hgb Hct MCV MCH MCHC RDW Std Deviation RDW Coeff of Ming Plt Count MPV Immature Gran % (Auto) Neut % (Auto) Lymph % (Auto) [place] % (Auto) Eos % (Auto) Baso % (Auto) Absolute Neuts (auto) Absolute Lymphs (auto) Nucleated RBC % Sodium Potassium Chloride Carbon Dioxide Anion Gap BUN Creatinine Estim Creat Clear Calc Est GFR (MDRD) Af Amer Est GFR (MDRD) Non-Af BUN/Creatinine Ratio Glucose Lactic Acid Calcium Magnesium 2.5 Total Bilirubin AST ALT Alkaline Phosphatase Troponin I High Sens 5 Total Protein Albumin Globulin Albumin/Globulin Ratio Radiography Diagnostic Testing: Radiology Impression Chest X-Ray 06/11/21 13:28 IMPRESSION: Lungs are expanded with subtle interstitial and airspace opacifications in the lower lung ham more conspicuous than on the previous study. Follow-up recommended to show resolution Electronically Signed: Gavin Nicholson MD at 13:55 EDT , Service support , Chest CTA 06/11/21 13:47 IMPRESSION: Filling defects noted within the distal aspect of the right main pulmonary artery extending into branches leading to the right middle and right lower lobes. Patchy interstitial and airspace opacifications of both lung ham with dependent atelectasis. Differential as described above. Bilateral breast implants removed complication Pectus excavatum deformity N.B. : The above Results were Read Back by Gavin Nicholson MD to Jcarlos Casarez DO, and understanding confirmed on 06/11/2021 15:48:09 (ET). Electronically Signed: Gavin Nicholson MD at 15:51 EDT , Service support , ADDENDUM: 06/11/21 1558 IMPRESSION: Filling defects noted within the distal aspect of the right main pulmonary artery extending into branches leading to the right middle and right lower lobes. Patchy interstitial and airspace opacifications of both lung ham with dependent atelectasis. Differential as described above. Bilateral breast implants removed complication Pectus excavatum deformity N.B. : The above Results were Read Back by Gavin Nicholson MD to Jcarlos Casarez DO, and understanding confirmed on 06/11/2021 15:48:09 (ET). Electronically Signed: Gavin Nicholson MD at 15:51 EDT , Service support , Discharge Plan Triage Chief Complaint: General Illness ED Provider: Jcarlos Casarez Dx/Rx/DC Orders Prescriptions: No Action metoclopramide HCl [metoclopramide HCl] 10 MG tablet 10 mg PO 4X/DAY PRN (Reason: Headache) Qty: 10 RF: 0 acetaminophen 500 mg Tablet 500 mg PO DAILY PRN (Reason: PAIN AND FEVER) RF: 0 dexamethasone 4 mg tablet 4 mg PO DAILY RF: 0 escitalopram oxalate 20 mg tablet 20 mg PO DAILY RF: 0 Primary Care Provider: Rubens Benitez NP
[2021-06-11 14:29] LABS: ALB/GLOB Ratio 0.7 RATIO (0.9-2.4); AST(SGOT) 32 U/L (15-37); Alanine Aminotransfer ALT/SGPT 54 U/L (13-56); Albumin, Serum 3.4 g/dL (3.2-5.0); Alkaline Phosphatase 102 U/L (45-117); Anion Gap 7 (5-15); BUN 12 mg/dL (7-18); BUN/Creat Ratio 17.6 RATIO (10-20); Chloride 101 mmol/L (98-107); Creatinine, Serum 0.68 mg/dL (0.55-1.02); EST Glomerular Filtration Rate 106 mL/min (>60); Est Glom Filt Rate - Afr Amer 128 mL/min (>60); Estimated Creatinine Clearance 105.89 ml/min; Globulin 4.8 g/dL (2.2-4.2); Glucose 109 mg/dL (74-106); Lactic Acid 1.4 mmol/L (0.4-1.9); Potassium 2.9 mmol/L (3.5-5.1); Protein, Total 8.2 g/dL (6.4-8.2); Sodium Level 137 mmol/L (136-145); Troponin-I HS 4 pg/mL (3.0-54.0)
[2021-06-11 15:11] LABS: Magnesium 2.5 mg/dL (1.6-2.6)
[2021-06-11] MEDS: Ketorolac 15 MG/ML Vial IV (15:12)
[2021-06-11 15:33] LABS: Troponin-I HS 5 pg/mL (3.0-54.0)
[2021-06-11] MEDS: Potassium Chloride 10mEq/100mL 10 MEQ/100 ML IV.SOLN. 100 MEQ IV BOLUS ×4 (16:06→19:54)
--- NOTE | 2021-06-11 16:06 | PCM.HP.STD ---
HPI - General General Date of Admission: 06/11/21 Date of Service: 06/11/21 Chief Complaint: COVID + status, onset now R sided pleuritic chest pain, dyspnea. HPI Narrative The patient is a 31 y/o F w/ PMHx: Anemia, Anxiety, MVP who presents to the [facility] ED on 06/11/21 with history of COVID illness, now on day #17 with sudden onset right sided pleuritic chest pain as well as complaint of redness to the LUE at sight of recent IV with prior ED visit ~ 1 week prior prompting evaluation. Patient during her illness experienced fever, chills, headache, sore throat, body aches, cough, dyspnea, nausea, emesis as well as diarrhea although currently some of the symptoms have improved however she does continue to have nausea with difficulty keeping food down and occasional loose stool with then now onset of right-sided pleuritic pain and left upper extremity swelling as well as pain prompting visit. Patient is not vaccinated against COVID-19. Work-up in the ED included T102.3, heart rate 111, BP 124/97, respiratory rate 24-27, 98% on room air, CBC with WBC 10.2, hemoglobin 14, platelet 370 without marked shift, CMP with potassium 2.9, chloride 109, lactic acid 1.4, magnesium 2.5, total bilirubin 1.90 with normal AST/ALT, troponin high-sensitivity 5 4 with repeat 5, chest x-ray with subtle interstitial airspace opacifications in the lower lung ham more conspicuous than on prior study, CTPA with filling defects noted within the distal aspect of the right main pulmonary artery extending the branches leading the right middle and right lower lobes, patchy interstitial airspace of calcifications of both lung ham with dependent atelectasis, pectus excavatum deformity, presence of bilateral breast implants. In the ED patient ministered normal saline bolus, Tylenol, Toradol, morphine 4 mg IV x2, Zofran and initiated on 40 mill equivalent potassium IV. [facility] Medical History (Updated 06/11/21 @ 16:[address] Doris Godoy MD) Anemia Anxiety MVP (mitral valve prolapse) Threatened in early Home Medications metoclopramide HCl 10 mg PO 4X/DAY PRN #10 tab 05/29/21 [Rx Last Taken 06/09/21] acetaminophen 500 mg PO DAILY PRN 06/11/21 [History Last Taken 06/10/21] dexamethasone 4 mg PO DAILY 06/11/21 [History Last Taken 06/09/21] escitalopram oxalate 20 mg PO DAILY 06/11/21 [History Last Taken 2 Weeks Ago ~05/28/21] Allergy/AdvReac Type Severity Reaction Status Date / Time Penicillins Allergy Unknown Verified 05/29/21 20:43 Family History (Updated 06/11/21 @ 16:[address] Doris Godoy MD) Mother Hypertension Father Hypertension Surgical History History of breast surgery History of tonsillectomy Social History (Updated 06/11/21 @ 16:[address] Doris Godoy MD) household members: spouse and children Smoking Status: Never smoker alcohol intake: never substance use type: does not use ROS ROS Narrative Admission Review of Systems: CONSTITUTIONAL: No weight loss, + fever, chills, weakness or fatigue. HEENT: + Headache congestion, sore throat. Eyes: No visual loss, blurred vision, double vision or yellow sclerae. Ears, Nose, Throat: No hearing loss, sneezing. SKIN: No rash or itching, lesions, wounds. CARDIOVASCULAR: + chest pain, edema, No orthopnea, syncopal events. RESPIRATORY: + shortness of breath, cough, No wheezing, hemoptysis. GASTROINTESTINAL: + anorexia, nausea, vomiting, diarrhea, No abdominal pain, melena, BRBPR. GENITOURINARY: No dysuria, frequency, urgency or retention. NEUROLOGICAL: + headache, No dizziness, syncope, paralysis, ataxia, numbness or tingling in the extremities, focal weakness, change in bowel or bladder control, seizure. MUSCULOSKELETAL: + muscle, back pain, joint pain or stiffness. HEMATOLOGIC: No anemia, bleeding or bruising. LYMPHATICS: No enlarged nodes. No history of splenectomy. PSYCHIATRIC: + history of depression or anxiety. ENDOCRINOLOGIC: No reports of sweating, cold or heat intolerance. No polyuria or polydipsia. ALLERGIES: No history of asthma, hives, eczema or rhinitis. Vital Signs Vital Signs Vital Signs: 06/11/21 13:04 06/11/21 13:40 06/11/21 13:43 Temperature 102.3 F H Temperature Source Temporal Pulse Rate 111 H 102 H Respiratory Rate 24 H 27 H Respiratory Effort Normal Respiratory Pattern Normal Blood Pressure 124/97 H 122/85 H Blood Pressure Mean 106 97 Pulse Ox 98 100 100 Oxygen Delivery Method Room Air Room Air Room Air 06/11/21 15:00 06/11/21 15:08 06/11/21 16:01 Temperature 99.1 F 99.1 F Temperature Source Temporal Temporal Pulse Rate 102 H 82 Respiratory Rate 21 H 15 Respiratory Effort Respiratory Pattern Blood Pressure 111/76 111/76 Blood Pressure Mean 87 87 Pulse Ox 98 98 Oxygen Delivery Method Room Air Room Air Weight Weight: 135 lb Body Mass Index (BMI) 22.4 Physical Exam Narrative Physical Examination: General: Awake, alert, oriented x 3 and cooperative, seated upright in the ED bed, fatigued and uncomfortable appearing Skin: Normal color, normal turgor, no icterus, no cyanosis. HEENT: AT/NC, EOMI, PERRLA, moderately dry MM, no carotid bruits or JVD noted. Lungs: Diffusely diminished, shallow breaths secondary to pain elicited with deep inspiratory effort, no rales, ronchi or wheezing. Heart: Mildly tachycardic with regular rhythm; no gallop, rub audible. Abdomen: Soft, NTTP, ND, mildly hyperactive BS, no HSM. Extremities: No cyanosis, no clubbing, left upper extremity edematous, peripheral pulses intact. Neurological: Patient awake, alert, oriented as noted, cognitive function intact; pupils equally reactive to light and accommodation, cranial nerves II-XII grossly normal, moving all 4 extremities however some limitation with left upper extremity given acute DVT, no focal deficits, strength moderately to severely global decrease secondary to acute presentation and illness. Psychiatric: Affect appears fatigued, uncomfortable appearing, tearful, underlying history of depression and anxiety. Results Lab / Micro Data Result Diagrams: 06/11/21 13:52 06/11/21 13:52 Labs: Laboratory Results - last 24 hr 06/11/21 13:52: WBC 10.2, RBC 4.88, Hgb 14.0, Hct 41.2, MCV 84.4, MCH 28.7, MCHC 34.0, RDW Std Deviation 37.3, RDW Coeff of Ming 12.5, Plt Count 370, MPV 9.3, Immature Gran % (Auto) 0.600, Neut % (Auto) 72.3 H, Lymph % (Auto) 15.4 L, [place] % (Auto) 11.0 H, Eos % (Auto) 0.5, Baso % (Auto) 0.2, Absolute Neuts (auto) 7.3, Absolute Lymphs (auto) 1.56, Nucleated RBC % 0 06/11/21 13:52: Sodium 137, Potassium 2.9 L, Chloride 101, Carbon Dioxide 29.0, Anion Gap 7, BUN 12, Creatinine 0.68, Estim Creat Clear Calc 105.89, Est GFR (MDRD) Af Amer 128, Est GFR (MDRD) Non-Af 106, BUN/Creatinine Ratio 17.6, Glucose 109 H, Calcium 9.0, Total Bilirubin 1.90 H, AST 32, ALT 54, Alkaline Phosphatase 102, Troponin I High Sens 4, Total Protein 8.2, Albumin 3.4, Globulin 4.8 H, Albumin/Globulin Ratio 0.7 L 06/11/21 13:52: Lactic Acid 1.4 06/11/21 13:52: Magnesium 2.5 06/11/21 15:03: Troponin I High Sens 5 Radiology Impression Chest X-Ray 06/11/21 13:28 IMPRESSION: Lungs are expanded with subtle interstitial and airspace opacifications in the lower lung ham more conspicuous than on the previous study. Follow-up recommended to show resolution Electronically Signed: Gavin Nicholson MD at 13:55 EDT , Service support , Chest CTA 06/11/21 13:47 IMPRESSION: Filling defects noted within the distal aspect of the right main pulmonary artery extending into branches leading to the right middle and right lower lobes. Patchy interstitial and airspace opacifications of both lung ham with dependent atelectasis. Differential as described above. Bilateral breast implants removed complication Pectus excavatum deformity N.B. : The above Results were Read Back by Gavin Nicholson MD to Jcarlos Casarez DO, and understanding confirmed on 06/11/2021 15:48:09 (ET). Electronically Signed: Gavin Nicholson MD at 15:51 EDT , Service support , ADDENDUM: 06/11/21 1558 IMPRESSION: Filling defects noted within the distal aspect of the right main pulmonary artery extending into branches leading to the right middle and right lower lobes. Patchy interstitial and airspace opacifications of both lung ham with dependent atelectasis. Differential as described above. Bilateral breast implants removed complication Pectus excavatum deformity N.B. : The above Results were Read Back by Gavin Nicholson MD to Jcarlos Casarez DO, and understanding confirmed on 06/11/2021 15:48:09 (ET). Electronically Signed: Gavin Nicholson MD at 15:51 EDT , Service support , Assessment & Plan Assessment/Plan (1) Deep vein thrombosis (DVT) of left upper extremity: QUALIFIERS: Affected thrombotic vein of extremity: unspecified vein of extremity Chronicity: acute Qualified Code(s): I82.622 - Acute embolism and thrombosis of deep veins of left upper extremity (2) Pulmonary embolism: QUALIFIERS: Pulmonary embolism type: unspecified Chronicity: acute Acute cor pulmonale presence: unspecified Qualified Code(s): I26.99 - Other pulmonary embolism without acute cor pulmonale PLAN: The patient is a 31 y/o F w/ PMHx: Anemia, Anxiety, MVP who presents to the [facility] ED on 06/11/21 with history of COVID illness, now on day #17 with sudden onset right sided pleuritic chest pain as well as complaint of redness to the LUE at sight of recent IV with prior ED visit ~ 1 week prior prompting evaluation. 1. Dyspnea, chest pain secondary to Acute R Sided Pulmonary Embolism with EKG changes: EKG with T wave inversions and depression V3-V6 new from 05/31/21 as well as in lead II and AVF. Will admit to PCU, maintain on cardiac telemetry, given EKG changes concern for strain although trop x 2 normal, will obtain ECHO, BNP, cycle cardiac enzymes and repeat EKG in AM and PRN. Will continue therapeutic heparin bolus and drip regimen with pending AM insurance oral regimen investigation. Will have as needed oral and IV pain regimen given discomfort. 2. LUE Acute Extensive DVT with edema, pain: Preliminary DVT LUE US w/ evidence of axillary, brachial, basilic and cephalic; however, final read still pending, will continue treatment as noted above, elevate LUE, once appropriate will benefit from compression sleeve to assist with postphlebitic syndrome. 3. Recent Hx Bilateral Pneumonia secondary to Acute Viral Syndrome, COVID-19 with Persistent infiltrates: Will maintain on oxygen with wean as tolerated to room air, PRN albuterol, HOB, IS parameters w/ pending sputum cultures, respiratory viral panel and urine antigens to assure no superimposed bacterial infection, will obtain D-dimer, procalcitonin, CRP, CPK, Ferritin, LDH, BNP, will continue supportive care, given no hypoxia will defer steroids and out of timeline for remedesivir treatment. 4. Hypokalemia: Admission K+ 2.9, magnesium normal 2.5, supplementation given, repeat level in AM. 5. Depression and anxiety: We will continue patient home escitalopram regimen. 6. DVT prophylaxis: SCDs, heparin drip as noted above. Charges/Coding Visit Charges Inpatient E&M: 87094 Init Hosp L3
[2021-06-11 16:13] LABS: Bacteria 0 SEEN /hpf (None Seen); Mucous, Urine 0 SEEN /hpf (<or=2+)
--- NOTE | 2021-06-11 16:19 | NURSING ---
PCU WHITE PE, DVT, ABNORMAL EKG
[2021-06-11 16:43] LABS: Color, Urine Yellow (Yellow); Glucose, Dipstick Normal (Normal); Ketone-Dipstick 5 mg/dl (Negative); Leukocyte Esterase-Dipstick 25 /ul (Negative); Nitrite-Dipstick Negative (Negative); Occult Blood-Urine 25 /ul (Negative); Protein-Dipstick 15 mg/dl (Negative); Specific Gravity, Urine 1.005 (1.002-1.030); Urine Bilirubin Dipstick Negative (Negative); Urine Clarity Clear (Clear); Urine Urobilinogen 1 mg/dl (Normal)
[2021-06-11 16:50] LABS: Squamous Epithelial Cells - UA 0-5 SEEN /hpf (5-10); White Blood Cells 0-5 SEEN /hpf (0-5)
[2021-06-11 16:51] LABS: Red Blood Cells-Urine 0-5 SEEN /hpf (0-5)
--- NOTE | 2021-06-11 16:51 | ECHOD_ITS ---
Reason For Study: ACUTE PE, DVT L ARM, ABNORMAL EKG Procedure This was a 2D Doppler, Color Flow transthoracic echocardiogram. The study was technically difficult. Exam performed portable in patient room. Left Ventricle Normal LV size. The estimated ejection fraction is 55 %. Normal diastology for age. No regional wall motion abnormalities noted. Right Ventricle Normal RV size. Normal systolic function. Atria Normal left atrium. Normal right atrium. No doppler evidence for ASD. Mitral Valve There is no mitral valve stenosis. No mitral valve insufficiency. Tricuspid Valve There is no tricuspid stenosis. Unable to estimate RV systolic pressure due to inadequate jet, pulmonary artery pressure probably normal. Aortic Valve The aortic valve is not well visualized. There is no aortic stenosis. No aortic valve insufficiency. Pulmonic Valve There is no pulmonic valvular stenosis. No pulmonic valve insufficiency. Great Vessels Normal aortic root. Pericardium/Pleural No pericardial effusion. MMode/2D Measurements & Calculations LVIDd: 3.8 cm IVSd: 0.89 cm Ao root diam: 2.6 cm LVIDs: 2.4 cm LVPWd: 0.82 cm RVDd: 2.6 cm FS: 36.7 % LAV(MOD-bp): 22.9 ml LVAd ap4: 27.2 cm2 SV(MOD-sp4): 51.1 ml LAV(MOD-bp) Indexed: 13.7 ml/m2 LVLd ap4: 7.9 cm LAV(MOD-sp2): 20.1 ml EDV(MOD-sp4): 79.0 ml LAV(MOD-sp4): 22.8 ml EDV(sp4-el): 79.5 ml LVAs ap4: 14.5 cm2 LVLs ap4: 6.2 cm ESV(MOD-sp4): 27.9 ml ESV(sp4-el): 28.9 ml EF(MOD-sp4): 64.7 % EF(sp4-el): 63.7 % SV(sp4-el): 50.6 ml LA A4 area: 11.9 cm2 LA dimension(2D): 2.3 cm RA A4 area: 12.2 cm2 Time Measurements MV dec time: 0.12 sec Doppler Measurements & Calculations MV E max stoney: 95.9 cm/sec Lat Peak E' Stoney: 17.6 cm/sec Med Peak E' Stoney: 15.7 cm/sec MV A max stoney: 91.7 cm/sec E/E' lat: 5.5 E/E' med: 6.1 MV E/A: 1.0 Ao V2 max: 134.4 cm/sec LV V1 max: 111.5 cm/sec PA V2 max: 93.0 cm/sec Ao max P.2 mmHg LV V1 max P.0 mmHg TR max stoney: 230.9 cm/sec TR max P.3 mmHg ECHO/Echo Complete Interpretation Summary The estimated ejection fraction is 55 %. No significant valvular abnormalities. Ordering Physician: Doris Godoy Referring Physician: LANCE HYDE Performed By: Maren Emerson RDCS
[2021-06-11 17:01] LABS: BNP,B-Type NATRIURETIC PEPTIDE 3.3 pg/mL (0-100)
[2021-06-11 17:02] LABS: International Normalized Ratio 1.3; Prothrombin Time (Protime)PT. 15.6 SECONDS (11.7-14.9)
[2021-06-11 17:03] LABS: Partial Thromboplast Time 38.1 Seconds (24.1-36.2)
[2021-06-11] MEDS: Heparin Injection (Vial) 5,000 UNIT/ML VIAL 4500 UNIT IV (17:25)
[2021-06-11] MEDS: HEPARIN/D5w 25,000 UNITS 25,000 UNITS/250 ML IV.SOLN. 10 UNITS IV (17:29)
[2021-06-11] MEDS: proCHLORPERazine 10 MG/2 ML Vial 5 MG IV (18:09)
[2021-06-11] MEDS: 0.9% Normal Saline 1,000 ML 100 ML IV (18:26)
[2021-06-11 18:55] LABS: Internal QC Validated? YES +Cl - CLEAR BKGD; Pregnancy, Urine Negative Negative
[2021-06-11 19:26] LABS: Troponin-I HS 6 pg/mL (3.0-54.0)
--- NOTE | 2021-06-11 19:32 | PCS.PANDOC ---
PANDEMIC DOCUMENTATION INITIATED: Date: 04/21/2021 Time: 190
[2021-06-12] VITALS (7 sets, daily range): BP systolic 108–124; BP diastolic 72–80; PULSE 75–115; RESP 16–20; TEMP 37–37.9; O2SAT 91–98
[2021-06-12 00:59] LABS: Partial Thromboplast Time 99.7 Seconds (24.1-36.2)
[2021-06-12] MEDS: Morphine 4 MG/ML Syringe IV (01:26)
[2021-06-12] MEDS: 0.9% Normal Saline 1,000 ML 100 ML IV (03:35)
[2021-06-12] MEDS: oxyCODONE 5 MG Tablet PO ×2 (05:05→10:57)
--- NOTE | 2021-06-12 07:34 | NURSING ---
Heparin gtt saying complete in NOV at the start of this shift. There is still medication in current bag so heparin continued at 800 units per hour. New bag will be scanned when current bag is complete.
[2021-06-12 08:07] LABS: Absolute Lymphocyte Count 1.26 X10^3/uL (0.83-4.51); Absolute Neutrophil Count 6.3 X10^3/uL (2.0-7.7); Basophil# 0.01 X10^3/uL; Basophil% 0.1 % (0-1); Eosinophil# 0.09 X10^3/uL; Eosinophils% 1.1 % (0-5); Hematocrit 37.7 % (37-47); Hemoglobin 12.6 g/dL (12.0-15.0); Lymphocyte # 1.26 X10^3/ul (0.83-4.51); Lymphocyte % 14.8 % (19-41); Mean Corp Hgb Conc 33.4 g/dL (32-36); Mean Corpuscular Hgb 28.6 pg (27.0-32.0); Mean Corpuscular Volume 85.5 fL (81-99); Mean Platelet Vol. 9.1 fl (6.2-12.0); Monocyte# 0.78 X10^3/uL; Monocyte% 9.2 % (0-10); NRBC Flagged by Analyzer 0 % (0-5); Neutrophil # 6.33 X10^3/uL (2.7-7.7); Neutrophil % 74.3 % (47-70); Platelet Count 282 K/mm3 (150-450); RBC Distribution Width CV 12.4 % (11.6-14.6); RBC Distribution Width SD 38.5 fl (35.1-43.9); Red Blood Count 4.41 M/mm3 (4.2-5.4); White Blood Count 8.5 K/mm3 (4.4-11.0)
[2021-06-12 08:18] LABS: Partial Thromboplast Time 59.2 Seconds (24.1-36.2)
[2021-06-12 08:23] LABS: ALB/GLOB Ratio 0.6 RATIO (0.9-2.4); AST(SGOT) 20 U/L (15-37); Alanine Aminotransfer ALT/SGPT 38 U/L (13-56); Albumin, Serum 2.6 g/dL (3.2-5.0); Alkaline Phosphatase 82 U/L (45-117); Anion Gap 5 (5-15); BUN 5 mg/dL (7-18); BUN/Creat Ratio 10.9 RATIO (10-20); Chloride 105 mmol/L (98-107); Creatinine, Serum 0.46 mg/dL (0.55-1.02); EST Glomerular Filtration Rate 166 mL/min (>60); Est Glom Filt Rate - Afr Amer 201 mL/min (>60); Estimated Creatinine Clearance 156.53 ml/min; Globulin 4.3 g/dL (2.2-4.2); Glucose 95 mg/dL (74-106); Protein, Total 6.9 g/dL (6.4-8.2); Sodium Level 137 mmol/L (136-145)
--- NOTE | 2021-06-12 10:45 | CASEMGMT ---
YUMIKO ROSA assessment: Face to Face with patient for initial transition planning/care coordination assessment. YUMIKO ROSA introduced self and role at [facility], pt voices understanding and consents to assessment. Pt is sitting up in bed in no distress on room air. Pt is A/Ox4 and answers all questions appropriately. Care providers, pharmacy, and demographics verified. Presentation: Pt states Day 17 of COVID and c/o right sided chest pain and left arm pain, redness Admitting dx: Acute LUE DVT, R sided PE PCP: [facility] Specialists: Pt states no current specialists. Preferred [facility]acy: [facility] Insurance: [employer] Prescription Benefit: [employer] Living Will/HPOA: Pt does not have LW/HPOA and declines AD info. LNOK: Jose Queen, Living Arrangements: Pt states lives with /kids in 1 story home and states no concerns at home. Pt is independent with ADL's. Transportation: Pt states drives self and states no transportation concerns. DME/HHC: Pt states no current DME or need for any further DME. Pt states no hx of HHC or SNF. Pt states concerns with going home because she is in pain and unsure if she will be able to swallow the Eliquis pills. Dr. Bolden and Sukhwinder CALDERON updated on pt concerns and both into room to speak with pt. 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 Pt states does not smoke cigarettes or drink ETOH. Pt states no further concerns/needs. CM to follow for Eliquis cost/co-pay and any further discharge planning/needs. Pt provided Eliquis $10 co-pay card with instructions, voices understanding. Advised pt to ask for CM if any further questions/concerns/needs arise, voices understanding. Pt Goal: Home Plan: [place] YUMIKO ROSA
[2021-06-12] MEDS: Ondansetron 4 MG/2 ML Vial IV (11:04)
[2021-06-12] MEDS: 0.9% Saline Lock 10 ML Syringe IV (11:05)
[2021-06-12] MEDS: APIXABAN 5 MG TABLET 10 MG PO (11:28)
--- NOTE | 2021-06-12 11:47 | PCM.DC.SUM ---
Providers Date of Admission: 06/11/21 Primary Care Physician: DEMI Denney Reason For Visit: ACUTE LUE DVT, ACUTE R SIDE PULMNARY Diagnosis Discharge Diagnosis (1) Deep vein thrombosis (DVT) of left upper extremity: Status: Acute Code(s): I82.622 - Acute embolism and thrombosis of deep veins of left upper extremity Qualifiers: Affected thrombotic vein of extremity: unspecified vein of extremity Chronicity: acute Qualified Code(s): I82.622 - Acute embolism and thrombosis of deep veins of left upper extremity (2) Pulmonary embolism: Status: Acute Code(s): I26.99 - Other pulmonary embolism without acute cor pulmonale Qualifiers: Pulmonary embolism type: unspecified Chronicity: acute Acute cor pulmonale presence: unspecified Qualified Code(s): I26.99 - Other pulmonary embolism without acute cor pulmonale Medications at Discharge Home Medications metoclopramide HCl 10 mg PO 4X/DAY PRN #10 tab 05/29/21 acetaminophen 500 mg PO DAILY PRN 06/11/21 dexamethasone 4 mg PO DAILY 06/11/21 escitalopram oxalate 20 mg PO DAILY 06/11/21 apixaban [Eliquis DVT-PE Treat 30D Start] 5 mg PO UD #74 tab 06/12/21 apixaban [Eliquis] 5 mg PO BID #120 tab 06/12/21 Hospital Course Summary of Care Provided Minutes Spent on Discharge: 35 Hospital Course: Patient is a 31-year-old lady who presented with right-sided pleuritic chest pain. 1. Covid induced hypercoagulable state ?Patient was diagnosed with right-sided pulmonary embolism as well as DVT. CTA of the chest obtained Filling defects noted within the distal aspect of the right main pulmonary artery extending into branches leading to the right middle and right lower lobes. Venous duplex demonstrated Acute deep venous thrombosis left axillary and brachial veins Superficial thrombophlebitis lleft cephalic and basilic veins. Patient was started on systemic anticoagulation. Patient did not require oxygen. Patient was a started a day after his admission with Eliquis 10 mg p.o. twice daily for 7 days and subsequently 5 mg p.o. twice daily. Prescription was written for 90 days. Patient was instructed to call her primary care provider within a week for subsequent follow-up Physical Exam Narrative GENERAL: cooperative HEENT: Atraumatic; EYES; Anicteric, Normal Conjunctiva NECK; supple, normal thyroid, RESPIRATORY: Diminished to auscultation CARDIOVASCULAR: Regular S1 S2, GI: soft, normoactive bowel sounds, : No Renal angle tenderness; EXTREMITIES: No edema, no clubbing, MUSCULOSKELETAL: no muscle waisting NEURO: Awake; no lateralizing signs. SKIN: No Rash PSYCH; Flat affect Weight / BMI Weight Weight: 61.4 kg Body Mass Index (BMI) 22.4 ABG / Lab / Microbiology Data Result Diagrams: 06/12/21 07:55 06/12/21 07:55 Laboratory: Laboratory Results - last 24 hr 06/11/21 13:52: WBC 10.2, RBC 4.88, Hgb 14.0, Hct 41.2, MCV 84.4, MCH 28.7, MCHC 34.0, RDW Std Deviation 37.3, RDW Coeff of Ming 12.5, Plt Count 370, MPV 9.3, Immature Gran % (Auto) 0.600, Neut % (Auto) 72.3 H, Lymph % (Auto) 15.4 L, [place] % (Auto) 11.0 H, Eos % (Auto) 0.5, Baso % (Auto) 0.2, Absolute Neuts (auto) 7.3, Absolute Lymphs (auto) 1.56, Nucleated RBC % 0 06/11/21 13:52: Sodium 137, Potassium 2.9 L, Chloride 101, Carbon Dioxide 29.0, Anion Gap 7, BUN 12, Creatinine 0.68, Estim Creat Clear Calc 105.89, Est GFR (MDRD) Af Amer 128, Est GFR (MDRD) Non-Af 106, BUN/Creatinine Ratio 17.6, Glucose 109 H, Calcium 9.0, Total Bilirubin 1.90 H, AST 32, ALT 54, Alkaline Phosphatase 102, Troponin I High Sens 4, Total Protein 8.2, Albumin 3.4, Globulin 4.8 H, Albumin/Globulin Ratio 0.7 L 06/11/21 13:52: Lactic Acid 1.4 06/11/21 13:52: Magnesium 2.5 06/11/21 13:52: B-Natriuretic Peptide 3.3 06/11/21 15:03: Troponin I High Sens 5 06/11/21 16:08: Urine Color Yellow, Urine Clarity Clear, Urine pH 7.0, Ur Specific [place] 1.005, Urine Protein 15 H, Urine Glucose (UA) Normal, Urine Ketones 5 H, Urine Occult Blood 25 H, Urine Nitrite Negative, Urine Bilirubin Negative, Urine Urobilinogen 1 H, Ur Leukocyte Esterase 25 H, Urine RBC 0-5 SEEN, Urine WBC 0-5 SEEN, Ur Squamous Epith Cells 0-5 SEEN, Urine Bacteria 0 SEEN, Urine Mucus 0 SEEN 06/11/21 16:22: PT 15.6 H, INR 1.3, APTT 38.1 H 06/11/21 16:22: Urine Test Negative 06/11/21 18:55: Troponin I High Sens 6 06/12/21 00:40: APTT 99.7 H* 06/12/21 07:55: WBC 8.5, RBC 4.41, Hgb 12.6, Hct 37.7, MCV 85.5, MCH 28.6, MCHC 33.4, RDW Std Deviation 38.5, RDW Coeff of Ming 12.4, Plt Count 282, MPV 9.1, Immature Gran % (Auto) 0.500, Neut % (Auto) 74.3 H, Lymph % (Auto) 14.8 L, [place] % (Auto) 9.2, Eos % (Auto) 1.1, Baso % (Auto) 0.1, Absolute Neuts (auto) 6.3, Absolute Lymphs (auto) 1.26, Nucleated RBC % 0 06/12/21 07:55: Sodium 137, Potassium 3.0 L, Chloride 105, Carbon Dioxide 27.0, Anion Gap 5, BUN 5 L, Creatinine 0.46 L, Estim Creat Clear Calc 156.53, Est GFR (MDRD) Af Amer 201, Est GFR (MDRD) Non-Af 166, BUN/Creatinine Ratio 10.9, Glucose 95, Calcium 8.0 L, Total Bilirubin 1.60 H, AST 20, ALT 38, Alkaline Phosphatase 82, Total Protein 6.9, Albumin 2.6 L, Globulin 4.3 H, Albumin/Globulin Ratio 0.6 L 06/12/21 07:55: APTT 59.2 H Radiography Diagnostic Testing: Radiology Impression Chest X-Ray 06/11/21 13:28 IMPRESSION: Lungs are expanded with subtle interstitial and airspace opacifications in the lower lung ham more conspicuous than on the previous study. Follow-up recommended to show resolution Electronically Signed: Gavin Nicholson MD at 13:55 EDT , Service support , Chest CTA 06/11/21 13:47 IMPRESSION: Filling defects noted within the distal aspect of the right main pulmonary artery extending into branches leading to the right middle and right lower lobes. Patchy interstitial and airspace opacifications of both lung ham with dependent atelectasis. Differential as described above. Bilateral breast implants removed complication Pectus excavatum deformity N.B. : The above Results were Read Back by Gavin Nicholson MD to Jcarlos Casarez DO, and understanding confirmed on 06/11/2021 15:48:09 (ET). Electronically Signed: Gavin Nicholson MD at 15:51 EDT , Service support , ADDENDUM: 06/11/21 1558 IMPRESSION: Filling defects noted within the distal aspect of the right main pulmonary artery extending into branches leading to the right middle and right lower lobes. Patchy interstitial and airspace opacifications of both lung ham with dependent atelectasis. Differential as described above. Bilateral breast implants removed complication Pectus excavatum deformity N.B. : The above Results were Read Back by Gavin Nicholson MD to Jcarlos Casarez DO, and understanding confirmed on 06/11/2021 15:48:09 (ET). Electronically Signed: Gavin Nicholson MD at 15:51 EDT , Service support , Venous Doppler Study 06/11/21 13:47 Interpretation Summary Acute deep venous thrombosis left axillary and brachial veins Superficial thrombophlebitis lleft cephalic and basilic veins Abreviated Covid 19 protocol Ordering Physician: Jcarlos Casarez Referring Physician: Rubens Benitez Performed By: Aleksandra Davila RDCS, RVT ? D/C Instructions Discharge Diet: No restrictions Discharge Activity: Return to Normal Activity Call your doctor if you observe: Fever of 101 or Higher, Shortness of breath, Fainting spells and Chest pain Meaningful Use Info Meaningful Use Diagnoses (Choose all that apply): VTE VTE Anticoag overlap given w/in hospital stay or rx'd at dc?: No Pt receive overlap for 5 days?: No Reason overlap not ordered, prescribed, or given for 5 days: Treatment Not Indicated Discharge Plan Admission Admit Date/Time: 06/11/21 16:16 Attending Provider: Adonis Bolden Primary Care Provider: Rubens Benitez [employer] Instructions Patient Instructions: DVT/PE Discharge instruction sheet Discharge Orders/Prescriptions Prescriptions: New Eliquis DVT-PE Treat 30D Start 5 mg (74 tabs) tablets,dose pack 5 mg PO UD Qty: 74 RF: 0 Eliquis 5 mg tablet 5 mg PO BID Qty: 120 RF: 0 Continued metoclopramide HCl 10 MG tablet 10 mg PO 4X/DAY PRN (Reason: Headache) Qty: 10 RF: 0 acetaminophen 500 mg Tablet 500 mg PO DAILY PRN (Reason: PAIN AND FEVER) RF: 0 dexamethasone 4 mg tablet 4 mg PO DAILY RF: 0 escitalopram oxalate 20 mg tablet 20 mg PO DAILY RF: 0 Referrals / Follow Up: Rubens Benitez [employer], [employer]-C [Primary Care Provider] - In 1 Week Disposition Disposition (needs filled in before D/C Order can be placed): Home, Self Care Charges/Coding Visit Charges Inpatient E&M: 04043 Disch Hosp
--- NOTE | 2021-06-12 13:04 | CASEMGMT ---
Addendum entered by Ivonne Nicole 06/12/21 14:46: Per Rochelle, Eliquis is still stating prior auth needed. Call back to Mala at [facility] prior auth dept and they state it has gone through again but this RN CM placed them on hold and had Herbert, [facility] pharmacist, run again and it's still not going through. Mala then spoke with Herbert and then this RN MOE again and finally, [facility] pharmacy was able to run med through at this time. Pt ready for discharge. Eliquis 30 day free card was used for starter pack and then pt can use co-pay card for subsequent months. Benedict CALDERON CM Addendum entered by Ivonne iNcole 06/12/21 13:47: Call to Melba at [facility] prior auth and prior auth obtained for Eliquis at this time. Case # [id number]. Call to [facility] retail pharmacy to update, Rochelle voices understanding, but states Eliquis still states prior auth needed. Rochelle states will try again in a bit, if still does not go through then this RN CM will need to call prior auth dept back. CM to follow. Benedict CALDERON CM Original Note: Pt now requests that Eliquis script be filled at [facility] pharmacy so she can take med home with her. Call to Shirley at [facility] retail pharmacy and this RN CM asked her to get script from Lauren in [place] and phone number provided. [facility] retail pharmacy to call this RN MOE with co-pay/coverage once obtained. CM to follow. Benedict CALDERON CM
--- NOTE | 2021-06-12 15:04 | CHAPLAIN ---
Type of Pastoral Visit _x__ Initial Visit ___ Follow-up Visit ___ On-call Visit ___ General Patient Visit ___ Spiritual Assessment ___ Family Conference ___ Bereavement ___ Rapid Response ___ Code Blue ___ Other (describe below) Pastoral Care Referral From _x__ Patient ___ Family ___ Nurse ___ Physician ___ Supervisor [employer] ___ Crime Prevention Worker ___ Other (describe below) Sacrament/Intervention _x__ Active listening ___ Anointing ___ Denominational ___ Bereavement ___ Communion ___ Kaylee exploration ___ ___ Life review _x__ Prayer ___ Reconciliation ___ Sacrament of Sick _x__ Supportive presence ___ Wedding ___ Other (describe below) Pastoral Comments
== END 2021-06-12 16:55 | disposition home or self-care (01) | DRG 176 ==
LOC: ED 14:42 → PCU 17:08
PROVIDERS: Admitting Provider Family Medicine; Emergency Provider Student in an Organized Health Care Education/Training Program; PCP Nurse Practitioner Family; Visit Provider Internal Medicine
DX: I26.99 Other pulmonary embolism without acute cor pulmonale (principal); I82.622 Acute embolism and thrombosis of deep veins of left upper extremity; D68.8 Other specified coagulation defects; U09.9 Post COVID-19 condition, unspecified; I80.8 Phlebitis and thrombophlebitis of other sites; I34.1 Nonrheumatic mitral (valve) prolapse; E87.6 Hypokalemia; F32.9 Major depressive disorder, single episode, unspecified; F41.9 Anxiety disorder, unspecified; Z79.01 Long term (current) use of anticoagulants; Z79.899 Other long term (current) drug therapy
CPT/HCPCS: 36415; 71045; 71275; 80053; 81001; 81025; 83605; 83735; 83880; 84484; 85025; 85610; 85730; 87040; 87086; 87088; 93005; 93306; 93971; 97802; 99251; 99285; J7030; Q9967; A4216; G0463; J2405

== ENCOUNTER 2023-02-28 15:15 | Emergency (ER) | payer OTHER, SELFPAY ==
[2023-02-28 15:16] VITALS: BP 145/106; PULSE 110; RESP 18; TEMP 36.9; O2SAT 100
--- NOTE | 2023-02-28 15:34 | CT_ITS ---
STUDY: CT Abdomen And Pelvis W/ Contrast Injection 02/28/2023 6:37 PM REASON FOR EXAM: Female, 33 years old. RUQ X 3 WKS, RADIATES TO BACK, NAUSEA, DECREASED APPETITE PAIN RUQ pain -- IV PO Contrast TECHNIQUE: Transaxial images were obtained with oral contrast, and Oral and IV Gastrografin and amp; 100mL Isovue-370 intravenous contrast. Individualized dose optimization techniques were used for this CT. COMPARISON: None. FINDINGS: The visualized lung bases are unremarkable. The visualized portions of the heart are within normal limits. Pectus Deformity of the chest. Partially visualized right breast. 3.5 mm hypodensity in the right lobe of the liver. This is likely a cyst. A follow up required. There are multiple gallstones. Unremarkable spleen. Unremarkable pancreas. Unremarkable bilateral adrenal glands. No acute findings of the right kidney. No acute findings of the left kidney. Unremarkable visualized stomach. Unremarkable small intestine. Unremarkable colon. The appendix is visualized and appears unremarkable. There are no acute findings of the abdominal aorta. Unremarkable inferior vena cava. Subcentimeter mesenteric lymph nodes. Unremarkable urinary bladder. Unremarkable abdominal wall. Unremarkable osseous structures. CT/Abdomen/Pelvis WITH Contrast IMPRESSION: (NOT LISTED IN ORDER OF SIGNIFICANCE) There are multiple gallstones. Other findings as above. Electronically Signed: Joshua Carmona MD at 18:39 EDT ,
--- NOTE | 2023-02-28 15:35 | EX.ED.DYSGE1 ---
HPI History of Present Illness Chief Complaint: Abd Pain Informant: patient Onset/Context/Timing Onset: Weeks Context: Gradual Onset Timing: Waxes and wanes Current Severity: Mild Maximum Severity: Moderate Narrative Narrative: Patient presents with a week or 2 history of right upper quadrant abdominal pain. She states she will get pain in the right upper quadrant that will sometimes wrap around to the right CVA region. She states that she has early satiety and some nausea. She has not had vomiting. She has not had fever or chills. She states the doctor that she used to see has left and she does not have a primary care doctor at this time. [facility] Medical History Anemia Anxiety Chest pain DVT (deep venous thrombosis) GERD (gastroesophageal reflux disease) MVP (mitral valve prolapse) Non-smoker Threatened in early Home Medications Zyrtec 02/28/23 [History Last Taken Unknown] Allergy/AdvReac Type Severity Reaction Status Date / Time Penicillins Allergy Unknown Verified 02/28/23 15:16 Family History Mother Hypertension Father Hypertension Surgical History History of breast surgery History of tonsillectomy Social History household members: spouse and children Smoking Status: Never smoker alcohol intake: never substance use type: does not use ROS ROS ED Constitutional Constitutional ED: Denies chills or fever(s) Eyes Eyes: Denies discharge from eye(s) ENT ENT ED: Denies discharge from eye(s), rhinorrhea or sore throat Cardiovascular Cardiovascular: Denies chest pain or palpitations Respiratory/Chest Respiratory/Chest: Denies cough or dyspnea Gastrointestinal Gastrointestinal: Reports abdominal pain and nausea; Denies diarrhea or vomiting Genitourinary Genitourinary ED: Denies difficulty urinating or dysuria Musculoskeletal Musculoskeletal: Reports back pain; Denies extremity pain Integumentary Denies Abrasions or rash Neurologic Neurologic: Denies headache(s) or weakness Psychiatric Psychiatric: Denies anxiety or depression Allergic/Immunologic Allergic/Immunologic ED: Denies lip swelling or urticaria EXAM Physical Exam Const Vital Signs: 02/28/23 15:16 02/28/23 17:43 Temperature 98.4 F Temperature Source Temporal Pulse Rate 110 H 74 Respiratory Rate 18 14 Blood Pressure 145/106 H 117/73 Blood Pressure Mean 119 87 Pulse Ox 100 100 Oxygen Delivery Method Room Air Positive well nourished and well developed General Appearance ED: well developed HEENT Reports normocephalic and head/scalp atraumatic Eyes PERRL and EOMs intact bilaterally Neck supple Chest Wall inspection of chest normal and palpation of chest normal Resp normal respiratory effort and clear to auscultation bilaterally Cardio regular rate and regular rhythm GI GI Narrative: Abdomen soft with mild tenderness in the right upper quadrant. No guarding or rebound. Palpation: soft Back/Spine no CVA tenderness Extremity normal to inspection Neuro oriented x3 and no sensory deficits noted Sensorium / Orientation: alert Motor Exam: strength 5/5 throughout Psych mental status grossly normal Skin no rashes or lesions noted MDM MDM MDM Narrative Medical decision making narrative: Patient given Toradol and IV fluids. Labwork obtained to evaluate for leukocytosis, anemia, and electrolyte derangement. CT scan of the abdomen pelvis obtained to evaluate for possible gallbladder disease versus kidney stone versus bowel issue. Lab Data Attestation: I reviewed the patient's lab results. Labs: Laboratory Results - last 24 hr 02/28/23 02/28/23 02/28/23 16:05 16:05 16:05 WBC 8.0 RBC 5.16 Hgb 14.7 Hct 44.3 MCV 85.9 MCH 28.5 MCHC 33.2 RDW Std Deviation 39.4 RDW Coeff of Ming 12.6 Plt Count 310 MPV 10.0 Immature Gran % (Auto) 0.300 Neut % (Auto) 67.2 Lymph % (Auto) 25.8 [place] % (Auto) 5.2 Eos % (Auto) 1.0 Baso % (Auto) 0.5 Absolute Neuts (auto) 5.4 Absolute Lymphs (auto) 2.05 Nucleated RBC % 0 Sodium 137 Potassium 3.5 Chloride 104 Carbon Dioxide 26.0 Anion Gap 7 BUN 18 Creatinine 0.80 Estim Creat Clear Calc 84.34 Est GFR (MDRD) Af Amer 105 Est GFR (MDRD) Non-Af 87 BUN/Creatinine Ratio 22.5 H Glucose 102 Calcium 9.7 Total Bilirubin 0.90 Direct Bilirubin 0.22 AST 15 ALT 18 Alkaline Phosphatase 68 Total Protein 8.4 H Albumin 4.3 Globulin 4.1 Lipase 109 H Serum , Qual NEGATIVE Radiography Diagnostic Testing: Clinical Impression(s) from Imaging Studies Abdomen/Pelvis CT 02/28/23 15:34 IMPRESSION: (NOT LISTED IN ORDER OF SIGNIFICANCE) There are multiple gallstones. Other findings as above. Electronically Signed: Joshua Carmona MD at 18:39 EDT , Treatment and Re-Evaluation :: CBC was normal white count at 8 with normal differential. Hemoglobin normal at 14.7. Chemistry studies normal. LFTs are normal and lipase is only minimally elevated at 109. CT scan of the abdomen and pelvis reveals multiple gallstones. No pericholecystic fluid noted at this time. Clinically she does not have evidence of acute cholecystitis. We did discuss gallstones and I do believe this is likely the cause of her intermittent pain. She will be referred to surgery for outpatient evaluation and possible cholecystectomy. Return instructions are provided. She is comfortable with the plan Discharge Plan Triage Chief Complaint: Abd Pain ED Provider: Mary Ellen Spencer Dx/Rx/DC Orders Clinical Impression: Gallstones Instructions: ED Gallstones with Biliary Colic Prescriptions: [facility] Provider: Care Physician,No Primary Referrals: Carolina Márquez MD [Med Staff - Active Staff] - 1 Week NOT,DEFINED [Non-Staff] - Disposition Disposition: Home, Self Care
[2023-02-28] MEDS: Ketorolac 30 MG/ML Syringe IV (16:02)
[2023-02-28] MEDS: 0.9% Normal Saline 1,000 ML 150 ML IV (16:03)
[2023-02-28 16:22] LABS: Absolute Lymphocyte Count 2.05 X10^3/uL (0.83-4.51); Absolute Neutrophil Count 5.4 X10^3/uL (2.0-7.7); Basophil# 0.04 X10^3/uL; Basophil% 0.5 % (0-1); Eosinophil# 0.08 X10^3/uL; Hematocrit 44.3 % (37-47); Hemoglobin 14.7 g/dL (12.0-15.0); Lymphocyte # 2.05 X10^3/ul (0.83-4.51); Lymphocyte % 25.8 % (19-41); Mean Corp Hgb Conc 33.2 g/dL (32-36); Mean Corpuscular Hgb 28.5 pg (27.0-32.0); Mean Corpuscular Volume 85.9 fL (81-99); Monocyte# 0.41 X10^3/uL; Monocyte% 5.2 % (0-10); NRBC Flagged by Analyzer 0 % (0-5); Neutrophil # 5.36 X10^3/uL (2.7-7.7); Neutrophil % 67.2 % (47-70); Platelet Count 310 K/mm3 (150-450); RBC Distribution Width CV 12.6 % (11.6-14.6); RBC Distribution Width SD 39.4 fl (35.1-43.9); Red Blood Count 5.16 M/mm3 (4.2-5.4)
[2023-02-28 16:32] LABS: Internal QC Validated? YES +Cl - CLEAR BKGD; Pregnancy, Serum, hCG Quali. NEGATIVE Negative
[2023-02-28 16:39] LABS: AST(SGOT) 15 U/L (15-37); Alanine Aminotransfer ALT/SGPT 18 U/L (13-56); Albumin, Serum 4.3 g/dL (3.2-5.0); Alkaline Phosphatase 68 U/L (45-117); Anion Gap 7 (5-15); BUN 18 mg/dL (7-18); BUN/Creat Ratio 22.5 RATIO (10-20); Bilirubin, Direct 0.22 mg/dL (0.00-0.30); Calcium,Total 9.7 mg/dL (8.5-10.1); Chloride 104 mmol/L (98-107); EST Glomerular Filtration Rate 87 mL/min (>60); Est Glom Filt Rate - Afr Amer 105 mL/min (>60); Estimated Creatinine Clearance 84.34 ml/min; Globulin 4.1 g/dL (2.2-4.2); Glucose 102 mg/dL (74-106); Lipase 109 U/L (13-75); Potassium 3.5 mmol/L (3.5-5.1); Protein, Total 8.4 g/dL (6.4-8.2); Sodium Level 137 mmol/L (136-145)
[2023-02-28 17:43] VITALS: BP 117/73; PULSE 74; RESP 14; O2SAT 100
[2023-02-28 19:02] VITALS: BP 136/78; PULSE 78; RESP 16; O2SAT 100
== END 2023-02-28 19:05 | disposition home or self-care (01) ==
PROVIDERS: Emergency Provider Emergency Medicine; Visit Provider Emergency Medicine
DX: K80.20 Calculus of gallbladder without cholecystitis without obstruction (principal); Z86.718 Personal history of other venous thrombosis and embolism
CPT/HCPCS: 74177; 80048; 80076; 83690; 84703; 85025; 96361; 96374; 99282; J7030; Q9967; A4216

== ENCOUNTER 2023-03-10 11:16 | Day surgery (SDC) | payer OTHER, SELFPAY ==
[2023-03-10] VITALS (8 sets, daily range): BP systolic 115–147; BP diastolic 64–96; PULSE 61–98; RESP 12–16; TEMP 36.6–37.5; O2SAT 95–100; BMI 19.8
[2023-03-10 11:36] LABS: Internal QC Validated? YES +Cl - CLEAR BKGD; Pregnancy, Urine Negative Negative
--- NOTE | 2023-03-10 11:50 | RAD_ITS ---
STUDY: INTRAOPERATIVE CHOLANGIOGRAM. REASON FOR EXAM: Female, 33 years old. Laparoscopic cholecystectomy. FLUOROSCOPY TIME (if supplied): ( 7.6 seconds ) minutes/seconds. 1.59 mGy TECHNIQUE: An intraoperative cholangiogram was performed by the surgeon. Imaging was submitted. COMPARISON: None. FINDINGS: The intra and extrahepatic biliary ducts are unremarkable. No intraluminal filling defects are seen. There is free flow of contrast into the duodenum. RAD/Cholangiogram/ O R,Initial IMPRESSION: Unremarkable intraoperative cholangiogram. Electronically Signed: Shahab Abbott MD at 12:38 EDT ,
--- NOTE | 2023-03-10 11:50 | HP.PCM_ITS ---
History and Physical Date of Admission: 03/10/23 Intake Vital Signs 02/28/2315:16 03/02/2308:05 Height 5 ft 5 in 5 ft 5 in Weight: 120 lb 121 lb 8 oz BMI 20.0 20.2 BP 145/106 H 122/81 H Blood Pressure Location Rt brachial Position Sitting Respiration 18 18 Pulse 110 H 72 Pulse Source Monitor Temp 98.4 F 98.0 F Temp Source Temporal Temporal Pulse Oximetry (%) 100 99 Oxygen Delivery Method room air Intake Visit Reasons: ED 02/28 GALLBLADDER Chief Complaint: Gallstones Embroidery Specialist Required: No Accompanied by: Is patient in pain?: No Allergies Penicillins Allergy (Verified 03/02/23 08:07) Unknown Medications cetirizine 10 mg tablet (Zyrtec) 10 mg PO DAILY 03/02/23 [History Confirmed 03/02/23] PFSH Medical History Anemia Anxiety Chest pain DVT (deep venous thrombosis) Gallstones GERD (gastroesophageal reflux disease) MVP (mitral valve prolapse) Nausea Non-smoker RUQ pain Threatened in early Surgical History (Updated 03/02/23 @ 08:05 by Pepper Bettencourt) History of bilateral breast implants History of breast surgery History of tonsillectomy Family History (Updated 03/02/23 @ 08:05 by Pepper Bettencourt) Mother HypertensionFather Hypertension AsthmaSon Asthma Social History household members: spouse and children Smoking Status: Never smoker alcohol intake: never substance use type: does not use HPI HPI HPI: Patient is a 33-year-old female who has been having right upper quadrant pain for the last few weeks. Patient reports the pain is in the right upper quadrant and radiates to the back. She says she also has associated nausea. She denies fevers or chills or acute pain at this time. ROS General General: Yes weight change and fatigue; No appetite, colon cancer, breast cancer or weakness HEENT HEENT: No difficulty swallowing, eye injury, eye surgery, swollen glands or hoarseness Endo Endocrine: No thyroid disease, diabetes mellitus, thyroid cancer, Hair loss, heat intolerance or cold intolerance Breast Breast: No left breast lump, right breast lump, nipple discharge, breast pain, abnormal mammogram, abnormal US or breast enlargement Musc Musculoskeletal: No back problems, arthritis, rheumatoid arthritis, gout or joint pain Cardio Cardiovascular: No murmur, pacemaker, heart disease, atrial fibrillation, high blood pressure, heart attack, heart stent, palpitations, shortness of breat with exertion or chest pain Psych Psychiatric: Yes anxiety; No depression or hearing voices Resp Respiratory: No shortness of breath, No sleep apnea, No cough, No COPD, No asthma, No emphysema and No wheezing Gastro Gastrointestinal: Yes abdominal pain, Yes nausea or vomiting, No diarrhea, No constipation, No blood in stool, Yes acid reflux, No hemorrhoids, No ulcers, Yes gallbladder problem and No black,tarry stools Tony Hematologic: No blood thinners, No blood disorders, No bleeding, No anemia and No blood clots Neuro Neurologic: No system reviewed and no additional complaints, except as documented, No as per HPI, No abnormal gait, No abnormal hearing, No abnormal movements, No abnormal speech, No behavioral changes, No burning sensations, No confusion, No convulsions, No disequilibrium, No dizziness, No localized weakness, No frequent falls, No headache(s), No lack of coordination, No loss of vision, No memory loss, No numbness, No other visual disturbances, No radicular pain, No restless legs, No sensory deficit, No syncope, No tingling, No tremor(s), No weakness and No other Exam Const General: cooperative Orientation: alert and oriented x3 HENMO Head: normal to inspection Neck Neck: normal visual inspection and full ROM Chest Chest palpation & inspection: normal inspection of the chest Resp Effort & Inspection: normal respiratory effort Auscultation: clear to auscultation bilaterally Cardio Rate: regular rate Rhythm: regular rhythm GI Inspection: non-distended Palpation: soft and nontender Skin General: no rashes or lesions noted Neuro General: patient alert and patient oriented x3 Extrem General: full ROM Psych Appearance: grossly normal Mental Status: mental status grossly normal Assessment and Plan Assessment and Plan (1) Gallstones: Status: Acute Plan: The patient has been having right upper quadrant pain. The patient was in the emergency room and had a CT scan that showed several gallstones. I recommended laparoscopic cholecystectomy. I discussed the procedure in detail with the patient. I discussed the risks, benefits, and alternatives of the procedure. I discussed the risks including but not limited to bleeding, infection, injury to surrounding organs such as the liver, bile duct, bowels. I did discuss the possibility of having to convert to an open procedure as well as the possibility that if any injuries occurred this may necessitate further surgery at a tertiary care center. Jd Gamino MD Pager: [facility] [address] [place] [address], [address] [place] [address] Office: I have examined the patient and the H&P has been reviewed. There are no clinical changes since date of exam.
[2023-03-10] MEDS: Lactated Ringers 1,000 ML 15 ML IV ×2 (11:51→12:20)
[2023-03-10] MEDS: Clindamycin 900 MG/50 ML BAG 75 MG IV (12:13)
--- NOTE | 2023-03-10 12:50 | GALL_PTH ---
PATIENT: FALGUNI DOSS LOC: [facility] [place] U#:[id number] AGE/SX: 33/F ROOM: RE03/10/[address]: Dr. Jd Gamino MD : 1990 BED: DIS: 03/10/2023 SPEC #: [id number] RECD: 03/10/23 15:37 STATUS: ELDER NUNEZJayro #: [id number] FAUZIA: 03/10/23 12:[address]: Jd Gamino DEPT: SURGICAL PATHOLOGY RECD BY: Love Frey ENTERED: 03/11/23 08:15 SP TYPE: SOULEYMANE MOSS DR: No Primary Care Phys Tissues: Gallbladder, NOS Procedures: Surgery Specimen Level III HEADER OPERATION: Laparoscopic cholecystectomy with IOC PRE-OP DIAGNOSIS: Gallstones TISSUE SUBMITTED: Gallbladder MICROSCOPIC DIAGNOSIS Gallbladder, cholecystectomy: Chronic cholecystitis and cholelithiasis. SJ:yany 03/12/2023 MICROSCOPIC DESCRIPTION Slides are reviewed. GROSS DESCRIPTION Received is one container labeled with the patient's name and designated gallbladder. The specimen consists of a gallbladder measuring 7.5 cm in length and up to 3.5 cm in diameter. The external surface is pink-cramer, smooth and glistening for the most part. Focally it is granular, hemorrhagic and contains cautery artifact. The gallbladder contains green-yellow mucoid bile and multiple ovoid to irregular green stones measuring in aggregate 2.5 x 2.0 x 0.8 cm and 0.2 to 1.0 cm in greatest dimension. The mucosa is bile-stained and without any mass lesions. The gallbladder wall measures up to 0.1 cm in thickness. Colorist Photography sections from the gallbladder and the cystic duct are submitted in one cassette. / SJ:rg 03/11/2023 :3 CPT: 23988
[2023-03-10] MEDS: Bupivacaine 0.25% 30 ML Vial (13:08)
--- NOTE | 2023-03-10 13:14 | OP.PCM_ITS ---
Report of Operation Date of Procedure: 03/10/23 Pre-Operative Diagnosis: Cholelithiasis and biliary colic Post-Operative Diagnosis: Same Surgery/Procedure Performed:: Laparoscopic cholecystectomy with cholangiogram Specimen's removed: Gallbladder Description of Procedure: After obtaining informed consent patient was brought back to the operating room. General anesthesia was induced. The abdomen was prepped and draped in usual sterile fashion. A small midline incision was made superior to the umbilicus and deepened to the level of fascia. The fascia was elevated and incised. Next the peritoneum was elevated and incised in the same fashion. Finger sweep was performed and the Miguel trocar was placed into the abdomen. The balloon was inflated. The abdomen was inflated to 15 mmHg. Next a camera was introduced into the abdomen and the abdomen was inspected. Next under direct visualization three 5-mm ports were placed one subxiphoid and 2 subcostal. Next the gallbladder was elevated and retracted toward the right shoulder. The peritoneum was stripped from the gallbladder. The infundibulum was located and retracted laterally. Next the triangle of Calot was dissected and the cystic duct and cystic artery were identified. Cholangiograms were performed. The [place] clamp was used to clamp across the infundibulum and the catheter needle was inserted into the gallbladder. Under fluoroscopy contrast was instilled into the gallbladder and the common duct, cystic duct as well as proximal hepatic ducts were identified. There was good filling of the duodenum. There were no filling defects noted in the common bile duct. The clamp was removed as well as the needle and the infundibulum was grasped once more. Three hemolock clips were placed across the cystic duct. The cystic duct was then divided leaving 2 clips on the stump. The cystic artery was clipped and divided in the same fashion. The hook cautery was then used to take the gallbladder off of the gallbladder bed. There was some spillage of bile. Hemostasis was obtained. Gallbladder fossa was irrigated and no active bleeding or bile leakage was noted. Next the camera was introduced in the subxiphoid port. An Endopouch bag was placed through the umbilical port and the gallbladder was placed into it. The gallbladder was then removed through the umbilical incision. The camera was then reinserted through the umbilical port. The gallbladder fossa was inspected once more and noted to be hemostatic with no leaking bile. The abdomen was suctioned dry. The 5 mm ports were removed under direct visualization. The umbi lical port was then removed and the air was removed from the abdomen. Next using an 0 Vicryl suture the umbilical fascia was closed in a [id number] fashion. The umbilical port site was irrigated local anesthetic was administered to all the incisions. All the incisions were closed with interrupted subcuticular 4-0 Monocryl sutures followed by Steri-Strips and dressings. The patient was awoken and taken to PACU in stable condition. Admit VTE Documentation VTE Mechan Device Prophylaxis: SCD's
--- NOTE | 2023-03-10 13:16 | DCINST_ITS ---
Discharge Instructions Procedure Gallbladder Diet Discharge Diet: Light diet - advance as tolerated Activity Discharge Activity: May Not Drive (for 2-3 days or while taking narcotic pain medications.) and - (Do not drive, work heavy equipment or sign legal documents for 24 hours.) May shower in (days): 1 Lifting Restrictions: 20 lbs for 2 weeks Additional Activity Instructions:: Pain medication may cause nausea. You should typically eat light foods as you take your pain medications. Pain medication may also cause constipation. If this is a problem for you, please discuss with your doctor. Dressing / Incision Call your doctor if your incision/area has: Continuous Slow Oozing, Sudden Increased Bleeding, Increased Pain/ Swelling, Increased Redness and Foul Smelling Discharge Call your doctor if you observe: Fever of 101 or Higher Suture Line Care: Avoid Pulling/Pushing and Avoid Pinching/Bending Remove Dressing in: 2 days Additional Dressing/Incision Instructions:: Leave operative bandaids on for 2 days. When you remove dressing, leave Steri-Strips on until your follow-up appointment, or until the Steri-Strips fall off on their own. Follow Up Care Please Follow Up With: Jd Gamino MD When: Please call to schedule 2 week follow up appointment. [phone] Test Results: Test results from this visit will be discussed in further detail at your follow- up appointment, if applicable. Discharge Plan Admission Attending Provider: Jd Gamino Primary Care Provider: Lynn Whiteside Primary Instructions Additional Instructions / Restrictions: Ibuprofen and Tylenol for pain, oxycodone for breakthrough. Discharge Orders/Prescriptions Prescriptions: New oxycodone 5 mg tablet 5 - 10 mg PO Q6H PRN (Reason: pain) 5 Days Qty: 20 0RF No Action cetirizine [Zyrtec] 10 mg tablet 10 mg PO DAILY Referrals / Follow Up: Care PhysicianLynn Primary [Primary Care Provider] - Disposition Disposition (needs filled in before D/C Order can be placed): Home, Self Care
--- NOTE | 2023-03-10 13:40 | EKG12_ITS ---
Test Reason : SURGERY Blood Pressure : / mmHG Vent. Rate : 096 BPM Atrial Rate : 096 BPM P-R Int : 166 ms QRS Dur : 072 ms QT Int : 352 ms P-R-T Axes : 056 096 049 degrees QTc Int : 444 ms Normal sinus rhythm Normal ECG Confirmed by WANDA TOLENTINO, ODESSA ([id number]), online editor DAVE DUTTON ([id number]) on 03/16/2023 12:34:07 PM Referred By: Jd Gamino Confirmed By:ODESSA MUÑOZ MD
[2023-03-10] MEDS: Acetaminophen 325 MG Tablet 650 MG PO (15:05)
[2023-03-10] MEDS: Ondansetron 4 MG/2 ML Vial IV (15:30)
== END 2023-03-10 16:23 | disposition home or self-care (01) ==
LOC: SDC 11:20 → AC 11:20
PROVIDERS: Anesthesiology; Referring Provider Surgery; Visit Provider Surgery
PROC: (CPT 47610; principal; 2023-03-10 12:30)
DX: K80.10 Calculus of gallbladder with chronic cholecystitis without obstruction (principal); Z86.718 Personal history of other venous thrombosis and embolism; Z86.711 Personal history of pulmonary embolism; Z86.16 Personal history of COVID-19
CPT/HCPCS: 47563; 00790; 74300; 76000; 81025; 88304; 93005; J7120; J2405

== ENCOUNTER 2024-08-21 00:26 | Day surgery (SDC) | payer OTHER, SELFPAY ==
[2024-08-21] VITALS (21 sets, daily range): BP systolic 99–133; BP diastolic 65–89; PULSE 82–118; RESP 16–20; TEMP 36.6–37.7; O2SAT 97–100; BMI 18.8
--- NOTE | 2024-08-21 01:00 | US_ITS ---
INDICATION: right abdomen pain and flank pain EXAMINATION: Ultrasound US OB Transvaginal TECHNIQUE: Transvaginal sonographic images of the pelvis. Garcia scale and color Doppler including spectral doppler evaluation of the adnexa. COMPARISON: None. FINDINGS: UTERUS: Cystic structure within the fundal aspect of the endometrium. No evidence of a surrounding decidual reaction and no evidence of a yolk sac or pole. RIGHT OVARY: 2.2 cm thick-walled cystic lesion with peripheral hypervascularity in the right adnexa adjacent to the right ovary and appears separate from the ovary. The right ovary demonstrates normal vascular flow demonstrated with color and pulsed-wave Doppler. LEFT OVARY: Unremarkable. Normal vascular flow demonstrated with color and pulsed-wave Doppler. FREE FLUID: Complex free fluid in the right adnexa. US/Transvaginal w/Preg US IMPRESSION: Thick-walled cystic structure with peripheral hypervascularity in the right adnexa adjacent to but appearing separate from the right ovary. Complex right adnexal free fluid. Findings are concerning for a right adnexal ectopic with hemorrhage. Cystic structure in the fundal aspect of the endometrium possibly representing a pseudogestational sac. No evidence of a pole or yolk sac. Electronically Signed: Tonny Christine DO at 4:02 EST ,
[2024-08-21] MEDS: 0.9% Normal Saline (1000mL) 1,000 ML 999 ML IV ×2 (01:12→04:57)
[2024-08-21] MEDS: Morphine 4 MG/ML Syringe IV (01:12)
[2024-08-21] MEDS: Ondansetron 4 MG/2 ML Vial IV ×2 (01:12→04:57)
[2024-08-21 01:13] LABS: Absolute Lymphocyte Count 0.28 X10^3/uL (0.83-4.51); Absolute Neutrophil Count 11.7 X10^3/uL (2.0-7.7); Basophil# 0.05 X10^3/uL; Basophil% 0.4 % (0-1); Eosinophil# 0.04 X10^3/uL; Eosinophils% 0.3 % (0-5); Hematocrit 44.2 % (37-47); Hemoglobin 14.9 g/dL (12.0-15.0); Lymphocyte # 0.28 X10^3/ul (0.83-4.51); Lymphocyte % 2.2 % (19-41); Mean Corp Hgb Conc 33.7 g/dL (32-36); Mean Corpuscular Hgb 29.3 pg (27.0-32.0); Mean Corpuscular Volume 86.8 fL (81-99); Mean Platelet Vol. 10.4 fl (6.2-12.0); Monocyte# 0.56 X10^3/uL; Monocyte% 4.4 % (0-10); NRBC Flagged by Analyzer 0 % (0-5); Neutrophil # 11.72 X10^3/uL (2.7-7.7); Neutrophil % 92.2 % (47-70); POSITIVE DIFFERENTIAL YES; Platelet Count 275 K/mm3 (150-450); RBC Distribution Width CV 12.6 % (11.6-14.6); RBC Distribution Width SD 39.8 fl (35.1-43.9); Red Blood Count 5.09 M/mm3 (4.2-5.4); White Blood Count 12.7 K/mm3 (4.4-11.0)
[2024-08-21 01:15] LABS: Glucose, Dipstick Normal (Normal); Leukocyte Esterase-Dipstick 100 /ul (Negative); Nitrite-Dipstick Negative (Negative); Occult Blood-Urine 50 /ul (Negative); Protein-Dipstick 30 mg/dl (Negative); Specific Gravity, Urine 1.025 (1.002-1.030); Urine Bilirubin Dipstick Negative (Negative); Urine Urobilinogen 1 mg/dl (Normal)
[2024-08-21 01:18] LABS: Internal QC Validated? YES +Cl - CLEAR BKGD
[2024-08-21 01:19] LABS: Color, Urine Yellow (Yellow); Pregnancy, Urine Positive Negative; Urine Clarity Sl Cloudy (Clear)
[2024-08-21 01:20] LABS: Ketone-Dipstick 150 mg/dl (Negative)
[2024-08-21 01:30] LABS: AST(SGOT) 25 U/L (15-37); Alanine Aminotransfer ALT/SGPT 37 U/L (13-56); Albumin, Serum 4.4 g/dL (3.2-5.0); Alkaline Phosphatase 66 U/L (45-117); Anion Gap 8 (5-15); BUN 19 mg/dL (7-18); BUN/Creat Ratio 24.3 RATIO (10-20); Bilirubin, Direct 0.39 mg/dL (0.00-0.30); Calcium,Total 9.2 mg/dL (8.5-10.1); Chloride 109 mmol/L (98-107); Creatinine, Serum 0.78 mg/dL (0.55-1.02); EST Glomerular Filtration Rate 88 mL/min (>60); Est Glom Filt Rate - Afr Amer 107 mL/min (>60); Estimated Creatinine Clearance 80.75 ml/min; Globulin 3.9 g/dL (2.2-4.2); Glucose 177 mg/dL (74-106); Lipase 27 U/L (13-75); Potassium 3.4 mmol/L (3.5-5.1); Protein, Total 8.3 g/dL (6.4-8.2); Sodium Level 137 mmol/L (136-145)
[2024-08-21 01:31] LABS: White Blood Cells 10-25 SEEN /hpf (0-5)
[2024-08-21 01:32] LABS: Bacteria 2+ /hpf (None Seen); Fine Granular Cast- Urine 0-5 SEEN /lpf (0-5); Hyaline Cast 5-10 SEEN /lpf (0-5); Mucous, Urine 1+ /hpf (<or=2+); Red Blood Cells-Urine 5-10 SEEN /hpf (0-5); Squamous Epithelial Cells - UA 5-10 SEEN /hpf (5-10)
[2024-08-21 01:51] LABS: hCG Titer Quant., Serum 5426 mIU/mL (1-3)
[2024-08-21] MEDS: Ceftriaxone 1 GM/50 ML BAG IV (01:57)
[2024-08-21 02:13] LABS: Lactic Acid 1.9 mmol/L (0.4-1.9)
--- NOTE | 2024-08-21 02:18 | EX.ED.DYSGE1 ---
HPI History of Present Illness Chief Complaint: Abd Pain Informant: patient and spouse/S.O. Narrative Narrative: Patient is a 34-year-old female who is a G4, P3 with 3 vaginal deliveries occurring at approximately 33 weeks gestation. She states she believes she is approximately 5 weeks . She reports that her and her ate [employer] around 1/130 this afternoon. Patient states around 730 she developed pain in the upper abdomen and lower back region and this was coupled by bouts of vomiting and diarrhea. She states no one else at home is sick. She reports that she had a previous cholecystectomy but that the pain feels similar nature to her previous bouts of gallbladder attack. She denies any vaginal bleeding or discharge but states that despite time the pain has not improved and secondary to this she comes in for evaluation [facility] Medical History Anxiety History of echocardiogram Nausea RUQ pain Gallstones Non-smoker DVT (deep venous thrombosis) Threatened in early Home Medications ?Medication ?Instructions ?Recorded ?Last Taken ?Type cetirizine 10 mg tablet (Zyrtec) 10 mg PO DAILY ALLERGIES 03/02/23 Unknown History Allergy/AdvReac Type Severity Reaction Status Date / Time No Known Allergies Allergy Verified 08/21/24 00:32 Family History Mother Hypertension Father Hypertension Asthma Son Asthma Surgical History History of cholecystectomy Hx of wisdom tooth extraction History of bilateral breast implants History of tonsillectomy History of breast surgery Social History household members: spouse and children Smoking Status: Never smoker alcohol intake: never substance use type: does not use ROS ROS ED Constitutional Constitutional ED: Denies chills or fever(s) Eyes Eyes: Denies blurry vision or change in vision ENT ENT ED: Denies sore throat Cardiovascular Cardiovascular: Denies chest pain Respiratory/Chest Respiratory/Chest: Denies cough or dyspnea Gastrointestinal Gastrointestinal: Reports abdominal pain, diarrhea, nausea and vomiting Genitourinary Genitourinary ED: Denies dysuria, hematuria or urinary frequency Musculoskeletal Musculoskeletal: Reports back pain Integumentary Denies rash Neurologic Neurologic: Denies headache(s) Hematologic/Lymphatic Hematologic/Lymphatic: Denies easy bleeding or easy bruising EXAM Physical Exam Const Vital Signs: 08/21/24 00:27 08/21/24 00:30 08/21/24 01:30 Temperature 98.1 F 98.1 F 98.5 F Temperature Source Oral Oral Oral Pulse Rate 87 91 86 Respiratory Rate 17 20 H 16 Blood Pressure 133/84 H 115/65 113/74 Blood Pressure Mean 100 81 87 Pulse Ox 100 100 100 Oxygen Delivery Method Room Air Room Air Room Air 08/21/24 02:00 08/21/24 02:53 08/21/24 04:19 Temperature 98.1 F 98.9 F 97.8 F Temperature Source Oral Oral Oral Pulse Rate 104 H 101 H 102 H Respiratory Rate 18 18 18 Blood Pressure 114/65 110/73 110/70 Blood Pressure Mean 81 85 83 Pulse Ox 98 97 97 Oxygen Delivery Method Room Air Room Air Room Air 08/21/24 05:01 Temperature 98.2 F Temperature Source Oral Pulse Rate 90 Respiratory Rate 16 Blood Pressure 108/72 Blood Pressure Mean 84 Pulse Ox 98 Oxygen Delivery Method Room Air Positive well nourished and well developed General Appearance ED: well developed; Negative for pallor HEENT HEENT Narrative: No tongue or lip swelling no oral lesions no airway edema or compromise No secondary findings in the posterior pharynx to suggest infection Eyes PERRL and EOMs intact bilaterally General Eye ED: Negative for scleral icterus Neck supple Neck Narrative: No nuchal rigidity or meningeal signs Resp normal respiratory effort and clear to auscultation bilaterally Cardio regular rate and regular rhythm Rate: other Other Details: Regular rate and rhythm without murmurs rubs or gallop Radial and carotid pulses are equal and symmetric GI non-distended and no masses GI Narrative: Abdomen is soft and nondistended with normal active bowel sounds. Patient has pain on palpation in the midepigastric and right upper quadrant region. However no voluntary guarding or rigidity. No pulsatile mass or fluid wave Auscultation: normoactive bowel sounds Palpation: soft Back/Spine no CVA tenderness Back/Spine Narrative: No CVA pain noted but there is bilateral paralumbar pain with palpation Extremity normal to inspection Extremity Narrative: No asymmetric edema no pitting edema negative Homans' sign bilaterally Neuro oriented x3, CN's II-XII intact bilaterally and no sensory deficits noted Sensorium / Orientation: alert Motor Exam: strength 5/5 throughout Psych mental status grossly normal Skin no rashes or lesions noted General Skin Exam: Negative for jaundice or pallor MDM MDM MDM Narrative Medical decision making narrative: Patient arrived to the ER with stable vital. She reported sudden onset of pain along the mid to right sided abdomen as well as back pain. She states that after the pain began she developed bouts of vomiting and diarrhea. There is concern this could be food poisoning versus gastroenteritis but no one around her has been sick and her ate the same meal for lunch without symptoms going against an infectious process. There is concern for UTI/pyelonephritis. As the patient is 5 weeks reportedly there is also concern for complication such as ectopic . Secondary to this basic labs were obtained as well as a transvaginal ultrasound. Patient's white count is slightly elevated at 12.7 which could be infectious in nature or simply related to the stress response of . Otherwise she has no signs of KEITH lactic acidosis or elevation to her lipase to suggest pancreatitis. Her urine does show changes concerning for early infection versus contamination and therefore will be sent for culture but based on her status she will be treated with IV Rocephin. As there is concern for ectopic versus ovarian cyst or ovarian torsion a transvaginal ultrasound was obtained. This did show changes concerning for a right adnexal ectopic . This would correlate with the patient's pain as well as location of symptom. Therefore Dr. Ybarra/WASHING MACHINE OPERATOR was contacted. Dr. Ybarra will evaluate the patient in the ER and decide on potential surgical intervention. After evaluation by Dr. Ybarra in the ER the patient will be taken from ER to the surgical suite secondary to ectopic . The patient has remained hemodynamically stable for entire ER stay and is medically cleared for surgery at this time History & Record Review Discussion w/independent historian: Patient and Significant other Lab Data Attestation: I reviewed the patient's lab results. Labs: Laboratory Results - last 24 hr 08/21/24 08/21/24 08/21/24 00:33 01:03 01:09 WBC 12.7 H RBC 5.09 Hgb 14.9 Hct 44.2 MCV 86.8 MCH 29.3 MCHC 33.7 RDW Std Deviation 39.8 RDW Coeff of Ming 12.6 Plt Count 275 MPV 10.4 Immature Gran % (Auto) 0.500 Neut % (Auto) 92.2 H Lymph % (Auto) 2.2 L Hood % (Auto) 4.4 Eos % (Auto) 0.3 Baso % (Auto) 0.4 Absolute Neuts (auto) 11.7 H Absolute Lymphs (auto) 0.28 L Nucleated RBC % 0 Sodium 137 Potassium 3.4 L Chloride 109 H Carbon Dioxide 19.0 L Anion Gap 8 BUN 19 H Creatinine 0.78 Estim Creat Clear Calc 80.75 Est GFR (MDRD) Af Amer 107 Est GFR (MDRD) Non-Af 88 BUN/Creatinine Ratio 24.3 H Glucose 177 H Lactic Acid Calcium 9.2 Total Bilirubin 1.70 H Direct Bilirubin 0.39 H AST 25 ALT 37 Alkaline Phosphatase 66 Total Protein 8.3 H Albumin 4.4 Globulin 3.9 Lipase 27 HCG, Quant 5426 H Urine Color Yellow Urine Clarity Sl Cloudy Urine pH 6.0 Ur Specific [place] 1.025 Urine Protein 30 H Urine Glucose (UA) Normal Urine Ketones 150 A* Urine Occult Blood 50 H Urine Nitrite Negative Urine Bilirubin Negative Urine Urobilinogen 1 H Ur Leukocyte Esterase 100 H Urine RBC 5-10 SEEN Urine WBC 10-25 SEEN Ur Squamous Epith Cells 5-10 SEEN Urine Bacteria 2+ Hyaline Casts 5-10 SEEN Fine Granular Casts 0-5 SEEN Urine Mucus 1+ Urine Test Positive H Blood Type A POSITIVE 08/21/24 01:45 WBC RBC Hgb Hct MCV MCH MCHC RDW Std Deviation RDW Coeff of Ming Plt Count MPV Immature Gran % (Auto) Neut % (Auto) Lymph % (Auto) Hood % (Auto) Eos % (Auto) Baso % (Auto) Absolute Neuts (auto) Absolute Lymphs (auto) Nucleated RBC % Sodium Potassium Chloride Carbon Dioxide Anion Gap BUN Creatinine Estim Creat Clear Calc Est GFR (MDRD) Af Amer Est GFR (MDRD) Non-Af BUN/Creatinine Ratio Glucose Lactic Acid 1.9 Calcium Total Bilirubin Direct Bilirubin AST ALT Alkaline Phosphatase Total Protein Albumin Globulin Lipase HCG, Quant Urine Color Urine Clarity Urine pH Ur Specific [place] Urine Protein Urine Glucose (UA) Urine Ketones Urine Occult Blood Urine Nitrite Urine Bilirubin Urine Urobilinogen Ur Leukocyte Esterase Urine RBC Urine WBC Ur Squamous Epith Cells Urine Bacteria Hyaline Casts Fine Granular Casts Urine Mucus Urine Test Blood Type Radiography Diagnostic Testing: Clinical Impression(s) from Imaging Studies Obstetrics Ultrasound 08/21/24 01:00 IMPRESSION: Thick-walled cystic structure with peripheral hypervascularity in the right adnexa adjacent to but appearing separate from the right ovary. Complex right adnexal free fluid. Findings are concerning for a right adnexal ectopic with hemorrhage. Cystic structure in the fundal aspect of the endometrium possibly representing a pseudogestational sac. No evidence of a pole or yolk sac. Electronically Signed: Tonny Christine DO at 4:02 EST , ADDENDUM: 08/21/24 0410 IMPRESSION: Thick-walled cystic structure with peripheral hypervascularity in the right adnexa adjacent to but appearing separate from the right ovary. Complex right adnexal free fluid. Findings are concerning for a right adnexal ectopic with hemorrhage. Cystic structure in the fundal aspect of the endometrium possibly representing a pseudogestational sac. No evidence of a pole or yolk sac. N.B. : Jayant Portillo DO, confirmed on 08/21/2024 04:03:44 (ET) that the healthcare facility has received the radiology report. Electronically Signed: Tonny Christine DO at 4:02 EST , Discharge Plan Dx/Rx/DC Orders Clinical Impression: Ectopic Disposition Disposition: Acute Care [facility]
[2024-08-21] MEDS: HYDROmorphone 0.5 MG/0.5 ML SYRINGE IV ×2 (02:47→04:16)
--- NOTE | 2024-08-21 04:56 | ED.RN ---
Paged for Dr Mills @ [phone] by text. Abrasive Coating Machine Operator put me through to her phone @ [phone], no response but I left a voicemail.
--- NOTE | 2024-08-21 06:06 | PCM.HP.STD ---
[facility] - General General Date of Service: 08/21/24 Chief Complaint: Abdominal pain HPI Narrative FALGUNI DOSS, is a 34 F who presents with abdominal pain. Patient reports the pain started after eating at [employer] yesterday afternoon. At 7:30pm she developed right sided abdominal pain (upper & lower). She also had some vomiting and diarrhea prior to presenting to the ED. No one else at home is sick. Patient states she is about 5 weeks . She denies any VB or discharge. Patient has 3 kids and her youngest is 6. She had previously planned to have her tubes removed but then had to have her gallbladder surgery. Since being in the ED the pain medicine has helped. [facility] Medical History Anxiety History of echocardiogram Nausea RUQ pain Gallstones Non-smoker DVT (deep venous thrombosis) Threatened in early Home Medications ?Medication ?Instructions ?Recorded ?Last Taken ?Type cetirizine 10 mg tablet (Zyrtec) 10 mg PO DAILY ALLERGIES 03/02/23 Unknown History Allergy/AdvReac Type Severity Reaction Status Date / Time No Known Allergies Allergy Verified 08/21/24 00:32 Family History Mother Hypertension Father Hypertension Asthma Son Asthma Surgical History History of cholecystectomy Hx of wisdom tooth extraction History of bilateral breast implants History of tonsillectomy History of breast surgery Social History household members: spouse and children Smoking Status: Never smoker alcohol intake: never substance use type: does not use Vital Signs Vital Signs Vital Signs: 08/21/24 00:27 08/21/24 00:30 08/21/24 01:30 Temperature 98.1 F 98.1 F 98.5 F Temperature Source Oral Oral Oral Pulse Rate 87 91 86 Respiratory Rate 17 20 H 16 Blood Pressure 133/84 H 115/65 113/74 Blood Pressure Mean 100 81 87 Pulse Ox 100 100 100 Oxygen Delivery Method Room Air Room Air Room Air 08/21/24 02:00 08/21/24 02:53 08/21/24 04:19 Temperature 98.1 F 98.9 F 97.8 F Temperature Source Oral Oral Oral Pulse Rate 104 H 101 H 102 H Respiratory Rate 18 18 18 Blood Pressure 114/65 110/73 110/70 Blood Pressure Mean 81 85 83 Pulse Ox 98 97 97 Oxygen Delivery Method Room Air Room Air Room Air 08/21/24 05:01 Temperature 98.2 F Temperature Source Oral Pulse Rate 90 Respiratory Rate 16 Blood Pressure 108/72 Blood Pressure Mean 84 Pulse Ox 98 Oxygen Delivery Method Room Air Weight Weight: 113 lb 1.554 oz Body Mass Index (BMI) 18.8 Physical Exam Const alert and oriented x3 HEENT normocephalic Resp normal respiratory effort GI soft to palpation and non-distended GI Narrative: mild right sided tenderness; no rebound or guarding Extremity no calf tenderness Neuro no focal motor deficits and no sensory deficits noted Results Lab / Micro Data 08/21/24 00:33 08/21/24 00:33 Labs: Laboratory Results - last 24 hr 08/21/24 00:33: WBC 12.7 H, RBC 5.09, Hgb 14.9, Hct 44.2, MCV 86.8, MCH 29.3, MCHC 33.7, RDW Std Deviation 39.8, RDW Coeff of Ming 12.6, Plt Count 275, MPV 10.4, Immature Gran % (Auto) 0.500, Neut % (Auto) 92.2 H, Lymph % (Auto) 2.2 L, [place]ke % (Auto) 4.4, Eos % (Auto) 0.3, Baso % (Auto) 0.4, Absolute Neuts (auto) 11.7 H, Absolute Lymphs (auto) 0.28 L, Nucleated RBC % 0, Sodium 137, Potassium 3.4 L, Chloride 109 H, Carbon Dioxide 19.0 L, Anion Gap 8, BUN 19 H, Creatinine 0.78, Estim Creat Clear Calc 80.75, Est GFR (MDRD) Af Amer 107, Est GFR (MDRD) Non-Af 88, BUN/Creatinine Ratio 24.3 H, Glucose 177 H, Calcium 9.2, Total Bilirubin 1.70 H, Direct Bilirubin 0.39 H, AST 25, ALT 37, Alkaline Phosphatase 66, Total Protein 8.3 H, Albumin 4.4, Globulin 3.9, Lipase 27, HCG, Quant 5426 H 08/21/24 01:03: Urine Color Yellow, Urine Clarity Sl Cloudy, Urine pH 6.0, Ur Specific [place] 1.025, Urine Protein 30 H, Urine Glucose (UA) Normal, Urine Ketones 150 A*, Urine Occult Blood 50 H, Urine Nitrite Negative, Urine Bilirubin Negative, Urine Urobilinogen 1 H, Ur Leukocyte Esterase 100 H, Urine RBC 5-10 SEEN, Urine WBC 10-25 SEEN, Ur Squamous Epith Cells 5-10 SEEN, Urine Bacteria 2+, Hyaline Casts 5-10 SEEN, Fine Granular Casts 0-5 SEEN, Urine Mucus 1+, Urine Test Positive H 08/21/24 01:09: Blood Type A POSITIVE 08/21/24 01:45: Lactic Acid 1.9 Imaging Radiology Impression Obstetrics Ultrasound 08/21/24 01:00 IMPRESSION: Thick-walled cystic structure with peripheral hypervascularity in the right adnexa adjacent to but appearing separate from the right ovary. Complex right adnexal free fluid. Findings are concerning for a right adnexal ectopic with hemorrhage. Cystic structure in the fundal aspect of the endometrium possibly representing a pseudogestational sac. No evidence of a pole or yolk sac. Electronically Signed: Tonny Christine DO at 4:02 EST , ADDENDUM: 08/21/24 0410 IMPRESSION: Thick-walled cystic structure with peripheral hypervascularity in the right adnexa adjacent to but appearing separate from the right ovary. Complex right adnexal free fluid. Findings are concerning for a right adnexal ectopic with hemorrhage. Cystic structure in the fundal aspect of the endometrium possibly representing a pseudogestational sac. No evidence of a pole or yolk sac. N.B. : Jayant Portillo DO, confirmed on 08/21/2024 04:03:44 (ET) that the healthcare facility has received the radiology report. Electronically Signed: Tonny Christine DO at 4:02 EST , Assessment & Plan Assessment/Plan (1) Ectopic : QUALIFIERS: Intrauterine status: without intrauterine Laterality: right Location of ectopic : tubal Qualified Code(s): O00.101 - Right tubal without intrauterine (2) Request for sterilization: PLAN: Plan Discussed R/B/A of management options and patient agrees to proceed with surgery. She desires bilateral salpingectomy as she is now at increased risk of future ectopic pregnancies. The risks of regret and failure were reviewed. All questions answered.
--- NOTE | 2024-08-21 07:40 | PCM.PRE.AN2 ---
ASA Classification* ASA Classification ASA Classification: 2 and E Assessment & Plan Anesthesia* Anesthesia Assessment Anesthesia Assessment: Discussed sedation and/or anesthesia options, risks, benefits, and alternatives with patient/parents/legal guardian/POA. Questions invited. The patient/parents/legal guardian/POA seems to understand and agrees to proceed with anesthesia plan. Reviewed the physical assessment, medical history, allergy history and patient home medications list prior to surgery/procedure/anesthetic and documented any changes. Performed airway and anesthesia risk assessments. Anesthesia Type Anesthesia Type: General History Source History Obtained from:: Patient and Chart Anesthesia Focused Assessment* Temperature: 98.2 F Pulse Rate: 98 Blood Pressure: 106/66 Respiratory Rate: 16 Pulse Ox: 100 Oxygen Delivery Method: Room Air Airway Assessment Mouth opens: >3 cm Mallampati Score: II Teeth Condition: Intact Neck Range of motion (ROM): Full ROM Focused Labs Anesthesia Preop lab: CBC WBC 12.7 K/mm3 (4.4-11.0) H 08/21/24 00:33 RBC 5.09 M/mm3 (4.2-5.4) 08/21/24 00:33 Hgb 14.9 g/dL (12.0-15.0) 08/21/24 00:33 Hct 44.2 % (37-47) 08/21/24 00:33 Plt Count 275 K/mm3 (150-450) 08/21/24 00:33 CHEMISTRY Potassium 3.4 mmol/L (3.5-5.1) L 08/21/24 00:33 Sodium 137 mmol/L (136-145) 08/21/24 00:33 Magnesium 2.5 mg/dL (1.6-2.6) 06/11/21 13:52 BUN 19 mg/dL (7-18) H 08/21/24 00:33 Creatinine 0.78 mg/dL (0.55-1.02) 08/21/24 00:33 Glucose 177 mg/dL (74-106) H 08/21/24 00:33 TSH 0.14 uIU/mL (0.358-3.74) L 02/12/18 18:50 COAG PT 15.6 SECONDS (11.7-14.9) H 06/11/21 16:22 HCG, Quant 5426 mIU/mL (1-3) H 08/21/24 00:33 Urine Test Positive Negative H 08/21/24 01:03 Pre-Assessment Diagnosis/Proposed Procedure Planned Operative Procedure(s): Laparoscopic removal of ectopic . Anesthesia History Anesthesia History - epic beacon analyst: Anesthesia History - epic beacon analyst Hx Hospitalization No 03/04/23 10:15 Any Problems With Anesthesia No 08/21/24 06:43 Cholinesterase deficiency No 08/21/24 06:43 You/Your Family Experience No 08/21/24 06:43 fever (hyperthermia) with Relationship Recent Exposure to Contagious No 08/21/24 06:43 Disease Does patient have nerve No 08/21/24 06:43 stimulator Patient instructed to have device shut off --Does patient have Pacemaker No 08/21/24 06:43 or ICD? When Was Last Pacemaker Check QUESTION #4 FULL TEXT: You/Your Family Experience fever (hyperthermia) with Anesthesia Last Oral Intake Last Oral intake: Last Oral Intake NPO since 19:00 08/21/24 06:43 Meds taken in AM with sips of No 08/21/24 06:43 water? Meds patient instructed to take am of surgery PONV PONV - epic beacon analyst: PONV - epic beacon analyst Female HX of Motion Sickness HX of N/V After Surgery Non-Smoker Duration of Surgery greater than 60 minutes Number of Risk Factors PONV Score Height & Weight Height & Weight: Anesthesia: Height & Weight Height 5 ft 5 in 08/21/24 06:43 Weight: 51.3 kg 08/21/24 06:43 Body Mass Index (BMI) 18.8 08/21/24 06:43 Respiratory Assessment Respiratory Assessment - epic beacon analyst: Respiratory Tract Infection Hx - epic beacon analyst Hx Respiratory Tract Infection No 08/21/24 06:43 STOP Sleep Apnea STOP Sleep Apnea - epic beacon analyst: STOP Sleep Apnea - epic beacon analyst Hx Hypertension No 08/21/24 06:43 Hx Sleep Apnea No 08/21/24 06:43 CPAP BIPAP Do you snore loudly (louder No 08/21/24 06:43 than talking or can be heard Do you often feel tired/ No 08/21/24 06:43 fatigued/ sleepy during daytime? Has anyone observed you stop No 08/21/24 06:43 breathing during sleep? STOP Results Negative 08/21/24 06:43 QUESTION #5 FULL TEXT : Do you snore loudly (louder than talking or can be heard through closed doors)? 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 Specify any problems Hx of Preganancy in last 3 Months Nurse Filling Out Transfusion & Questions: Date: Time: Patient unable to answer at this time (ie. confused, unrespo /Reproduction History /Reproductive History - epic beacon analyst: /Reproductive Hx- epic beacon analyst Hx Now Yes 08/21/24 06:43 Gestational Age (in weeks): EDC: Hx Hx Para Hx Section SAB No 08/21/24 06:43 PFSH Medical History Anxiety History of echocardiogram Nausea RUQ pain Gallstones Non-smoker DVT (deep venous thrombosis) Threatened in early Home Medications ?Medication ?Instructions ?Recorded ?Last Taken ?Type cetirizine 10 mg tablet (Zyrtec) 10 mg PO DAILY ALLERGIES 03/02/23 Unknown History Allergy/AdvReac Type Severity Reaction Status Date / Time No Known Allergies Allergy Verified 08/21/24 00:32 Family History Mother Hypertension Father Hypertension Asthma Son Asthma Surgical History History of cholecystectomy Hx of wisdom tooth extraction History of bilateral breast implants History of tonsillectomy History of breast surgery Social History household members: spouse and children Smoking Status: Never smoker alcohol intake: never substance use type: does not use Review of Systems (Anesthesia) ROS Narrative System reviewed and no additional complaints, except as documented.
--- NOTE | 2024-08-21 08:00 | EMB_PTH ---
PATIENT: FALGUNI DOSS LOC: [facility] [place] U#:[id number] AGE/SX: 34/F ROOM: RE08/21/[address]: Dr. Esthela Ybarra MD : 1990 BED: DIS: 08/21/2024 SPEC #: [id number] RECD: 08/21/24 10:21 STATUS: ELDER REJayro #: [id number] FAUZIA: 08/21/24 08:[address]: Darlyn Kelly DEPT: SURGICAL PATHOLOGY RECD BY: Love Frey ENTERED: 08/21/24 11:21 SP TYPE: ENDOM BX/C OTHR DR: Dr. Esthela Ybarra MD No Primary Care Phys Tissues: A - Fallopian tube B - Endometrium, NOS Procedures: Surgery Specimen Level II Surgery Specimen Level IV HEADER OPERATION: Diagnostic laparoscopic, salpingectomy, bilateral PRE-OP DIAGNOSIS: of unknown TISSUE SUBMITTED: A- Bilateral fallopian tubes, B- Endometrial biopsy MICROSCOPIC DIAGNOSIS A. Right and left fallopian tubes, bilateral salpingectomies: Complete cross-sections of two fallopian tubes with no pathologic change. B. Endometrium, biopsy: Chorionic villi, decidualized stroma and trophoblastic cells (products of conception). AM: 08/22/2024 MICROSCOPIC DESCRIPTION Slides are reviewed. GROSS DESCRIPTION A. Received in fixative is one container labeled with the patient's name and designated bilateral fallopian tubes. The specimen consists of bilateral fallopian tubes including fimbrial ends measuring 6.5 cm in length and 0.7 cm in diameter and 6.5cm in length and 0.9cm in diameter. The fallopian tubes are not identified as right or left. Sections reveal unremarkable cut surfaces. Network Cabler sections are submitted in two cassettes with each cassette containing one fallopian tube. B. Received in fixative is one container labeled with the patient's name and designated Endometrial biopsy. The specimen consists of multiple irregular fragments of hemorrhagic soft tissue that in aggregate measure 5.0 x 3.0 x 0.2 cm. The specimen is totally submitted in two cassettes. SJJessica 08/21/2024 TC:5 CPT:01502,62844w0
--- NOTE | 2024-08-21 08:03 | PCM.PN.BLA ---
Progress Note Pt seen in pre op. She is having RLQ and right side pain. Offers no other complaints. Assessment & Plan Assessment/Plan (1) Request for sterilization: (2) Ectopic : QUALIFIERS: Location of ectopic : tubal Intrauterine status: without intrauterine Laterality: right Qualified Code(s): O00.101 - Right tubal without intrauterine PLAN: Discussed r/b/a and recovery with laparoscopic bilateral salpingectomy. Questions answered. Patient desires permanent sterilization, and understands sterilization is permanent and irreversible with risk of regret. She requests to proceed with laparoscopic bilateral salpingectomy for ruptured ectopic and request for sterilization.
--- NOTE | 2024-08-21 08:12 | DCINST_ITS ---
Discharge Instructions Diet Discharge Diet: No restrictions DC O2, CPAP, BIPAP needs Additional Home O2 Discharge instructions: No Dressing / Incision Discharge Activity: May Drive (once you are more than 24 hours out from surgery, and not requiring pain medication) and May Shower (once you are more than 24 hours out from surgery) May resume sexual activity in: 1-2 weeks (nothing in the vagina and no soaking in water for 1-2 weeks while you are having the bleeding) Ice area for (Minutes): 15 Weight Bearing Status: Weight bearing as tolerated Lifting Restrictions: nothing heavier than 15-20 pounds for 1 week Dressing / Incision Call your doctor if your incision/area has: Continuous Slow Oozing, Sudden Increased Bleeding, Increased Pain/ Swelling, Increased Redness, Foul Smelling Discharge and Swelling at the incision site Call your doctor if you observe: Fever of 101 or Higher, Coldness, Increased Pain, Numbness or Tingling, Inability to urinate, Inability to have a bowel movement, Using more than 1 pad per hour, Shortness of breath, Dizziness, Swelling in the ankles, Chest pain, Increased palpitations (irregular heartbeat), Calf discomfort and Uncontrolled pain Suture Line Care: Avoid Pulling/Pushing and Avoid Pinching/Bending Remove Dressing in: leave until fall off (the glue will peel up over time and you can peel it off or cut the edges. there is suture under the skin that will dissolve in 6-8 weeks) Cleanse incision/area with: Soap & Water Follow Up Care Please Follow Up With: Darlyn Kelly DO When: 1-2 weeks for a post operative follow up Test Results: Test results from this visit will be discussed in further detail at your follow- up appointment, if applicable. Discharge Plan Admission Primary Reason for Your Visit: surgery Attending Provider: Esthela Ybarra Primary Care Provider: Debbie Glez,Lynn Primary Instructions Print Language: [place] Discharge Orders/Prescriptions Prescriptions: New acetaminophen [Tylenol] 325 mg tablet 650 mg PO Q6H PRN (Reason: pain) Qty: 30 0RF ibuprofen 600 mg tablet 600 mg PO Q6H PRN (Reason: pain) Qty: 30 0RF Continued cetirizine [Zyrtec] 10 mg tablet 10 mg PO DAILY Referrals / Follow Up: Care Physician,No Primary [Primary Care Provider] - Disposition Disposition (needs filled in before D/C Order can be placed): Home, Self Care
--- NOTE | 2024-08-21 09:15 | OP.PCM_ITS ---
Problems Associated Problem List Diagnoses (1) , location unknown: (2) Request for sterilization: Operative Report (Standard) Operative Information Date of Procedure: 08/21/24 Pre-Operative Diagnosis: of unknown location, request for sterilization, acute pain Post-Operative Diagnosis: As above Surgery/Procedure Performed: Diagnostic laparoscopy, bilateral salpingectomy, endometrial biopsy paper products printer: Yes Replanting Machine Operator: Janae SHEN Tasks completed by hotel assistant manager: Closing, Insert Trochanter and Retracting Type of Anesthesia: General RN Documented Start/Stop Times: Operation Date: 08/21/24 08:00 Case Time Into Pre-Op 08/21/24 07:25 Out of Pre-Op 08/21/24 08:07 Anesthesia Start 08/21/24 08:09 Into Room 08/21/24 08:09 Procedure Start 08/21/24 08:32 Procedure End 08/21/24 09:08 Anesthesia End 08/21/24 09:24 Out of Room 08/21/24 09:24 Procedure Start Time: 08:32 Procedure Stop Time: 09:08 Select all DRAINS/GRAFTS/IMPLANTS that apply: None Special Medications: None Estimated Blood Loss: < 20 mL Fluids Replaced: See anesthesia record Specimen collected: Yes Description of specimen(s) removed: Endometrial biopsy Bilateral fallopian tubes Description of surgery: Patient was taken to the operating room where general anesthesia was induced. She was prepped and draped in the dorsal lithotomy position using yellowfin stirrups. From below a weighted speculum was placed in the vagina to expose the cervix. The anterior lip of the cervix was grasped with a single-tooth tenaculum. The cervix was serially dilated and a uterine manipulator was inserted in usual fashion. The single-tooth tenaculum and weighted speculum were removed. Gloves were changed and attention was turned to the abdominal portion of the procedure. Local was infiltrated at all port sites. An infraumbilical incision was made to accommodate a 5 mm port. The 5 mm port was placed under direct visualization using the laparoscope. Once confirmed intraperitoneal, CO2 insufflation was initiated. No injury was noted upon entry. The patient was placed in Trendelenburg position. A right lateral 5 mm port was placed under direct visualization. A left lateral 5 mm port was placed under direct visualization. Again no injury was noted upon entry. The uterus was upheld from below. There was scant/trace normal physiologic fluid noted in the pelvic cul-de-sac. There was no blood, blood clot, or old blood in the abdomen or pelvis. The uterus was normal-appearing. Bilateral fallopian tubes were normal-appearing. The left ovary was normal-appearing. There was a 2 cm cyst on the right ovary that looked most consistent with a hemorrhagic cyst, and it was not ruptured or bleeding. The left fallopian tube was followed out to the fimbriated end and elevated out of the pelvis. A LigaSure device was used to serially clamp, cauterize, and transect along the mesosalpinx hugging adjacent to the fallopian tube until reaching level of the cornua. Once at the level of the cornua the fallopian tube was transected and removed. Next the right fallopian tube was elevated out of the pelvis and followed out to the fimbriated end. The LigaSure device was used to serially clamp, cauterize, and transect along the mesosalpinx hugging adjacent to the fallopian tube. Once at the level of the cornua the fallopian tube was transected and removed. At this point one of my partners was called to discuss the case over the phone for another opinion. Given that no ruptured ectopic was noted at time of surgery, and the patient was hemodynamically stable, decision was made to perform endometrial sampling and gi ve methotrexate in PACU. There was no bleeding in the pelvis and hemostasis was noted after the bilateral salpingectomy. The abdomen was exsufflated and all of the ports were removed. The skin was closed with 4-0 Monocryl and glue. The uterine manipulator was removed from below. An endometrial Pipelle was used to sample the endometrial tissue and this was sent to pathology for review. All instruments and uterine manipulator were removed from the vagina and bleeding was scant. A vaginal sweep was performed. Instrument, sharp, sponge counts were correct x 2 the patient was taken to the recovery in stable condition. A single dose of methotrexate was given in PACU. Surgical Findings: Patient presented to the ER with acute pain and HCG quant of 5426. Pelvic ultrasound showed concern for right sided ruptured ectopic . There was a 2 cm complex right adnexal mass with suspected hemorrhage and complex fluid in the right adnexa on pelvic ultrasound imaging. There was a suspected pseudosac on pelvic ultrasound imaging as well. The patient was requiring narcotic pain medication in the ER for acute pain. The patient reported she desired sterilization 1-2 years ago, and this was put on hold as she had gallbladder removal. She strongly desires sterilization and does not desire future . She was consented for a laparoscopic bilateral salpingectomy and removal of ectopic . The uterus was normal appearing. Trace physiologic free fluid in pelvic CDS. No blood or blood clot present in the abdomen or pelvis. Bilateral fallopian tubes were normal appearing. The left ovary was normal appearing. The right ovary had a 2 cm cyst that appeared most consistent with a hemorrhagic cyst. Complications Complications: No Admit VTE Documentation VTE Present on Admission: Yes VTE Mechan Device Prophylaxis: SCD's
--- NOTE | 2024-08-21 09:29 | PCM.POST.ANE ---
Anesthesia: Postop Eval I Current Vital Signs Temperature: 98.2 F Pulse Rate: 112 Blood Pressure: 109/75 Respiratory Rate: 18 Pulse Ox: 99 Assessment Airway patent: Yes Spontaneous unlabored respirations: Yes Mental status: Awake nausea: No Vomiting: No Anesthesia Complication: No Fluid Hydration Crystalloid volume administer (ml): 300 Total IV fluid infused: 300 Progress Note Anesthesia document: Postop Eval 1 completed: Yes
--- NOTE | 2024-08-21 09:30 | PCM.POSTANE2 ---
Anesthesia Postop Eval I Sum Postop Eval Completion status Anesthesia document: Postop Eval 1 completed: Yes Anesthesia Postop Eval I Summary Anesthesia Postop Eval I Summary: Anesthesia Postop Eval I: Assessment Summary Airway patent Yes 08/21/24 09:30 Spontaneous unlabored Yes 08/21/24 09:30 respirations Mental status Awake 08/21/24 09:30 nausea No 08/21/24 09:30 Vomiting No 08/21/24 09:30 Anesthesia Postop Eval I: Fluid Summary Crystalloid volume administer 300 08/21/24 09:30 (ml) Colloids volume administered ( ml) Blood Product volume administered (ml) Total IV fluid infused 300 08/21/24 09:30 Anesthesia Postop Eval I: Summary Notes Anesthesia Complication No 08/21/24 09:30 Anesthesia Complication Comment: Post-operative progress note Anesthesia: Postop Eval II Evaluation Mental status: Awake Pain Level: 0 nausea: No Vomiting: No
[2024-08-21] MEDS: METHOTREXATE IM (10:00)
--- NOTE | 2024-08-21 10:05 | PCM.PN.BLA ---
Progress Note Pt seen in PACU. Discussed MTX with patient and labs reviewed. Pharmacy was called regarding MTX and dose for single dose protocol. Assessment & Plan Assessment/Plan (1) , location unknown: PLAN: Plan In usual sterile fashion, a single dose of MTX was given in upper gluteal muscle, and a bandage was applied. Will follow HCG levels as an outpatient.
--- NOTE | 2024-08-21 10:19 | SUR.PHASEI ---
AT 10:00, DR CLINE ADMINISTER ORDERED DOSE OF METHOTREXATE IM
--- NOTE | 2024-08-21 11:52 | SUR.PHASEII ---
per pt request, she would like to get scripts over the counter, she already has ibuprofen at home.
== END 2024-08-21 12:05 | disposition home or self-care (01) ==
LOC: ED 06:34 → SDC 06:35 → AC 06:36
PROVIDERS: Obstetrics & Gynecology; Emergency Provider Emergency Medicine; Visit Provider Obstetrics & Gynecology
PROC: 10T24ZZ Resection of Products of Conception, Ectopic, Percutaneous Endoscopic Approach (ICD-10-PCS; CPT 59150; principal; 2024-08-21 07:45)
DX: O36.80X0 Pregnancy with inconclusive fetal viability, not applicable or unspecified (principal); O34.83 Maternal care for other abnormalities of pelvic organs, third trimester; N83.201 Unspecified ovarian cyst, right side; Z30.2 Encounter for sterilization; Z86.718 Personal history of other venous thrombosis and embolism
CPT/HCPCS: 58661; 58100; 00840; 76817; 80048; 80076; 81001; 81025; 83605; 83690; 84702; 85025; 86900; 86901; 87086; 87088; 88302; 88305; 99285; A4216; J2405; J9260